=== PATIENT | male | born 1940 | race Caucasian/White ===

== ENCOUNTER 2024-12-12 15:18 | Inpatient (IN) | payer MEDICARE, SELFPAY ==
[2024-12-12] VITALS (12 sets, daily range): BP systolic 116–149; BP diastolic 66–85; PULSE 55–69; RESP 15–20; TEMP 36.5–36.6; O2SAT 97–99; BMI 24.5
--- NOTE | ~2024-12-12 | XR_ITS ---
EXAMINATION: XR chest 2V Exam Date/Time: 12/12/2024 16:18 CDT HISTORY: chest pain Comparison: 11/02/2024; CT cap 11/02/2024. RESULT: Lines, tubes, and devices: Cholecystectomy clips. Lungs and pleura: Clear. Cardiomediastinal silhouette: Stable. Enlarged thyroid. Other: No acute osseous or upper abdominal finding. IMPRESSION: No acute cardiopulmonary process. Reviewed, dictated and finalized at location K.
--- NOTE | 2024-12-12 15:22 | ECG_ITS ---
Test Date: 2024-12-12 15:30:48 Measurements Intervals Colbert Rate: 51 P: 0 MD: 0 QRS: -40 QRSD: 118 T: 34 QT: 425 QTc: 395 Interpretive Statements ATRIAL FIBRILLATION WITH SLOW VENTRICULAR RESPONSE LEFT AXIS DEVIATION PATTERN CONSISTENT WITH PULMONARY DISEASE INCOMPLETE RIGHT BUNDLE BRANCH BLOCK POOR R WAVE PROGRESSION BASELINE ARTIFACT- I, III ABNORMAL ECG Compared to ECG 11/03/2024 23:38:56 SINUS RHYTHM NO LONGER PRESENT Electronically Signed On 12-12-2024 20:31:41 CDT by Mike Jett D.O.
--- NOTE | 2024-12-12 15:38 | ED_ITS ---
HPI - Chest Pain General Chief Complaint: Chest Pain Stated Complaint: chest pain Time Seen by Provider: 12/12/24 15:26 Source: patient and EMS Mode of arrival: EMS Limitations: no limitations History of Present Illness HPI narrative: 84 years old white male came from halfway by ambulance with sudden onset of chest pain while sitting dull aching, center of the chest, /, got better slightly better on Tylenol, got much better on sublingual nitroglycerin, on arrival to the ED 06/15. Pain radiating to both arms, and lower extremity bilaterally. Patient reports it is difficult to explain how the pain feels like. History of AFib, coronary stent x4. Patient is telling me that he would like to check for Lyme disease because he had a lot of tick bite over the last 2 years. Patient denies any fever, chills, nausea, vomiting, shortness of breath, back pain or abdominal pain Patient report a lot of nightmares with trouble sleeping at night. Related Data Home Medications ?Medication ?Instructions ?Recorded ?Confirmed ?Last Taken ?Type ascorbic acid (vitamin C) 500 mg 500 mg PO DAILY 09/15/21 11/02/24 11/01/24 History tablet vit C 250 mg-vit E 90 mg-zinc 40 1 tablet PO .q12hr 09/15/21 11/02/24 05/09/24 History mg-copper 1 mu-zfyrto-pceyig capsule (PreserVision AREDS-2) vitamin B complex (B 1 tablet PO DAILY 09/15/21 11/02/24 11/01/24 History Complex-Vitamin B12 tablet) acetaminophen 500 mg capsule 500 mg PO BID 07/03/22 11/02/24 11/01/24 History cholecalciferol (vitamin D3) 125 50 mcg PO DAILY 07/03/22 11/02/24 11/01/24 History mcg (5,000 unit) capsule coenzyme Q10 100 mg capsule 200 mg PO DAILY 07/03/22 11/02/24 11/01/24 History omega 3-pzm-gqc-fish oil 1,200 mg 1 cap PO DAILY 07/03/22 11/02/24 11/01/24 History (144 mg-216 mg) capsule (Fish Oil) zbrzvepzpdzd-yewiyvtr-obclzu tablet 1 tablet PO DAILY 04/24/23 11/02/24 11/01/24 History levetiracetam 1,000 mg tablet 1,000 mg PO Q12H 05/24/24 11/02/24 11/01/24 History pantoprazole 40 mg tablet,delayed 20 mg PO Q12H 05/24/24 11/02/24 11/01/24 History release (Protonix) vit C 250 mg-vit E 90 mg-zinc 40 1 tablet PO BID 11/02/24 11/02/24 11/01/24 History mg-copper 1 au-foiwqn-zvhrip capsule (Eye Health AREDS-2) Allergies Allergy/AdvReac Type Severity Reaction Status Date / Time No Known Allergies Allergy Verified 12/12/24 15:30 Review of Systems 2 Review of Systems: All systems reviewed & are unremarkable except as noted in HPI and below PMFSH Past Medical History Medical History History of GI diverticular bleed (07/2023) Diverticulitis Chronic GERD Atrial fibrillation Ischemic cardiomyopathy Coronary artery disease Hyperlipidemia Diet-controlled diabetes mellitus Cerebrovascular accident with no reported residual deficits Chronic vascular disorders of intestine Essential (primary) hypertension Cerebral atherosclerosis Epilepsy, unspecified, not intractable, without status epilepticus Generalized anxiety disorder Glaucoma Surgical History Surgical History History of cardiac catheterization 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 Code status: Full code. Smoking packs per day: 1.5 Smoking cigarettes per day: 30.0 Years smoked: 10 Smoking pack-years: 15.00 Smoking status: Former smoker Tobacco type: cigarettes Smokeless tobacco user: chewing tobacco Second hand tobacco smoke exposure: Yes Smoking end date: 11/02/24 Additional smoking assessment comments: quit chewing tobacco in 2022 Alcohol intake: former Substance use: never Substance use type: does not use Do You Feel Safe in your Home?: Yes Lack of Transportation: No Lack of Food: Never True Current Housing: I Have Housing Concerned About Future Housing: No Difficulty Paying Gas/Electric Bills: No Difficulty Paying for Meds: No Currently Unemployed: No Education: Trade/Vocational Certificate Difficulty w/ Childcare or Family Care: No Living arrangements: with family Additional living arrangements comments: Lives with in [place]. Ambulates with a walker. 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 Spiritual care concerns: No Exam 2 Narrative: General appearance: Well-developed, well-nourished Skin: Normal color Head: Normocephalic, nontraumatic Eyes: Clear conjunctiva ENT: Oropharynx normal, ears normal, nose normal Neck: Supple, nontender Chest and respiratory: Airway patent, no respiratory distress, no accessory muscle use Heart: Regular rate/rhythm Abdomen: Soft, nontender, no organomegaly, quiet bowel sounds Vascular: Normal peripheral pulses, normal capillary refill. Musculoskeletal: Normal range of motion, nontender back Neurologic: Alert and oriented ?3, STITCHDOWNS TOE FORMER is normal as tested, no gross motor deficit Course Vital Signs Vital signs: Vital Signs Temperature 36.6 C 12/12/24 15:23 Pulse Rate 58 L 12/12/24 15:23 Respiratory Rate 20 12/12/24 15:23 Blood Pressure 140/85 12/12/24 15:23 Pulse Oximetry 99 12/12/24 15:23 Oxygen Delivery Room Air 12/12/24 15:23 Temperature 36.6 C 12/12/24 15:23 Pulse Rate 63 12/12/24 15:29 Respiratory Rate 20 12/12/24 15:23 Blood Pressure 140/85 12/12/24 15:23 Pulse Oximetry 99 12/12/24 15:23 Oxygen Delivery Room Air 12/12/24 15:23 MDM - Chest Pain MDM Narrative Medical decision making narrative: Patient came with sudden onset of chest pain 11/12 currently 06/15 Vital signs showing heart rate of 58 beats per minute, AFib. Otherwise within normal limit Physical examination showing AFib. Differential diagnosis include acute coronary syndrome, anxiety like symptoms, chest wall pain, costochondritis, esophagitis, pneumonia, pleural effusion. Blood workup today include CBC, CMP, troponin, proBNP and coags showed sodium 128, pro BMP 2550 EKG on arrival showed AFib with slow ventricular response at 51 beats per minute Chest x-ray showed no acute abnormalities Currently patient is pain-free and symptom-free. Admit to hospitalist with diagnosis of chest pain, hyponatremia, and insomnia Differential Diagnosis Differential diagnosis: Likely stable angina, unstable angina pectoris, atypical chest pain, costochondritis and chest pain Medical Records Data Attestation: I reviewed the patient's medical records. Lab Data Attestation: I reviewed the patient's lab results. 12/12/24 15:36 12/12/24 15:36 Labs: Lab Results 12/12/24 Range/Units 15:36 WBC 6.5 (4.5-10.0) K/mm3 RBC 3.60 L (4.6-6.20) M/mm3 Hgb 11.7 L (14.0-18.0) g/dL Hct 34.9 L (42.0-52.0) % MCV 96.9 (80-100) fl MCH 32.5 (26-34) pg MCHC 33.5 (32-36) g/dl RDW 14.1 (11.5-14.5) % Plt Count 207 (150-375) k/mm3 MPV 8.4 (7.4-10.4) fl Immature Gran % (Auto) 1.1 H (0-0.5) % Neut % (Auto) 64.0 (45.5-73.1) % Lymph % (Auto) 16.2 L (18.3-44.2) % Dane % (Auto) 13.0 H (2.6-8.5) % Eos % (Auto) 4.6 H (0-4.4) % Baso % (Auto) 1.1 (0.2-1.2) % Lymph # (Auto) 1.06 (0.9-3.2) K/mm3 Dane # (Auto) 0.9 H (0.1-0.6) K/mm3 Eos # (Auto) 0.3 (0-0.3) K/mm3 Baso # (Auto) 0.1 (0.0-0.1) K/mm3 Abs Immat Gran (auto) 0.07 H (0.00-0.031) K/mm3 Absolute Neuts (auto) 4.2 (1.3-6.7) K/mm3 Absolute Nucleated RBC 0.000 (0.0-0.012) K/mm3 Nucleated RBC % 0.0 (0.0-0.2) % PT 13.1 (11.1-14.7) Seconds INR 1.0 APTT 28.6 (22.3-36.8) Seconds Sodium 128 L (137-145) mmol/L Potassium 4.9 (3.4-5.0) mmol/L Chloride 95 L (98-107) mmol/L Carbon Dioxide 26 (22-30) mmol/L Anion Gap 7 (4-12) mmol/L BUN 13 (9-20) mg/dL Creatinine 0.92 (0.7-1.3) mg/dL Estim Creat Clear Calc 53 ml/min Estimated GFR > 60 (59 - ) Glucose 108 (65-110) mg/dL Calcium 9.1 (8.4-10.2) mg/dL Total Bilirubin 0.4 (0.2-1.3) mg/dL AST 30 (17-59) U/L ALT 24 (6-50) U/L Alkaline Phosphatase 69 (38-126) U/L Troponin I < 0.012 (0.000-0.034) ng/mL NT-Pro-B Natriuret Pep 2550 H (19.9-100) pg/mL Total Protein 6.5 (6.3-8.2) g/dL Albumin 4.0 (3.5-5.1) g/dL Lipase 196 (23-300) U/L Imaging Data Radiologist's impression: Impressions Chest X-Ray 12/12/24 16:43 IMPRESSION: No acute cardiopulmonary process. ECG Data EKG #1: Attestation: I personally reviewed and interpreted this ECG as follows: ECG completion date: 12/12/24 Interpretation: AFib with slow ventricular response at 51 beats per minute patent consistent with pulmonary disease Discharge Plan Discharge Clinical Impression: Chest pain, Acute hyponatremia, Chronic a-fib, Insomnia Patient Disposition: Still a Patient Condition: Stable Additional Instructions: Admit to hospitalist Patient Language: Mongolian Prescriptions: No Action clopidogrel 75 mg tablet 75 mg PO DAILY Qty: 90 1RF metoprolol succinate 50 mg tablet extended release 24 hr 50 mg PO DAILY Qty: 100 1RF rosuvastatin 40 mg tablet 40 mg PO DAILY Qty: 90 1RF coenzyme Q10 100 mg capsule 200 mg PO DAILY cholecalciferol (vitamin D3) 125 mcg (5,000 unit) capsule 50 mcg PO DAILY acetaminophen 500 mg capsule 500 mg PO BID omega 4-pen-qvg-fish oil [Fish Oil] 1,200 (144-216) mg capsule 1 cap PO DAILY ferrous sulfate 325 mg (65 mg iron) tablet 325 mg PO DAILY Qty: 90 0RF ascorbic acid (vitamin C) 500 mg Tablet 500 mg PO DAILY vitamin B complex [B Complex-Vitamin B12] Tablet 1 tablet PO DAILY PreserVision AREDS-2 250-90-40-1 mg Capsule 1 tablet PO .q12hr rrjzqfeegyld-bopwhxcp-fxlfdw Tablet 1 tablet PO DAILY pantoprazole [Protonix] 40 mg tablet,delayed release (DR/EC) 20 mg PO Q12H levetiracetam 1,000 mg tablet 1,000 mg PO Q12H polyethylene glycol 3350 [Miralax] 17 gram Powder In Packet 17 g PO QAM Qty: 14 0RF Eye Health AREDS-2 250-90-40-1 mg capsule 1 tablet PO BID Follow-up/Referrals: Daren Colvin MD [Primary Care Provider] -
[2024-12-12 15:41] LABS: Hematocrit 34.9 % (42.0-52.0); Hemoglobin 11.7 g/dL (14.0-18.0); Immature Granulocyte Percent A 1.1 % (0-0.5); Lymphocytes Absolute Auto 1.06 K/mm3 (0.9-3.2); Mean Corpuscular HGB Conc 33.5 g/dl (32-36); Mean Corpuscular Hemoglobin 32.5 pg (26-34); Mean Corpuscular Volume 96.9 fl (80-100); Nucleated Red Blood Cells Absolute Auto 0.000 K/mm3 (0.0-0.012); Nucleated Red Blood Cells Perc 0.0 % (0.0-0.2); Platelet Count Result 207 k/mm3 (150-375); Red Blood Count 3.60 M/mm3 (4.6-6.20); White Blood Count 6.5 K/mm3 (4.5-10.0)
[2024-12-12 15:50] LABS: Alanine Aminotransferase 24 U/L (6-50); Albumin Level 4.0 g/dL (3.5-5.1); Alkaline Phosphatase 69 U/L (38-126); Anion Gap 7 mmol/L (4-12); Aspartate Amino Transferase 30 U/L (17-59); Bilirubin,Total 0.4 mg/dL (0.2-1.3); Blood Urea Nitrogen 13 mg/dL (9-20); Calcium 9.1 mg/dL (8.4-10.2); Carbon Dioxide 26 mmol/L (22-30); Chloride 95 mmol/L (98-107); Estimated CRCL calculation 53 ml/min; Estimated Glomerular Filt Rate > 60; Glucose 108 mg/dL (65-110); Lipase 196 U/L (23-300); Potassium 4.9 mmol/L (3.4-5.0); Sodium 128 mmol/L (137-145); Total Protein 6.5 g/dL (6.3-8.2)
[2024-12-12 15:52] LABS: INR 1.0; Prothrombin Time 13.1 Seconds (11.1-14.7)
[2024-12-12 15:53] LABS: Partial Thromboplastin Time 28.6 Seconds (22.3-36.8)
[2024-12-12 16:02] LABS: Troponin I < 0.012 ng/mL (0.000-0.034)
[2024-12-12 16:26] LABS: NT Pro B Type Natriuretic Pept 2550 pg/mL (19.9-100)
--- NOTE | 2024-12-12 16:43 | P.HP_ITS ---
H&P: HPI History of Present Illness Date/Time: 12/12/24 16:43 Chief Complaint: Chest pain Narrative: 84-year-old male past medical history of atrial fib, CAD status post stents, hyperlipidemia, hypertension, diabetes and GERD presents the hospital with chest pain. Patient states that he was walking react chest pain as 7/10. Was given Tylenol and nitro and taken to the hospital. By the time he got to the hospital his chest pain was relieved. He stated the pain radiated to both arms. According to ED notes the patient on IV checked for Lyme disease as he had a bite over 2 years ago. Patient denies all symptoms at bedside exam. Lab work shows hemoglobin 11.7, sodium of 128, chloride 95, 1st troponin negative, BNP 2550, EKG shows atrial fibrillation with a rate of 51. Patient is being admitted for chest pain workup. Review of Systems Review of Systems: 12 systems were reviewed and are negativ e except for as per HPI. 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 Code status: Full code. Smoking packs per day: 1.5 Smoking cigarettes per day: 30.0 Years smoked: 10 Smoking pack-years: 15.00 Smoking status: Former smoker Smokeless tobacco user: chewing tobacco Second hand tobacco smoke exposure: Yes Additional smoking assessment comments: quit chewing tobacco in 2022 Alcohol intake: former Substance use: never Substance use type: does not use Do You Feel Safe in your Home?: Yes Lack of Transportation: No Lack of Food: Never True Current Housing: I Have Housing Concerned About Future Housing: No Difficulty Paying Gas/Electric Bills: No Difficulty Paying for Meds: No Currently Unemployed: No Education: Trade/Vocational Certificate Difficulty w/ Childcare or Family Care: No Living arrangements: with family Additional living arrangements comments: Lives with in [place]. Ambulates with a walker. 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 Spiritual care concerns: No Meds Home Medications and Allergies Home Medications ?Medication ?Instructions ?Recorded ?Confirmed ?Type ascorbic acid (vitamin C) 500 mg 500 mg PO DAILY 09/15/21 11/02/24 History tablet vit C 250 mg-vit E 90 mg-zinc 40 1 tablet PO .q12hr 09/15/21 11/02/24 History mg-copper 1 at-rjgmgu-zhlywr capsule (PreserVision AREDS-2) vitamin B complex (B 1 tablet PO DAILY 09/15/21 11/02/24 History Complex-Vitamin B12 tablet) acetaminophen 500 mg capsule 1,000 mg PO .q12hr 07/03/22 12/12/24 History cholecalciferol (vitamin D3) 125 50 mcg PO DAILY 07/03/22 11/02/24 History mcg (5,000 unit) capsule coenzyme Q10 100 mg capsule 200 mg PO DAILY 07/03/22 11/02/24 History omega 5-oxf-uae-fish oil 1,200 mg 1 cap PO DAILY 07/03/22 11/02/24 History (144 mg-216 mg) capsule (Fish Oil) bviyusmbmzrh-jrrsmyfa-akeopm tablet 1 tablet PO DAILY 04/24/23 11/02/24 History ferrous sulfate 325 mg (65 mg 325 mg PO DAILY #90 tabs 11/06/23 11/02/24 Rx iron) tablet clopidogrel 75 mg tablet 75 mg PO DAILY #90 tabs 03/25/24 12/12/24 Rx metoprolol succinate 50 mg 50 mg PO DAILY #100 tabs 03/25/24 12/12/24 Rx tablet,extended release 24 hr rosuvastatin 40 mg tablet 40 mg PO DAILY #90 tabs 03/25/24 12/12/24 Rx levetiracetam 1,000 mg tablet 1,000 mg PO Q12H 05/24/24 12/12/24 History pantoprazole 40 mg tablet,delayed 20 mg PO Q12H 05/24/24 12/12/24 History release (Protonix) polyethylene glycol 3350 17 gram 17 g PO QAM #14 ea 05/27/24 11/02/24 Rx oral powder packet (Miralax) vit C 250 mg-vit E 90 mg-zinc 40 1 tablet PO BID 11/02/24 11/02/24 History mg-copper 1 vo-pwusif-yhwhhl capsule (Eye Health AREDS-2) Allergies Allergy/AdvReac Type Severity Reaction Status Date / Time No Known Allergies Allergy Verified 12/12/24 18:25 Vital Signs Vital Signs - 24 hr 12/12/24 15:23 12/12/24 15:29 Temperature 97.8 F Pulse Rate 58 L 63 Respiratory Rate 20 Blood Pressure 140/85 Pulse Oximetry 99 Oxygen Delivery Room Air Exam Narrative: General: well appearing, appears stated age. HEENT: normocephalic, atraumatic. Mucous membranes moist. EOMI, PERRLA, bilateral sclera anicteric, no conjunctival injection. Neck supple without JVD, lymphadenopathy, or bruit. Respiratory: clear to ascultation bilaterally. No rales/rhonic/wheezes. Cardiovascular: Regular rate and rhythm, normal S1-S2 upon ascultation. No murmurs, rubs, or clicks. PMI is nondisplaced, capillary refill less than 3 second. Abdomen: Soft, round, no pulsatile masses, nondistended and nontender. No rebound, no guarding. No CVA tenderness, no hepatosplenomegaly. Bowel sounds present to all four quadrants. No high pitch or tinkling sounds, resonant to percussion. Extremities: No cyanosis, clubbing, or edema present. Pulses are palpable 2/2. Active ROM to all four extremities. Neuro: Alert and orientated x 4. PERRLA. Cranial nerves 2-12 intact without focal deficit. Skin: Warm, dry, and intact, without rash, erythema, or lesion. Psych: pleasant, cooperative, normal speech, normal affect, no hallucinations, no dysarthia H&P: Results Labs Labs: Short CBC 12/12/24 Range/Units 15:36 WBC 6.5 (4.5-10.0) K/mm3 Hgb 11.7 L (14.0-18.0) g/dL Hct 34.9 L (42.0-52.0) % Plt Count 207 (150-375) k/mm3 BMP 12/12/24 15:36 Sodium 128 L Potassium 4.9 Chloride 95 L Carbon Dioxide 26 BUN 13 Creatinine 0.92 Glucose 108 Calcium 9.1 Cardiac Enzymes 12/12/24 Range/Units 15:36 Troponin I < 0.012 (0.000-0.034) ng/mL Liver Function 12/12/24 Range/Units 15:36 Total Bilirubin 0.4 (0.2-1.3) mg/dL AST 30 (17-59) U/L ALT 24 (6-50) U/L Alkaline Phosphatase 69 (38-126) U/L Albumin 4.0 (3.5-5.1) g/dL Assessment and Plan Assessment and plan (1) Chest pain: Code(s): R07.9 - Chest pain, unspecified Status: Acute Assessment and Plan: Chest pain workup Trend troponins EKG as needed Nitro Echocardiogram pending (2) Hyponatremia: Code(s): E87.1 - Hypo-osmolality and hyponatremia Status: Acute Assessment and Plan: Lasix x1 Regular diet (3) Chronic a-fib: Code(s): I48.20 - Chronic atrial fibrillation, unspecified Status: Acute Assessment and Plan: Continue metoprolol (4) Seizures: Code(s): R56.9 - Unspecified convulsions Status: Acute Assessment and Plan: Continue Keppra Quality VTE Prophylaxis VTE prophylaxis: mechanical ordered and pharmacologic ordered Hospitalist MIPS Advance Care Plan I have confirmed that the patient's Advanced Care Plan is present, code status is documented, or surrogate decision maker is listed in patient medical record.: Yes Medication Reconciliation I have utilized all available resources to obtain, update and review the patients current medications (includes all prescriptions, OTC, herbals, cannabis, and nutritional supplements).: Yes
--- NOTE | 2024-12-12 18:24 | ADMGEN ---
This patient, Fernando Rocha, was admitted to IMU Room 209-01. Patient/family oriented to hospital policies and general routines including ID bracelet, bed and alarms, visiting hours, pain management, procedures, bathroom and other care routines, personal items, smoking policy, room service/diet, and visiting hours. Information on how to activate the Rapid Response Team has been discussed. Patient/Family are encouraged to report perceived risks to care and to ask questions if they do not understand what they are told or what they should do.
[2024-12-12] MEDS: SODIUM CHLORIDE 0.9% IV 1,000 ML 60 ML IV CONT (18:59)
[2024-12-12 19:31] LABS: Troponin I < 0.012 ng/mL (0.000-0.034)
[2024-12-12] MEDS: FUROSEMIDE INJ 40 MG/4 ML VIAL 20 MG IV PUSH (21:18)
[2024-12-12] MEDS: PANTOPRAZOLE SOD SESQUIHYDRATE 20 MG TAB PO (21:19)
[2024-12-12 22:06] LABS: Troponin I < 0.012 ng/mL (0.000-0.034)
[2024-12-13] VITALS (17 sets, daily range): BP systolic 128–171; BP diastolic 66–85; PULSE 53–85; RESP 16–20; TEMP 36.4–37; O2SAT 95–100
[2024-12-13 05:00] LABS: Hematocrit 36.2 % (42.0-52.0); Hemoglobin 11.7 g/dL (14.0-18.0); Immature Granulocyte Percent A 1.3 % (0-0.5); Lymphocytes Absolute Auto 1.14 K/mm3 (0.9-3.2); Mean Corpuscular HGB Conc 32.3 g/dl (32-36); Mean Corpuscular Hemoglobin 31.9 pg (26-34); Mean Corpuscular Volume 98.6 fl (80-100); Nucleated Red Blood Cells Absolute Auto 0.000 K/mm3 (0.0-0.012); Nucleated Red Blood Cells Perc 0.0 % (0.0-0.2); Platelet Count Result 194 k/mm3 (150-375); Red Blood Count 3.67 M/mm3 (4.6-6.20); White Blood Count 6.3 K/mm3 (4.5-10.0)
[2024-12-13 05:11] LABS: Anion Gap 6 mmol/L (4-12); Blood Urea Nitrogen 12 mg/dL (9-20); Calcium 9.0 mg/dL (8.4-10.2); Carbon Dioxide 29 mmol/L (22-30); Chloride 94 mmol/L (98-107); Estimated CRCL calculation 51 ml/min; Estimated Glomerular Filt Rate > 60; Glucose 92 mg/dL (65-110); Potassium 4.6 mmol/L (3.4-5.0); Sodium 129 mmol/L (137-145)
--- NOTE | 2024-12-13 06:24 | PC.NURSE ---
12/13/24 Message left for Kimo MATTSON (Hawk richards) to call back in regards to obtaining an updated medication list for this patient.
--- NOTE | 2024-12-13 08:45 | P.HP_ITS ---
H&P: HPI History of Present Illness Date/Time: 12/13/24 08:45 Chief Complaint: Chest pain Narrative: This is a 84-year-old male with history of bilateral cerebellar strokes, diverticulosis, PMFSH Past Medical History Medical History History of GI diverticular bleed (07/2023) Diverticulitis Chronic GERD Atrial fibrillation Ischemic cardiomyopathy Coronary artery disease Hyperlipidemia Diet-controlled diabetes mellitus Cerebrovascular accident with no reported residual deficits Chronic vascular disorders of intestine Essential (primary) hypertension Cerebral atherosclerosis Epilepsy, unspecified, not intractable, without status epilepticus Generalized anxiety disorder Glaucoma Surgical History Surgical History History of cardiac catheterization History of intravascular stent placement (2020) for superior mesenteric artery stenosis History of coronary artery stent placement x4 History of cholecystectomy (1999) History of open reduction and internal fixation (ORIF) procedure (04/2023) repair of right hip fracture History of bilateral knee replacement left 2010 right 2019 History of cataract extraction Family History Family History Father Cerebrovascular accident Sibling Breast cancer Sister Diabetes mellitus Kidney failure Social History Social History Social History: Surrogate medical decision maker: Sera Rocha, spouse. Code status: Full code. Smoking packs per day: 1.5 Smoking cigarettes per day: 30.0 Years smoked: 10 Smoking pack-years: 15.00 Smoking status: Former smoker Smokeless tobacco user: chewing tobacco Second hand tobacco smoke exposure: Yes Additional smoking assessment comments: quit chewing tobacco in 2022 Alcohol intake: former Substance use: never Substance use type: does not use Do You Feel Safe in your Home?: Yes Lack of Transportation: No Lack of Food: Never True Current Housing: I Have Housing Concerned About Future Housing: No Difficulty Paying Gas/Electric Bills: No Difficulty Paying for Meds: No Currently Unemployed: No Education: Trade/Vocational Certificate Difficulty w/ Childcare or Family Care: No Living arrangements: with family Additional living arrangements comments: Lives with in [place]. Ambulates with a walker. 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 Spiritual care concerns: No Meds Home Medications and Allergies Home Medications ?Medication ?Instructions ?Recorded ?Confirmed ?Type ascorbic acid (vitamin C) 500 mg 500 mg PO DAILY 09/15/21 11/02/24 History tablet vit C 250 mg-vit E 90 mg-zinc 40 1 tablet PO .q12hr 09/15/21 11/02/24 History mg-copper 1 ot-swczod-ymujzv capsule (PreserVision AREDS-2) vitamin B complex (B 1 tablet PO DAILY 09/15/21 11/02/24 History Complex-Vitamin B12 tablet) acetaminophen 500 mg capsule 1,000 mg PO .q12hr 07/03/22 12/12/24 History cholecalciferol (vitamin D3) 125 50 mcg PO DAILY 07/03/22 11/02/24 History mcg (5,000 unit) capsule coenzyme Q10 100 mg capsule 200 mg PO DAILY 07/03/22 11/02/24 History omega 6-gpp-jzl-fish oil 1,200 mg 1 cap PO DAILY 07/03/22 11/02/24 History (144 mg-216 mg) capsule (Fish Oil) yjdeahtbgbxp-uyvhvegu-qdfmkx tablet 1 tablet PO DAILY 04/24/23 11/02/24 History ferrous sulfate 325 mg (65 mg 325 mg PO DAILY #90 tabs 11/06/23 11/02/24 Rx iron) tablet clopidogrel 75 mg tablet 75 mg PO DAILY #90 tabs 03/25/24 12/12/24 Rx metoprolol succinate 50 mg 50 mg PO DAILY #100 tabs 03/25/24 12/12/24 Rx tablet,extended release 24 hr rosuvastatin 40 mg tablet 40 mg PO DAILY #90 tabs 03/25/24 12/12/24 Rx levetiracetam 1,000 mg tablet 1,000 mg PO Q12H 05/24/24 12/12/24 History pantoprazole 40 mg tablet,delayed 20 mg PO Q12H 05/24/24 12/12/24 History release (Protonix) polyethylene glycol 3350 17 gram 17 g PO QAM #14 ea 05/27/24 11/02/24 Rx oral powder packet (Miralax) vit C 250 mg-vit E 90 mg-zinc 40 1 tablet PO BID 11/02/24 11/02/24 History mg-copper 1 yw-xmzjnd-etnhkq capsule ([facility] AREDS-2) Allergies Allergy/AdvReac Type Severity Reaction Status Date / Time No Known Allergies Allergy Verified 12/13/24 06:20 Vital Signs Vital Signs - 24 hr 12/12/24 15:23 12/12/24 15:24 12/12/24 15:29 Temperature 97.8 F Pulse Rate 58 L 60 63 Respiratory Rate 20 15 Blood Pressure 140/85 140/85 Pulse Oximetry 99 99 Oxygen Delivery Room Air 12/12/24 15:31 12/12/24 16:15 12/12/24 16:16 Temperature Pulse Rate 61 62 68 Respiratory Rate 18 17 15 Blood Pressure 139/81 126/73 Pulse Oximetry 99 98 97 Oxygen Delivery 12/12/24 17:41 12/12/24 18:48 12/12/24 20:00 Temperature 97.7 F 97.8 F Pulse Rate 68 55 L 69 Respiratory Rate 18 20 18 Blood Pressure 116/70 130/66 149/74 H Pulse Oximetry 99 98 99 Oxygen Delivery 12/12/24 20:00 12/12/24 20:55 12/12/24 22:00 Temperature Pulse Rate 62 69 58 L Respiratory Rate 18 Blood Pressure Pulse Oximetry 99 Oxygen Delivery Room Air 12/12/24 22:04 12/13/24 00:00 12/13/24 00:00 Temperature 98.0 F Pulse Rate 58 L 58 L Respiratory Rate 18 Blood Pressure 136/76 Pulse Oximetry 99 99 Oxygen Delivery Room Air 12/13/24 00:22 12/13/24 01:47 12/13/24 04:00 Temperature 97.9 F Pulse Rate 58 L 54 L 63 Respiratory Rate 18 16 Blood Pressure 158/85 H Pulse Oximetry 99 99 Oxygen Delivery Room Air 12/13/24 04:00 12/13/24 04:00 12/13/24 06:00 Temperature Pulse Rate 63 53 L 54 L Respiratory Rate 16 Blood Pressure Pulse Oximetry 99 Oxygen Delivery Room Air 12/13/24 08:00 Temperature 97.7 F Pulse Rate 76 Respiratory Rate 16 Blood Pressure 171/81 H Pulse Oximetry 98 Oxygen Delivery H&P: Results Labs Labs: Short CBC 12/12/24 12/13/24 Range/Units 15:36 04:27 WBC 6.5 6.3 (4.5-10.0) K/mm3 Hgb 11.7 L 11.7 L (14.0-18.0) g/dL Hct 34.9 L 36.2 L (42.0-52.0) % Plt Count 207 194 (150-375) k/mm3 BMP 12/12/24 12/13/24 15:36 04:27 Sodium 128 L 129 L Potassium 4.9 4.6 Chloride 95 L 94 L Carbon Dioxide 26 29 BUN 13 12 Creatinine 0.92 0.97 Glucose 108 92 Calcium 9.1 9.0 Cardiac Enzymes 12/12/24 12/12/24 12/12/24 Range/Units 15:36 19:04 21:29 Troponin I < 0.012 < 0.012 < 0.012 (0.000-0.034) ng/mL Liver Function 12/12/24 Range/Units 15:36 Total Bilirubin 0.4 (0.2-1.3) mg/dL AST 30 (17-59) U/L ALT 24 (6-50) U/L Alkaline Phosphatase 69 (38-126) U/L Albumin 4.0 (3.5-5.1) g/dL
--- NOTE | 2024-12-13 08:51 | PM.IMPN ---
Progress Note: A&P Assessment and Plan (1) Chest pain: Qualifiers: Chest pain type: unspecified Qualified Code(s): R07.9 - Chest pain, unspecified Code(s): R07.9 - Chest pain, unspecified Status: Acute (2) Essential (primary) hypertension: Code(s): I10 - Essential (primary) hypertension Status: Chronic (3) Atrial fibrillation: Code(s): I48.91 - Unspecified atrial fibrillation Status: Acute (4) Seizures: Code(s): R56.9 - Unspecified convulsions Status: Acute Plan This is an 84-year-old male who has a PMH of diverticulosis, history of acute GI bleed, gastritis/peptic ulcer disease, ischemic cardiomyopathy with preserved ejection fraction, atrial fibrillation, CAD status post Megatron stent to 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 His medical history is taken from chart review as he is a poor historian. He does not remember why he is not on a blood thinner for his atrial fibrillation. He reports taking Plavix but not aspirin. He lives at assisted living, reports he was doing nothing around his residence when he had left-sided chest pressure. He had associated dizziness and radiation into both arms. He received aspirin and nitroglycerin with EMS and his symptoms resolved. He had no further chest pain. Denies shortness of breath, nausea vomiting, fever, abdominal pain. He feels this is not the same as his usual peptic ulcer disease. Patient is saturating 99% on room air, atrial fibrillation with controlled rate, blood pressure 140/85. EKG demonstrating AFib with slow ventricular response, complete right bundle branch block, poor R-wave progression, no acute ST changes. Overnight he received Lasix 20 mg IV x1. He was started on a daily aspirin. ----- Concerning for cardiac pain. Due to the patient's complex coronary artery disease, will consult Cardiology. He is unable to clearly tell me the timeline of his cardiac events but he says he had 4 stents placed at [facility] in [place] and then later Dr. Montes sent him to [facility] as he had restenoses. The above-mentioned Megatron stent to a high-grade complex ostial stenosis is taken from Dr. Fleissners clinic note from 01/2024 however I do not have any further notes to rely on. At this time we will continue aspirin 81 mg p.o. q.day, Plavix 75 mg p.o. q.day, Crestor 40 mg p.o. q.day. Continue telemetry. As mentioned, he is unsure why he is not taking a blood thinner and does not report any bleeding episodes but upon chart review he does have GI bleeds. He cannot confidently tell me whether he wants to take a blood thinner or not, will defer further discussion to Cardiology. Holding [employer] metoprolol due to atrial fibrillation with slow ventricular response. Continue [employer] Protonix Continue [employer] Keppra 1000 mg p.o. b.i.d. Accu-Cheks a.c. HS with low-dose insulin sliding scale Chronic hyponatremia, continue to monitor. Patient wishes to be DNR. Lovenox 40 mg subQ q.day. diabetic, heart healthy diet. Intake/output, daily weights. Subjective Date/time seen: 12/13/24 08:51 Interval history: No acute overnight events. Patient denies any further chest pain after admission. He has no shortness of breath. He reports he remembers being told he had atrial fibrillation but anticoagulation was never discussed. He denies any major bleeding events. Review of Systems Review of Systems: All systems reviewed & are unremarkable except as noted in HPI and below (Subjective) Exam Const: General: comfortable and no acute distress HENMT: Mouth: Yes moist mucous membranes Eyes: Pupils: Equal, round and reactive pupils present Neck: Neck: supple Resp: Effort & Inspection: normal respiratory effort Auscultation: clear to auscultation bilaterally Cardio: Rate: regular rate Rhythm: abnormal rhythm GI: Inspection: non-distended GI Palp: Yes Soft to palpation Neuro: Motor exam (neuro): 5/5 motor strength present throughout Extrem: General: no edema Objective Data Vital Signs Vital Signs: Vital Signs - 24 hr 12/12/24 15:23 12/12/24 15:24 12/12/24 15:29 Temperature 97.8 F Pulse Rate 58 L 60 63 Respiratory Rate 20 15 Blood Pressure 140/85 140/85 Pulse Oximetry 99 99 Oxygen Delivery Room Air 12/12/24 15:31 12/12/24 16:15 12/12/24 16:16 Temperature Pulse Rate 61 62 68 Respiratory Rate 18 17 15 Blood Pressure 139/81 126/73 Pulse Oximetry 99 98 97 Oxygen Delivery 12/12/24 17:41 12/12/24 18:48 12/12/24 20:00 Temperature 97.7 F 97.8 F Pulse Rate 68 55 L 69 Respiratory Rate 18 20 18 Blood Pressure 116/70 130/66 149/74 H Pulse Oximetry 99 98 99 Oxygen Delivery 12/12/24 20:00 12/12/24 20:55 12/12/24 22:00 Temperature Pulse Rate 62 69 58 L Respiratory Rate 18 Blood Pressure Pulse Oximetry 99 Oxygen Delivery Room Air 12/12/24 22:04 12/13/24 00:00 12/13/24 00:00 Temperature 98.0 F Pulse Rate 58 L 58 L Respiratory Rate 18 Blood Pressure 136/76 Pulse Oximetry 99 99 Oxygen Delivery Room Air 12/13/24 00:22 12/13/24 01:47 12/13/24 04:00 Temperature 97.9 F Pulse Rate 58 L 54 L 63 Respiratory Rate 18 16 Blood Pressure 158/85 H Pulse Oximetry 99 99 Oxygen Delivery Room Air 12/13/24 04:00 12/13/24 04:00 12/13/24 06:00 Temperature Pulse Rate 63 53 L 54 L Respiratory Rate 16 Blood Pressure Pulse Oximetry 99 Oxygen Delivery Room Air 12/13/24 08:00 Temperature 97.7 F Pulse Rate 76 Respiratory Rate 16 Blood Pressure 171/81 H Pulse Oximetry 98 Oxygen Delivery Intake/Output Intake/Output: Intake & Output 12/10/24 12/11/24 12/12/24 12/13/24 23:59 23:59 23:59 23:59 Intake Total 490 Output Total 120 3000 Balance -120 -2510 Meds/Results Medications: Active Medications Generic Name Dose Route Start Last Admin Trade Name Freq PRN Reason Stop Dose Admin Acetaminophen 650 mg 12/12/24 16:46 Acetaminophen 325 Mg Tablet PO Q4H PRN Mild Pain (1-3) or Fever Aspirin 81 mg 12/13/24 08:00 Aspirin 81 Mg Chewable Tablet PO DAILY@0800 [facility] Clopidogrel Bisulfate 75 mg 12/13/24 09:00 Clopidogrel Bisulfate 75 Mg Tablet PO DAILY [facility] Docusate Sodium 100 mg 12/12/24 17:10 Docusate Sodium 100 Mg Capsule PO BID PRN Constipation Enoxaparin Sodium 40 mg 12/13/24 09:00 Enoxaparin 40 Mg/0.4 Ml Syringe SUB-Q DAILY YOHANA Sodium Chloride 1,000 mls @ 60 mls/hr 12/12/24 16:50 12/12/24 18:59 Normal Saline Iv IV CONT 60 mls/hr .[id number] YOHANA Administration Levetiracetam 1,000 mg 12/12/24 21:00 12/12/24 21:19 Levetiracetam 500 Mg Tablet PO 1,000 mg Q12HR YOHANA Administration Metoprolol Succinate 50 mg 12/13/24 09:00 Metoprolol Succinate Ext Rel 50 Mg Tabcr PO DAILY YOHANA Nitroglycerin 0.4 mg 12/12/24 16:46 Nitroglycerin Sl 0.4 Mg Tablet SUBLINGUAL Q5MIN PRN Chest Pain Pantoprazole Sodium 20 mg 12/12/24 21:00 12/12/24 21:19 Pantoprazole Sod Sesquihydrate 20 Mg Tab PO 20 mg Q12HR YOHANA Administration Perflutren Lipid Microsphere 0 ml 12/12/24 19:48 Perflutren Lipid Microspheres 1.5 Ml Vial Diluted To 10 Ml Total Volume IV PUSH 12/15/24 19:48 ONCE PRN adequate visualization Protocol Rosuvastatin Calcium 40 mg 12/13/24 09:00 Rosuvastatin 20 Mg Tablet PO DAILY YOHANA Zolpidem Tartrate 5 mg 12/12/24 16:51 Zolpidem Tartrate (*Crx) 5 Mg Tablet PO HS PRN Insomnia Radiology Results: ITS Impressions Chest X-Ray 12/12/24 16:43 IMPRESSION: No acute cardiopulmonary process. Labs Labs: Laboratory Results - last 24 hr 12/12/24 12/12/24 12/12/24 15:36 19:04 21:29 WBC 6.5 RBC 3.60 L Hgb 11.7 L Hct 34.9 L MCV 96.9 MCH 32.5 MCHC 33.5 RDW 14.1 Plt Count 207 MPV 8.4 Immature Gran % (Auto) 1.1 H Neut % (Auto) 64.0 Lymph % (Auto) 16.2 L [place] % (Auto) 13.0 H Eos % (Auto) 4.6 H Baso % (Auto) 1.1 Lymph # (Auto) 1.06 [place] # (Auto) 0.9 H Eos # (Auto) 0.3 Baso # (Auto) 0.1 Abs Immat Gran (auto) 0.07 H Absolute Neuts (auto) 4.2 Absolute Nucleated RBC 0.000 Nucleated RBC % 0.0 PT 13.1 INR 1.0 APTT 28.6 Sodium 128 L Potassium 4.9 Chloride 95 L Carbon Dioxide 26 Anion Gap 7 BUN 13 Creatinine 0.92 Estim Creat Clear Calc 53 Estimated GFR > 60 Glucose 108 Calcium 9.1 Total Bilirubin 0.4 AST 30 ALT 24 Alkaline Phosphatase 69 Troponin I < 0.012 < 0.012 < 0.012 NT-Pro-B Natriuret Pep 2550 H Total Protein 6.5 Albumin 4.0 Lipase 196 12/13/24 04:27 WBC 6.3 RBC 3.67 L Hgb 11.7 L Hct 36.2 L MCV 98.6 MCH 31.9 MCHC 32.3 RDW 14.1 Plt Count 194 MPV 8.7 Immature Gran % (Auto) 1.3 H Neut % (Auto) 60.6 Lymph % (Auto) 18.2 L [place] % (Auto) 12.8 H Eos % (Auto) 6.1 H Baso % (Auto) 1.0 Lymph # (Auto) 1.14 [place] # (Auto) 0.8 H Eos # (Auto) 0.4 H Baso # (Auto) 0.1 Abs Immat Gran (auto) 0.08 H Absolute Neuts (auto) 3.8 Absolute Nucleated RBC 0.000 Nucleated RBC % 0.0 PT INR APTT Sodium 129 L Potassium 4.6 Chloride 94 L Carbon Dioxide 29 Anion Gap 6 BUN 12 Creatinine 0.97 Estim Creat Clear Calc 51 Estimated GFR > 60 Glucose 92 Calcium 9.0 Total Bilirubin AST ALT Alkaline Phosphatase Troponin I NT-Pro-B Natriuret Pep Total Protein Albumin Lipase
[2024-12-13] MEDS: ROSUVASTATIN 20 MG TABLET 40 MG PO (09:22)
[2024-12-13] MEDS: ASPIRIN 81 MG CHEWABLE TABLET PO (09:22)
[2024-12-13] MEDS: ENOXAPARIN 40 MG/0.4 ML SYRINGE SUB-Q (09:22)
[2024-12-13] MEDS: CLOPIDOGREL BISULFATE 75 MG TABLET PO (09:22)
[2024-12-13] MEDS: PANTOPRAZOLE SOD SESQUIHYDRATE 20 MG TAB PO ×2 (09:22→20:07)
--- NOTE | 2024-12-13 11:09 | ECG_ITS ---
Test Date: 2024-12-13 11:18:19 Measurements Intervals [place] Rate: 64 P: 0 [place]: 0 QRS: -45 QRSD: 131 T: 19 QT: 414 QTc: 427 Interpretive Statements ATRIAL FIBRILLATION RIGHT BUNDLE BRANCH BLOCK LEFT ANTERIOR FASCICULAR BLOCK BASELINE WANDER- V4-V6 ABNORMAL ECG Compared to ECG 12/12/2024 15:30:48 HEART RATE HAS INCREASED Electronically Signed On 12-13-2024 12:34:48 CDT by Mike Jett D.O.
[2024-12-13] MEDS: NITROGLYCERIN SL 0.4 MG TABLET SUBLINGUAL (11:16)
--- NOTE | 2024-12-13 11:21 | ECG_ITS ---
Test Date: 2024-12-13 11:23:33 Measurements Intervals [place] Rate: 71 P: 0 [place]: 0 QRS: -53 QRSD: 129 T: 19 QT: 392 QTc: 428 Interpretive Statements ATRIAL FIBRILLATION RIGHT BUNDLE BRANCH BLOCK LEFT ANTERIOR FASCICULAR BLOCK ABNORMAL ECG Compared to ECG 12/13/2024 11:18:19 No significant changes Electronically Signed On 12-13-2024 12:35:03 CDT by Mike Jett D.O.
[2024-12-13 11:55] LABS: Troponin I < 0.012 ng/mL (0.000-0.034)
--- NOTE | 2024-12-13 12:23 | PM.CNCAR ---
Assessment and Plan Assessment and plan (1) Unstable angina: Code(s): I20.0 - Unstable angina Status: Acute Plan Unstable angina, history of coronary disease prior PCI to ostial RCA with drug-eluting stent for complex lesion in currently with similar pain. He had prior stress tests in the past has been negative despite abnormal cardiac catheterization was severe stenosis RCA. Hypertension Mixed dyslipidemia Diabetes mellitus type 2 Plan Left heart catheterization At titrate anti anginal medications Increase metoprolol to 100 mg daily Add Imdur 30 mg daily Statin Aspirin Plavix History of Present Illness History of Present Illness Consult date/time: 12/13/24 12:23 Reason For Visit: chest pain,hyponatremia,history of afib Narrative: 84-year-old male patient presents to the hospital with episodes of chest pain midsternal nonradiating not associated with nausea vomiting or sweating. Chest pain started yesterday lasted for 30 minutes. He had prior similar episodes in the past. Per chart review patient had cardiac catheterization 2021 for recurrent chest pain. At this time stress test was negative. He was found to have severe stenosis of the ostial RCA it was a complex lesion had a stent was megatron 5 x 32. He has been doing well since then until yesterday. He has history of atrial fibrillation. Review of Systems Review of Systems: All systems reviewed & are unremarkable except as noted in HPI and below PMFSH Past Medical History Medical History (Updated 12/13/24 @ 12:28 by Samm Pa MD) History of GI diverticular bleed (07/2023) Diverticulitis Chronic GERD Atrial fibrillation Ischemic cardiomyopathy Coronary artery disease Hyperlipidemia Diet-controlled diabetes mellitus Cerebrovascular accident with no reported residual deficits Chronic vascular disorders of intestine Essential (primary) hypertension Cerebral atherosclerosis Epilepsy, unspecified, not intractable, without status epilepticus Generalized anxiety disorder Glaucoma Surgical History Surgical History History of cardiac catheterization 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 Code status: Full code. Smoking packs per day: 1.5 Smoking cigarettes per day: 30.0 Years smoked: 10 Smoking pack-years: 15.00 Smoking status: Former smoker Smokeless tobacco user: chewing tobacco Second hand tobacco smoke exposure: Yes Additional smoking assessment comments: quit chewing tobacco in 2022 Alcohol intake: former Substance use: never Substance use type: does not use Do You Feel Safe in your Home?: Yes Lack of Transportation: No Lack of Food: Never True Current Housing: I Have Housing Concerned About Future Housing: No Difficulty Paying Gas/Electric Bills: No Difficulty Paying for Meds: No Currently Unemployed: No Education: Trade/Vocational Certificate Difficulty w/ Childcare or Family Care: No Living arrangements: with family Additional living arrangements comments: Lives with in [place]. Ambulates with a walker. Occupation/Education: retired Additional occupation/education comments: [employer] br[employer]. Spiritual care concerns: No Meds Home Medications and Allergies Home Medications ?Medication ?Instructions ?Recorded ?Confirmed ?Type ascorbic acid (vitamin C) 500 mg 500 mg PO DAILY 09/15/21 12/13/24 History tablet vit C 250 mg-vit E 90 mg-zinc 40 1 tablet PO .q12hr 09/15/21 12/13/24 History mg-copper 1 of-hdwrfh-kcowmc capsule (PreserVision AREDS-2) vitamin B complex (B 1 tablet PO DAILY 09/15/21 12/13/24 History Complex-Vitamin B12 tablet) acetaminophen 500 mg capsule 1,000 mg PO .q12hr 07/03/22 12/12/24 History cholecalciferol (vitamin D3) 125 50 mcg PO DAILY 07/03/22 12/13/24 History mcg (5,000 unit) capsule coenzyme Q10 100 mg capsule 200 mg PO DAILY 07/03/22 12/13/24 History omega 5-tif-rfk-fish oil 1,200 mg 1 cap PO DAILY 07/03/22 12/13/24 History (144 mg-216 mg) capsule (Fish Oil) vpqicemnnovy-mtmjmwvp-usnqog tablet 1 tablet PO DAILY 04/24/23 12/13/24 History ferrous sulfate 325 mg (65 mg 325 mg PO DAILY #90 tabs 11/06/23 12/13/24 Rx iron) tablet clopidogrel 75 mg tablet 75 mg PO DAILY #90 tabs 03/25/24 12/12/24 Rx metoprolol succinate 50 mg 50 mg PO DAILY #100 tabs 03/25/24 12/12/24 Rx tablet,extended release 24 hr rosuvastatin 40 mg tablet 40 mg PO DAILY #90 tabs 03/25/24 12/12/24 Rx levetiracetam 1,000 mg tablet 1,000 mg PO Q12H 05/24/24 12/12/24 History pantoprazole 40 mg tablet,delayed 20 mg PO Q12H 05/24/24 12/12/24 History release (Protonix) polyethylene glycol 3350 17 gram 17 g PO QAM #14 ea 05/27/24 12/13/24 Rx oral powder packet (Miralax) calcium carbonate 1,000 mg PO .tid prn 12/13/24 12/13/24 History escitalopram oxalate 10 mg tablet 10 mg PO HS 12/13/24 12/13/24 History Allergies Allergy/AdvReac Type Severity Reaction Status Date / Time No Known Allergies Allergy Verified 12/13/24 06:20 Vital Signs Vital Signs - 24 hr 12/12/24 15:23 12/12/24 15:24 12/12/24 15:29 Temperature 36.6 C Pulse Rate 58 L 60 63 Respiratory Rate 20 15 Blood Pressure 140/85 140/85 Pulse Oximetry 99 99 Oxygen Delivery Room Air 12/12/24 15:31 12/12/24 16:15 12/12/24 16:16 Temperature Pulse Rate 61 62 68 Respiratory Rate 18 17 15 Blood Pressure 139/81 126/73 Pulse Oximetry 99 98 97 Oxygen Delivery 12/12/24 17:41 12/12/24 18:48 12/12/24 20:00 Temperature 36.5 C 36.6 C Pulse Rate 68 55 L 69 Respiratory Rate 18 20 18 Blood Pressure 116/70 130/66 149/74 H Pulse Oximetry 99 98 99 Oxygen Delivery 12/12/24 20:00 12/12/24 20:55 12/12/24 22:00 Temperature Pulse Rate 62 69 58 L Respiratory Rate 18 Blood Pressure Pulse Oximetry 99 Oxygen Delivery Room Air 12/12/24 22:04 08/10/25 00:00 12/13/24 00:00 Temperature 36.7 C Pulse Rate 58 L 58 L Respiratory Rate 18 Blood Pressure 136/76 Pulse Oximetry 99 99 Oxygen Delivery Room Air 12/13/24 00:22 12/13/24 01:47 12/13/24 04:00 Temperature 36.6 C Pulse Rate 58 L 54 L 63 Respiratory Rate 18 16 Blood Pressure 158/85 H Pulse Oximetry 99 99 Oxygen Delivery Room Air 12/13/24 04:00 12/13/24 04:00 12/13/24 06:00 Temperature Pulse Rate 63 53 L 54 L Respiratory Rate 16 Blood Pressure Pulse Oximetry 99 Oxygen Delivery Room Air 12/13/24 08:00 12/13/24 11:10 12/13/24 12:00 Temperature 36.5 C 36.4 C Pulse Rate 76 71 71 Respiratory Rate 16 16 Blood Pressure 171/81 H 147/68 H 128/67 Pulse Oximetry 98 100 98 Oxygen Delivery Room Air Exam Const: General: comfortable and no acute distress Other: Able to lie flat HENMT: Face/Nose/Sinus: Normal nares present and no epistaxis Mouth: Yes moist mucous membranes Eyes: Sclera: sclerae normal Pupils: Equal, round and reactive pupils present Neck: Neck: supple and no JVD Carotids: no bruits Resp: Auscultation: clear to auscultation bilaterally and lung sounds not diminished Other: No chest wall tenderness Cardio: Rate: regular rate Rhythm: regular rhythm Heart sounds: no gallops, no murmurs and no rubs GI: GI Palp: Yes Soft to palpation and No Tenderness to palpation present (GI) Auscultation: normal bowel sounds Skin: General skin exam: normal color, rashes and/or lesions noted and no erythema Other: Warm Neuro: Cranial nerves: Yes Equal, round and reactive pupils present Speech: normal speech Other: No obvious focal deficit or facial asymmetry Extrem: General: no edema Other: Normal capillary refills Intact distal pulses. Results Labs and Meds 12/13/24 04:27 12/13/24 04:27 Lab results: Cardiac Enzymes 12/12/24 12/12/24 12/12/24 Range/Units 15:36 19:04 21:29 AST 30 (17-59) U/L Troponin I < 0.012 < 0.012 < 0.012 (0.000-0.034) ng/mL 12/13/24 Range/Units 11:27 AST (17-59) U/L Troponin I < 0.012 (0.000-0.034) ng/mL Coagulation 12/12/24 Range/Units 15:36 PT 13.1 (11.1-14.7) Seconds APTT 28.6 (22.3-36.8) Seconds CBC 12/12/24 12/13/24 Range/Units 15:36 04:27 WBC 6.5 6.3 (4.5-10.0) K/mm3 RBC 3.60 L 3.67 L (4.6-6.20) M/mm3 Hgb 11.7 L 11.7 L (14.0-18.0) g/dL Hct 34.9 L 36.2 L (42.0-52.0) % Plt Count 207 194 (150-375) k/mm3 Lymph # (Auto) 1.06 1.14 (0.9-3.2) K/mm3 Hood # (Auto) 0.9 H 0.8 H (0.1-0.6) K/mm3 Eos # (Auto) 0.3 0.4 H (0-0.3) K/mm3 Baso # (Auto) 0.1 0.1 (0.0-0.1) K/mm3 Comprehensive Metabolic Panel 12/12/24 12/13/24 Range/Units 15:36 04:27 Sodium 128 L 129 L (137-145) mmol/L Potassium 4.9 4.6 (3.4-5.0) mmol/L Chloride 95 L 94 L (98-107) mmol/L Carbon Dioxide 26 29 (22-30) mmol/L BUN 13 12 (9-20) mg/dL Creatinine 0.92 0.97 (0.7-1.3) mg/dL Glucose 108 92 (65-110) mg/dL Calcium 9.1 9.0 (8.4-10.2) mg/dL AST 30 (17-59) U/L ALT 24 (6-50) U/L Alkaline Phosphatase 69 (38-126) U/L Total Protein 6.5 (6.3-8.2) g/dL Albumin 4.0 (3.5-5.1) g/dL Intake and Output 12/12/24 12/13/24 12/13/24 23:59 07:59 15:59 Intake Total 250 1172 Output Total 120 3000 Balance -120 -2750 1172 Intake: IV 932 Sodium Chloride 0.9% IV 1,000 932 ml @ 60 mls/hr IV CONT .[id number] [facility] Rx#:[id number] Oral 250 240 Output: Urine 120 Catheter Urine 0 3000 External/Condom 0 3000 Patient Weight 12/13/24 23:59 Weight 77.6 kg
[2024-12-13 14:59] LABS: Troponin I < 0.012 ng/mL (0.000-0.034)
[2024-12-13 18:21] LABS: Troponin I < 0.012 ng/mL (0.000-0.034)
[2024-12-14] VITALS (25 sets, daily range): BP systolic 95–158; BP diastolic 53–74; PULSE 60–87; RESP 12–18; TEMP 36.6–37.1; O2SAT 94–100
--- NOTE | 2024-12-14 | ECHO_ITS ---
Patient Info Name: Fernando Rocha Age: 84 years : 1940 Gender: Male Ht: 70 in Wt: 171 lbs BSA: 1.96 m2 HR: 62 bpm BP: 127 / 67 mmHg Technical Quality: Fair Exam Date: 12/14/2024 10:10 AM Patient Status: I Admit Date: 12/13/2024 Exam Type: CA echo dop color flow w con Complete two-dimensional, color flow and Doppler transthoracic echocardiogram is performed with contrast to opacify the left ventricle and to improve the deliniation of the left ventricle endocardial borders. Staff Referring Physician: Christian Shoemaker Compliance Engineer Products: Alicia Ferrara Attending Provider: Issac Sears MD Contrast/Agitated Saline Contrast/Ag. Saline: Definity Amount: 2.00 ml Existing IV Access: Yes IV Access Condition: patent with no signs of infiltration Summary 1. There is normal biventricular size and systolic function. 2. There are no significant valvular abnormalities. Left Ventricle The left ventricle is normal in size and systolic function. The left ventricular ejection fraction is visually estimated to be 60-65%. There are no regional wall motion abnormalities. Right Ventricle The right ventricle is borderline normal size with borderline normal systolic function. Left Atria The left atrium is normal size. Right Atria The right atrium is normal size. Atrial Septum The atrial septum is not well visualized. Aortic Valve There is no aortic stenosis. There is no aortic regurgitation. Pulmonic Valve The pulmonic valve is not well visualized. Mitral Valve The mitral valve leaflets are sclerotic. There is trace mitral regurgitation. Tricuspid Valve The tricuspid valve is normal. There is trace tricuspid regurgitation. Pericardium/Pleural Pericardium is normal in appearance with no evidence for significant pericardial effusion. Inferior Vena Cava Inferior vena cava is not well visualized. Aorta The visualized portions of the proximal ascending aorta measures 3.7 cm in diameter. Left Ventricular Outflow Tract Name Value Normal LVOT 2D LVOT Diameter 2.0 cm LVOT Doppler LVOT Peak Velocity 68 cm/s LVOT Peak Gradient 2 mmHg LVOT Mean Gradient 1 mmHg LVOT VTI 14 cm LVOT VTI/AV VTI Ratio 0.5 LVOT Stroke Volume 44 ml LVOT CO 10.8 l/min LVOT CI 5.5 l/min/m2 Pulmonic Valve Name Value Normal PV Doppler PV Peak Velocity 95 cm/s PV Peak Gradient 4 mmHg Mitral Valve Name Value Normal MV Diastolic Function MV E Peak Velocity 69 cm/s MV A Peak Velocity 0 cm/s MV E/A 147.0 MV Decel Time (PW) 259 ms MV Annular TDI MV E/e' (Septal) 7.4 MV E/e' (Lateral) 6.2 MV E/e' (Average) 6.8 Tricuspid Valve Name Value Normal TV Regurgitation Doppler TR Peak Velocity 220 cm/s TR Peak Gradient 17 mmHg Estimated PAP/RSVP RA Pressure 10 mmHg <=5 PA Systolic Pressure 29 mmHg <36 RV Systolic Pressure 29 mmHg <36 TV Annular TDI TV Lateral Meghan s' Velocity 8.4 cm/s >=9.5 Aorta Name Value Normal Ascending Aorta Ao Root Diameter (MM) 3.3 cm Ao Root Diam Index (MM) 1.7 cm/m2 Aortic Valve Name Value Normal AV Doppler AV Peak Velocity 137 cm/s AV Peak Gradient 7 mmHg AV Mean Gradient 5 mmHg AV VTI 26 cm AV Area (Cont Eq VTI) 1.7 cm2 >=3.0 AV Area (Cont Eq Albin) 1.5 cm2 AV DI (Albin) 0.49 AV Regurgitation 2D LVOT Area 3.1 cm2 Ventricles Name Value Normal LV Dimensions 2D/MM IVS Diastolic Thickness (2D) 1.2 cm 0.6-1.0 LVID Diastole (2D) 3.7 cm 4.2-5.8 LVIW Diastolic Thickness (2D) 1.1 cm 0.6-1.0 LVID Systole (2D) 2.3 cm 2.5-4.0 LVOT Diameter 2.0 cm LV Mass (2D Cubed) 140.08 g 88.00-224.00 LV Mass Index (2D Cubed) 71 g/m2 49-115 Relative Wall Thickness (2D) 0.57 <=0.42 LV Fractional Shortening/Ejection Fraction 2D/MM LV Fractional Shortening (2D) 39 % 25-43 LV EF (2D Teichholz) 70 % LV Diastolic Volume (4C MOD) 67 ml LV EF (4C MOD) 70 % LV Diastolic Volume (2C MOD) 64 ml LV EF (2C MOD) 53 % LV Diastolic Volume (BP MOD) 67 ml 62-150 LV Diastolic Volume Index (BP MOD) 34 ml/m2 34-74 LV Systolic Volume (BP MOD) 26 ml 21-61 LV Systolic Volume Index (BP MOD) 13 ml/m2 11-31 LV EF (BP MOD) 62 % 52-72 LV Diastolic Length (4C) 7.6 cm LV Systolic Length (4C) 6.2 cm LV Stroke Volume (4C MOD) 47 ml RV Dimensions 2D/MM RVID Diastole (2D) 4.3 cm 2.1-3.5 Atria Name Value Normal LA Dimensions LA Dimension (MM) 3.9 cm 3.0-4.0 LA Volume (4C A-L) 57 ml LA Volume (BP A-L) 59 ml RA Dimensions RA Systolic Major Redford Length (4C) 4.6 cm 2.1-2.7 RA Area (4C) 15.1 cm2 <=18.0 Report Signatures
[2024-12-14] MEDS: CLOPIDOGREL BISULFATE 75 MG TABLET PO (07:35)
[2024-12-14] MEDS: ACETAMINOPHEN 325 MG TABLET 650 MG PO ×2 (07:35→21:10)
[2024-12-14] MEDS: ASPIRIN 81 MG CHEWABLE TABLET PO (07:35)
[2024-12-14] MEDS: ISOSORBIDE MONONITRATE 30 MG TAB.ER.24H PO (07:36)
[2024-12-14] MEDS: ROSUVASTATIN 20 MG TABLET 40 MG PO (07:37)
[2024-12-14] MEDS: PANTOPRAZOLE SOD SESQUIHYDRATE 20 MG TAB PO ×2 (07:38→21:10)
--- NOTE | 2024-12-14 07:42 | ECG_ITS ---
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
[2024-12-14 08:11] LABS: Hematocrit 38.1 % (42.0-52.0); Hemoglobin 12.6 g/dL (14.0-18.0); Mean Corpuscular HGB Conc 33.1 g/dl (32-36); Mean Corpuscular Hemoglobin 32.2 pg (26-34); Mean Corpuscular Volume 97.4 fl (80-100); Platelet Count Result 219 k/mm3 (150-375); Red Blood Count 3.91 M/mm3 (4.6-6.20); White Blood Count 6.3 K/mm3 (4.5-10.0)
[2024-12-14] MEDS: LORazepam (*CRX) 0.5 MG TABLET PO (08:19)
[2024-12-14] MEDS: ENOXAPARIN 40 MG/0.4 ML SYRINGE SUB-Q (08:20)
[2024-12-14 08:21] LABS: Alanine Aminotransferase 23 U/L (6-50); Albumin Level 3.9 g/dL (3.5-5.1); Alkaline Phosphatase 67 U/L (38-126); Anion Gap 6 mmol/L (4-12); Aspartate Amino Transferase 31 U/L (17-59); Bilirubin,Total 0.7 mg/dL (0.2-1.3); Blood Urea Nitrogen 13 mg/dL (9-20); Calcium 9.2 mg/dL (8.4-10.2); Carbon Dioxide 27 mmol/L (22-30); Chloride 97 mmol/L (98-107); Estimated CRCL calculation 49 ml/min; Estimated Glomerular Filt Rate > 60; Glucose 112 mg/dL (65-110); Magnesium 1.8 mg/dL (1.6-2.3); Potassium 4.5 mmol/L (3.4-5.0); Sodium 130 mmol/L (137-145); Total Protein 6.5 g/dL (6.3-8.2); Troponin I < 0.012 ng/mL (0.000-0.034)
[2024-12-14] MEDS: METOPROLOL SUCCINATE EXT REL 100 MG TABCR PO (08:23)
--- NOTE | 2024-12-14 08:34 | P.PNIM_ITS ---
Progress Note: A&P Assessment and Plan (1) Chest pain: Qualifiers: Chest pain type: unspecified Qualified Code(s): R07.9 - Chest pain, unspecified Code(s): R07.9 - Chest pain, unspecified Status: Acute (2) Essential (primary) hypertension: Code(s): I10 - Essential (primary) hypertension Status: Chronic (3) Atrial fibrillation: Code(s): I48.91 - Unspecified atrial fibrillation Status: Acute (4) Seizures: Code(s): R56.9 - Unspecified convulsions Status: Acute Plan This is an 84-year-old male who has a PMH of diverticulosis, history of acute GI bleed, gastritis/peptic ulcer disease, ischemic cardiomyopathy with preserved ejection fraction, atrial fibrillation, CAD status post Megatron stent to 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 His medical history is taken from chart review as he is a poor historian. He does not remember why he is not on a blood thinner for his atrial fibrillation. He reports taking Plavix but not aspirin. He lives at assisted living, reports he was doing nothing around his residence when he had left-sided chest pressure. He had associated dizziness and radiatio n into both arms. He received aspirin and nitroglycerin with EMS and his symptoms resolved. He had no further chest pain. Denies shortness of breath, nausea vomiting, fever, abdominal pain. He feels this is not the same as his usual peptic ulcer disease. Patient is saturating 99% on room air, atrial fibrillation with controlled rate, blood pressure 140/85. EKG demonstrating AFib with slow ventricular response, complete right bundle branch block, poor R-wave progression, no acute ST changes. Overnight he received Lasix 20 mg IV x1. He was started on a daily aspirin. ----- Concerning for cardiac pain. Due to the patient's complex coronary artery disease, will consult Cardiology. He is unable to clearly tell me the timeline of his cardiac events but he says he had 4 stents placed at [facility] in [place] and then later Dr. Montes sent him to [facility] as he had restenoses. The above- mentioned Megatron stent to a high-grade complex ostial stenosis is taken from Dr. Harvey clinic note from 01/2024 however I do not have any further notes to rely on. At this time we will continue aspirin 81 mg p.o. q.day, Plavix 75 mg p.o. q.day, Crestor 40 mg p.o. q.day. Continue telemetry. As mentioned, he is unsure why he is not taking a blood thinner and does not report any bleeding episodes but upon chart review he does have GI bleeds. He cannot confidently tell me whether he wants to take a blood thinner or not, will defer further discussion to Cardiology. [employer] metoprolol due to atrial fibrillation with slow ventricular response. Continue [employer] Protonix Continue [employer] Keppra 1000 mg p.o. b.i.d. Accu-Cheks a.c. HS with low-dose insulin sliding scale Chronic hyponatremia, continue to monitor. Patient wishes to be DNR. Lovenox 40 mg subQ q.day. diabetic, heart healthy t. Intake/output, daily weights. Subjective Date/time seen: 12/14/24 08:34 Interval history: No acute events overnight. Possible discharge tomorrow. Underwent cardiac cath today. Review of Systems Review of Systems: 12 systems were reviewed and are negativ e except for as per HPI. All systems reviewed & are unremarkable except as noted in HPI and below (Subjective) Exam Narrative: General: well appearing, appears stated age. HEENT: normocephalic, atraumatic. Mucous membranes moist. EOMI, PERRLA, bilateral sclera anicteric, no conjunctival injection. Neck supple without JVD, lymphadenopathy, or bruit. Respiratory: clear to ascultation bilaterally. No rales/rhonic/wheezes. Cardiovascular: Regular rate and rhythm, normal S1-S2 upon ascultation. No murmurs, rubs, or clicks. PMI is nondisplaced, capillary refill less than 3 second. Abdomen: Soft, round, no pulsatile masses, nondistended and nontender. No rebound, no guarding. No CVA tenderness, no hepatosplenomegaly. Bowel sounds present to all four quadrants. No high pitch or tinkling sounds, resonant to percussion. Extremities: No cyanosis, clubbing, or edema present. Pulses are palpable 2/2. Active ROM to all four extremities. Neuro: Alert and orientated x 4. PERRLA. Cranial nerves 2-12 intact without f ocal deficit. Skin: Warm, dry, and intact, without rash, erythema, or lesion. Psych: pleasant, cooperative, normal speech, normal affect, no hallucinations, no dysarthia Const: General: comfortable and no acute distress HENMT: Mouth: Yes moist mucous membranes Eyes: Pupils: Equal, round and reactive pupils present Neck: Neck: supple Resp: Effort & Inspection: normal respiratory effort Auscultation: clear to auscultation bilaterally Cardio: Rate: regular rate Rhythm: abnormal rhythm GI: Inspection: non-distended Neuro: Cranial nerves: Yes Equal, round and reactive pupils present Motor exam (neuro): 5/5 motor strength present throughout Extrem: General: no edema Objective Data Vital Signs Vital Signs: Vital Signs - 24 hr 12/13/24 10:00 12/13/24 11:10 12/13/24 12:00 Temperature 97.6 F Pulse Rate 66 71 71 Respiratory Rate 16 Blood Pressure 147/68 H 128/67 Pulse Oximetry 100 98 Oxygen Delivery Room Air Fraction of Inspired Oxygen 12/13/24 12:00 12/13/24 12:00 12/13/24 14:00 Temperature Pulse Rate 70 74 Respiratory Rate Blood Pressure Pulse Oximetry Oxygen Delivery Room Air Fraction of Inspired Oxygen 12/13/24 15:47 12/13/24 16:00 12/13/24 16:00 Temperature 98.2 F Pulse Rate 80 83 Respiratory Rate 20 Blood Pressure 148/66 H Pulse Oximetry 95 Oxygen Delivery Room Air Fraction of Inspired Oxygen 12/13/24 18:00 12/13/24 20:00 12/13/24 20:00 Temperature 98 F Pulse Rate 80 77 Respiratory Rate 20 Blood Pressure 134/67 Pulse Oximetry 95 Oxygen Delivery Room Air Fraction of Inspired Oxygen 12/13/24 20:00 12/13/24 20:29 12/13/24 22:00 Temperature Pulse Rate 75 70 77 Respiratory Rate 20 Blood Pressure Pulse Oximetry 97 Oxygen Delivery Room Air Fraction of Inspired Oxygen 21 12/13/24 23:39 12/14/24 00:00 12/14/24 00:00 Temperature 98.6 F Pulse Rate 76 77 Respiratory Rate 16 Blood Pressure 136/73 Pulse Oximetry 97 Oxygen Delivery Room Air Fraction of Inspired Oxygen 12/14/24 02:00 12/14/24 03:31 12/14/24 04:00 Temperature 98.4 F Pulse Rate 87 75 Respiratory Rate 16 Blood Pressure 127/67 Pulse Oximetry 98 Oxygen Delivery Room Air Fraction of Inspired Oxygen 12/14/24 04:00 12/14/24 06:00 12/14/24 07:44 Temperature 98.7 F Pulse Rate 75 62 78 Respiratory Rate 18 Blood Pressure 158/74 H Pulse Oximetry 96 Oxygen Delivery Fraction of Inspired Oxygen 12/14/24 08:23 Temperature Pulse Rate 76 Respiratory Rate Blood Pressure Pulse Oximetry Oxygen Delivery Fraction of Inspired Oxygen Intake/Output Intake/Output: Intake & Output 12/11/24 12/12/24 12/13/24 12/14/24 23:59 23:59 23:59 23:59 Intake Total 1622 462 Output Total 120 3700 400 [facility] -120 -5967 62 Meds/Results Medications: Active Medications Generic Name Dose Route Start Last Admin Trade Name Freq PRN Reason Stop Dose Admin Acetaminophen 650 mg 12/12/24 16:46 12/14/24 07:35 Acetaminophen 325 Mg Tablet PO 650 mg Q4H PRN Administration Mild Pain (1-3) or Fever Aspirin 81 mg 12/13/24 08:00 12/14/24 07:35 Aspirin 81 Mg Chewable Tablet PO 81 mg DAILY@0800 YOHANA Administration Clopidogrel Bisulfate 75 mg 12/13/24 09:00 12/14/24 07:35 Clopidogrel Bisulfate 75 Mg Tablet PO 75 mg DAILY YOHANA Administration Dextrose 12.5 gm 12/13/24 09:15 Dextrose 50% 25 Gm/50 Ml Syringe IV PUSH PRN PRN Hypoglycemia Protocol Docusate Sodium 100 mg 12/12/24 17:10 Docusate Sodium 100 Mg Capsule PO BID PRN Constipation Enoxaparin Sodium 40 mg 12/13/24 09:00 12/14/24 08:20 Enoxaparin 40 Mg/0.4 Ml Syringe SUB-Q 40 mg DAILY YOHANA Administration Glucose 15 gm 12/13/24 09:15 Glucose Oral Gel 15 Gm Of Glucse In 37.5 Gm Tube PO PRN PRN Hypoglycemia Protocol Dextrose 1,000 mls @ 100 mls/hr 12/13/24 09:15 Dextrose 5% 1,000 Ml IVPB PRN PRN Hypoglycemia Protocol Insulin Aspart 2 - 5 units 12/13/24 12:00 12/14/24 07:34 Insulin Aspart (*Bkc) 100 Units/Ml SUB-Q Not Given TIDWM [facility] Protocol Insulin Aspart 1 - 2 units 12/13/24 21:00 12/13/24 20:08 Insulin Aspart (*Bkc) 100 Units/Ml SUB-Q Not Given HS [facility] Protocol Isosorbide Mononitrate 30 mg 12/14/24 09:00 12/14/24 07:36 Isosorbide Mononitrate 30 Mg Tab.Er.24h PO 30 mg QAM YOHANA Administration Levetiracetam 1,000 mg 12/12/24 21:00 12/14/24 07:38 Levetiracetam 500 Mg Tablet PO 1,000 mg Q12HR YOHANA Administration Metoprolol Succinate 100 mg 12/14/24 09:00 12/14/24 08:23 Metoprolol Succinate Ext Rel 100 Mg Tabcr PO 100 mg QAM YOHANA Administration Nitroglycerin 0.4 mg 12/12/24 16:46 12/13/24 11:16 Nitroglycerin Sl 0.4 Mg Tablet SUBLINGUAL 0.4 mg Q5MIN PRN Administration Chest Pain Pantoprazole Sodium 20 mg 12/12/24 21:00 12/14/24 07:38 Pantoprazole Sod Sesquihydrate 20 Mg Tab PO 20 mg Q12HR YOHANA Administration Perflutren Lipid Microsphere 0 ml 12/12/24 19:48 Perflutren Lipid Microspheres 1.5 Ml Vial Diluted To 10 Ml Total Volume IV PUSH 12/15/24 19:48 ONCE PRN adequate visualization Protocol Rosuvastatin Calcium 40 mg 12/13/24 09:00 12/14/24 07:37 Rosuvastatin 20 Mg Tablet PO 40 mg DAILY YOHANA Administration Zolpidem Tartrate 5 mg 12/12/24 16:51 Zolpidem Tartrate (*Crx) 5 Mg Tablet PO HS PRN Insomnia Radiology Results: ITS Impressions Chest X-Ray 12/12/24 16:43 IMPRESSION: No acute cardiopulmonary process. Labs Labs: Laboratory Results - last 24 hr 12/13/24 12/13/24 12/13/24 11:16 11:27 14:14 WBC RBC Hgb Hct MCV MCH MCHC RDW Plt Count MPV Sodium Potassium Chloride Carbon Dioxide Anion Gap BUN Creatinine Estim Creat Clear Calc Estimated GFR Glucose POC Capillary Glucose 113 H Calcium Magnesium Total Bilirubin AST ALT Alkaline Phosphatase Troponin I < 0.012 < 0.012 Total Protein Albumin 12/13/24 12/13/24 12/13/24 16:01 17:24 20:08 WBC RBC Hgb Hct MCV MCH MCHC RDW Plt Count MPV Sodium Potassium Chloride Carbon Dioxide Anion Gap BUN Creatinine Estim Creat Clear Calc Estimated GFR Glucose POC Capillary Glucose 88 156 H Calcium Magnesium Total Bilirubin AST ALT Alkaline Phosphatase Troponin I < 0.012 Total Protein Albumin 12/14/24 12/14/24 12/14/24 07:13 07:48 07:50 WBC 6.3 RBC 3.91 L Hgb 12.6 L Hct 38.1 L MCV 97.4 MCH 32.2 MCHC 33.1 RDW 14.2 Plt Count 219 MPV 8.5 Sodium 130 L Potassium 4.5 Chloride 97 L Carbon Dioxide 27 Anion Gap 6 BUN 13 Creatinine 1.01 Estim Creat Clear Calc 49 Estimated GFR > 60 Glucose 112 H POC Capillary Glucose 98 Calcium 9.2 Magnesium 1.8 Total Bilirubin 0.7 AST 31 ALT 23 Alkaline Phosphatase 67 Troponin I < 0.012 Total Protein 6.5 Albumin 3.9 Quality VTE Prophylaxis VTE prophylaxis: mechanical ordered and pharmacologic ordered Hospitalist [facility] Advance Care Plan I have confirmed that the patient's Advanced Care Plan is present, code status is documented, or surrogate decision maker is listed in patient medical record.: Yes Medication Reconciliation I have utilized all available resources to obtain, update and review the patients current medications (includes all prescriptions, OTC, herbals, cannabis, and nutritional supplements).: Yes
[2024-12-14] MEDS: PERFLUTREN LIPID MICROSPHERES 1.5 ML VIAL DILUTED TO 10 ML TOTAL VOLUME IV PUSH (10:30)
--- NOTE | 2024-12-14 11:49 | IVDEFINITY ---
Prior to administration of IV Definity the patient was educated on the risks and benefits of the imaging enhancing agent including potential adverse side effects. The patient verbalized understanding. Allergies were verified. No exclusion criteria were identified and at least one of the following inclusion criteria were met: 1) physician request, 2) patient technically difficult to image (per the [place] [employer] guidelines of two or more segments not discernable within the apical view), or 3) questionable left ventricular function. ?
--- NOTE | 2024-12-14 12:21 | P.PNCA_ITS ---
Progress Note: A&P Assessment and Plan (1) Chest pain: Code(s): R07.9 - Chest pain, unspecified Status: Acute (2) Atrial fibrillation: Code(s): I48.91 - Unspecified atrial fibrillation Status: Acute (3) Essential (primary) hypertension: Code(s): I10 - Essential (primary) hypertension Status: Chronic Plan 84-year-old male past medical history of atrial fib, CAD status post stents, hyperlipidemia, hypertension, diabetes and GERD presents the hospital with chest pain Chest pain -he does endorse that previously had negative stress test and a similar type of pain resulting in PCI to RCA and in this setting, a cardiac catheterization was recommended -however given however drowsy the patient is currently, he is unable to consent at this time and we will re-attempt to re-engage the patient later this afternoon -it is also quite possible that his pain improve with the dual antianginal knows that has been started for him and his symptoms of pain starting with his head going down into his body may be a result of the isosorbide mononitrate that had started CAD status post stents -in 08/2021, he had a 5 x 32mm Megatron stent; post dilated with 6.0 x 20mm NC at the ostium of the RCA -he is on aspirin 81 mg p.o. daily and Plavix 75 mg p.o. daily Atrial fibrillation with unknown chronicity -at this time, it is unknown the chronicity and whether or not this is persistent -patient is also too drowsy to discuss if he ever had discussions on risk redu ction with anticoagulation Subjective Date/time seen: 12/14/24 12:21 Interval history: Patient states that he did have chest discomfort this morning however has not been resolved with Tylenol and Ativan. He is quite drowsy however currently without any chest discomfort. We tried to have a conversation regarding his atrial fibrillation however he keeps falling asleep. We tried to discuss the risks, benefits, and alternatives to cardiac catheterization given his presen tation on admission however once again he keeps falling asleep. Review of Systems Cardiovascular: Cardiovascular: Reports as per HPI Respiratory: Respiratory: Reports as per HPI Exam Const: General: comfortable HENMT: Mouth: Yes moist mucous membranes Eyes: EOM: EOMs intact bilaterally Neck: Neck: no JVD Resp: Effort & Inspection: normal respiratory effort Auscultation: clear to auscultation bilaterally Cardio: Rate: regular rate Rhythm: regular rhythm Extrem: General: no pedal edema Objective Data Vital Signs Vital Signs: Vital Signs - 24 hr 12/13/24 14:00 12/13/24 15:47 12/13/24 16:00 Temperature 36.8 C Pulse Rate 74 80 Respiratory Rate 20 Blood Pressure 148/66 H Pulse Oximetry 95 Oxygen Delivery Room Air Fraction of Inspired Oxygen 12/13/24 16:00 12/13/24 18:00 12/13/24 20:00 Temperature 36.6 C Pulse Rate 83 80 77 Respiratory Rate 20 Blood Pressure 134/67 Pulse Oximetry 95 Oxygen Delivery Fraction of Inspired Oxygen 12/13/24 20:00 12/13/24 20:00 12/13/24 20:29 Temperature Pulse Rate 75 70 Respiratory Rate 20 Blood Pressure Pulse Oximetry 97 Oxygen Delivery Room Air Room Air Fraction of Inspired Oxygen 21 12/13/24 22:00 12/13/24 23:39 12/14/24 00:00 Temperature 37.0 C Pulse Rate 77 76 Respiratory Rate 16 Blood Pressure 136/73 Pulse Oximetry 97 Oxygen Delivery Room Air Fraction of Inspired Oxygen 12/14/24 00:00 12/14/24 02:00 12/14/24 03:31 Temperature Pulse Rate 77 87 Respiratory Rate Blood Pressure Pulse Oximetry Oxygen Delivery Room Air Fraction of Inspired Oxygen 12/14/24 04:00 12/14/24 04:00 12/14/24 06:00 Temperature 36.9 C Pulse Rate 75 75 62 Respiratory Rate 16 Blood Pressure 127/67 Pulse Oximetry 98 Oxygen Delivery Fraction of Inspired Oxygen 12/14/24 07:44 12/14/24 08:23 12/14/24 11:29 Temperature 37.1 C 36.7 C Pulse Rate 78 76 62 Respiratory Rate 18 16 Blood Pressure 158/74 H 122/70 Pulse Oximetry 96 96 Oxygen Delivery Fraction of Inspired Oxygen Intake/Output Intake/Output: Intake & Output 12/11/24 12/12/24 12/13/24 12/14/24 23:59 23:59 23:59 23:59 Intake Total 1622 462 Output Total 120 3700 400 Balance -120 -4479 62 Meds/Results Medications: Active Medications Generic Name Dose Route Start Last Admin Trade Name Freq PRN Reason Stop Dose Admin Acetaminophen 650 mg 12/12/24 16:46 08/11/25 07:35 Acetaminophen 325 Mg Tablet PO 650 mg Q4H PRN Administration Mild Pain (1-3) or Fever Aspirin 81 mg 12/13/24 08:00 12/14/24 07:35 Aspirin 81 Mg Chewable Tablet PO 81 mg DAILY@0800 YOHANA Administration Clopidogrel Bisulfate 75 mg 12/13/24 09:00 12/14/24 07:35 Clopidogrel Bisulfate 75 Mg Tablet PO 75 mg DAILY YOHANA Administration Dextrose 12.5 gm 12/13/24 09:15 Dextrose 50% 25 Gm/50 Ml Syringe IV PUSH PRN PRN Hypoglycemia Protocol Docusate Sodium 100 mg 12/12/24 17:10 Docusate Sodium 100 Mg Capsule PO BID PRN Constipation Enoxaparin Sodium 40 mg 12/13/24 09:00 12/14/24 08:20 Enoxaparin 40 Mg/0.4 Ml Syringe SUB-Q 40 mg DAILY YOHANA Administration Glucose 15 gm 12/13/24 09:15 Glucose Oral Gel 15 Gm Of Glucse In 37.5 Gm Tube PO PRN PRN Hypoglycemia Protocol Dextrose 1,000 mls @ 100 mls/hr 12/13/24 09:15 Dextrose 5% 1,000 Ml IVPB PRN PRN Hypoglycemia Protocol Insulin Aspart 2 - 5 units 12/13/24 12:00 12/14/24 11:17 Insulin Aspart (*Bkc) 100 Units/Ml SUB-Q Not Given TIDWM [facility] Protocol Insulin Aspart 1 - 2 units 12/13/24 21:00 12/13/24 20:08 Insulin Aspart (*Bkc) 100 Units/Ml SUB-Q Not Given HS [facility] Protocol Isosorbide Mononitrate 30 mg 12/14/24 09:00 12/14/24 07:36 Isosorbide Mononitrate 30 Mg Tab.Er.24h PO 30 mg QAM YOHANA Administration Levetiracetam 1,000 mg 12/12/24 21:00 12/14/24 07:38 Levetiracetam 500 Mg Tablet PO 1,000 mg Q12HR YOHANA Administration Metoprolol Succinate 100 mg 12/14/24 09:00 12/14/24 08:23 Metoprolol Succinate Ext Rel 100 Mg Tabcr PO 100 mg QAM YOHANA Administration Nitroglycerin 0.4 mg 12/12/24 16:46 12/13/24 11:16 Nitroglycerin Sl 0.4 Mg Tablet SUBLINGUAL 0.4 mg Q5MIN PRN Administration Chest Pain Pantoprazole Sodium 20 mg 12/12/24 21:00 12/14/24 07:38 Pantoprazole Sod Sesquihydrate 20 Mg Tab PO 20 mg Q12HR YOHANA Administration Rosuvastatin Calcium 40 mg 12/13/24 09:00 12/14/24 07:37 Rosuvastatin 20 Mg Tablet PO 40 mg DAILY YOHANA Administration Zolpidem Tartrate 5 mg 12/12/24 16:51 Zolpidem Tartrate (*Crx) 5 Mg Tablet PO HS PRN Insomnia Radiology Results: ITS Impressions Chest X-Ray 12/12/24 16:43 IMPRESSION: No acute cardiopulmonary process. Labs Labs: Laboratory Results - last 24 hr 12/13/24 12/13/24 12/13/24 14:14 16:01 17:24 WBC RBC Hgb Hct MCV MCH MCHC RDW Plt Count MPV Sodium Potassium Chloride Carbon Dioxide Anion Gap BUN Creatinine Estim Creat Clear Calc Estimated GFR Glucose POC Capillary Glucose 88 Calcium Magnesium Total Bilirubin AST ALT Alkaline Phosphatase Troponin I < 0.012 < 0.012 Total Protein Albumin 12/13/24 12/14/24 12/14/24 20:08 07:13 07:48 WBC 6.3 RBC 3.91 L Hgb 12.6 L Hct 38.1 L MCV 97.4 MCH 32.2 MCHC 33.1 RDW 14.2 Plt Count 219 MPV 8.5 Sodium Potassium Chloride Carbon Dioxide Anion Gap BUN Creatinine Estim Creat Clear Calc Estimated GFR Glucose POC Capillary Glucose 156 H 98 Calcium Magnesium Total Bilirubin AST ALT Alkaline Phosphatase Troponin I Total Protein Albumin 12/14/24 12/14/24 07:50 11:04 WBC RBC Hgb Hct MCV MCH MCHC RDW Plt Count MPV Sodium 130 L Potassium 4.5 Chloride 97 L Carbon Dioxide 27 Anion Gap 6 BUN 13 Creatinine 1.01 Estim Creat Clear Calc 49 Estimated GFR > 60 Glucose 112 H POC Capillary Glucose 123 H Calcium 9.2 Magnesium 1.8 Total Bilirubin 0.7 AST 31 ALT 23 Alkaline Phosphatase 67 Troponin I < 0.012 Total Protein 6.5 Albumin 3.9
--- NOTE | 2024-12-14 12:32 | WNDPHOTO ---
PHOTO ONLY - See Nursing Notes and/ or assessments for documentation.
--- NOTE | 2024-12-14 12:36 | WNDPHOTO ---
PHOTO ONLY - See Nursing Notes and/ or assessments for documentation.
--- NOTE | 2024-12-14 13:20 | P.SEDATION_ITS ---
Moderate Sedation Note-Pt Data Patient Data Allergies Allergy/AdvReac Type Severity Reaction Status Date / Time No Known Allergies Allergy Verified 12/13/24 06:20 Home Medications ?Medication ?Instructions ?Recorded ?Confirmed ?Type ascorbic acid (vitamin C) 500 mg 500 mg PO DAILY 09/15/21 12/13/24 History tablet vit C 250 mg-vit E 90 mg-zinc 40 1 tablet PO .q12hr 09/15/21 12/13/24 History mg-copper 1 mg-hqymfo-wtvblj capsule (PreserVision AREDS-2) vitamin B complex (B 1 tablet PO DAILY 09/15/21 12/13/24 History Complex-Vitamin B12 tablet) acetaminophen 500 mg capsule 1,000 mg PO .q12hr 07/03/22 12/12/24 History cholecalciferol (vitamin D3) 125 50 mcg PO DAILY 07/03/22 12/13/24 History mcg (5,000 unit) capsule coenzyme Q10 100 mg capsule 200 mg PO DAILY 07/03/22 12/13/24 History omega 7-rah-ztw-fish oil 1,200 mg 1 cap PO DAILY 07/03/22 12/13/24 History (144 mg-216 mg) capsule (Fish Oil) nuhaahobswnz-qgbhexdr-aczrcc tablet 1 tablet PO DAILY 04/24/23 12/13/24 History ferrous sulfate 325 mg (65 mg 325 mg PO DAILY #90 tabs 11/06/23 12/13/24 Rx iron) tablet clopidogrel 75 mg tablet 75 mg PO DAILY #90 tabs 03/25/24 12/12/24 Rx metoprolol succinate 50 mg 50 mg PO DAILY #100 tabs 03/25/24 12/12/24 Rx tablet,extended release 24 hr rosuvastatin 40 mg tablet 40 mg PO DAILY #90 tabs 03/25/24 12/12/24 Rx levetiracetam 1,000 mg tablet 1,000 mg PO Q12H 05/24/24 12/12/24 History pantoprazole 40 mg tablet,delayed 20 mg PO Q12H 05/24/24 12/12/24 History release (Protonix) polyethylene glycol 3350 17 gram 17 g PO QAM #14 ea 05/27/24 12/13/24 Rx oral powder packet (Miralax) calcium carbonate 1,000 mg PO .tid prn 12/13/24 12/13/24 History escitalopram oxalate 10 mg tablet 10 mg PO HS 12/13/24 12/13/24 History Current Medications: Active Medications Acetaminophen (Acetaminophen 325 Mg Tablet) 650 mg PO Q4H PRN PRN Reason: Mild Pain (1-3) or Fever Last Admin: 12/14/24 07:35 Dose: 650 mg Aspirin (Aspirin 81 Mg Chewable Tablet) 81 mg PO DAILY@0800 [facility] Last Admin: 12/14/24 07:35 Dose: 81 mg Clopidogrel Bisulfate (Clopidogrel Bisulfate 75 Mg Tablet) 75 mg PO DAILY [facility] Last Admin: 12/14/24 07:35 Dose: 75 mg Dextrose (Dextrose 50% 25 Gm/50 Ml Syringe) 12.5 gm IV PUSH PRN PRN; Protocol PRN Reason: Hypoglycemia Docusate Sodium (Docusate Sodium 100 Mg Capsule) 100 mg PO BID PRN PRN Reason: Constipation Enoxaparin Sodium (Enoxaparin 40 Mg/0.4 Ml Syringe) 40 mg SUB-Q DAILY [facility] Last Admin: 12/14/24 08:20 Dose: 40 mg Glucose (Glucose Oral Gel 15 Gm Of Glucse In 37.5 Gm Tube) 15 gm PO PRN PRN; Protocol PRN Reason: Hypoglycemia Dextrose (Dextrose 5% 1,000 Ml) 1,000 mls @ 100 mls/hr IVPB PRN PRN; Protocol PRN Reason: Hypoglycemia Insulin Aspart (Insulin Aspart (*Bkc) 100 Units/Ml) 2 - 5 units SUB-Q TIDWM [facility]; Protocol Last Admin: 12/14/24 11:17 Dose: Not Given Insulin Aspart (Insulin Aspart (*Bkc) 100 Units/Ml) 1 - 2 units SUB-Q [facility]; Protocol Last Admin: 12/13/24 20:08 Dose: Not Given Isosorbide Mononitrate (Isosorbide Mononitrate 30 Mg Tab.Er.24h) [facility] Last Admin: 12/14/24 07:36 Dose: 30 mg Levetiracetam (Levetiracetam 500 Mg Tablet) 1,000 mg PO Q12HR [facility] Last Admin: 12/14/24 07:38 Dose: 1,000 mg Metoprolol Succinate (Metoprolol Succinate Ext Rel 100 Mg Tabcr) 100 mg PO QAM [facility] Last Admin: 12/14/24 08:23 Dose: 100 mg Nitroglycerin (Nitroglycerin Sl 0.4 Mg Tablet) 0.4 mg SUBLINGUAL Q5MIN PRN PRN Reason: Chest Pain Last Admin: 12/13/24 11:16 Dose: 0.4 mg Pantoprazole Sodium (Pantoprazole Sod Sesquihydrate 20 Mg Tab) 20 mg PO Q12HR [facility] Last Admin: 12/14/24 07:38 Dose: 20 mg Rosuvastatin Calcium (Rosuvastatin 20 Mg Tablet) 40 mg PO DAILY [facility] Last Admin: 12/14/24 07:37 Dose: 40 mg Zolpidem Tartrate (Zolpidem Tartrate (*Crx) 5 Mg Tablet) 5 mg PO HS PRN PRN Reason: Insomnia Sedation/Anesthesia: No previous sedation/anesthesia problems (including family history). [facility] Past Medical History Medical History (Updated 12/13/24 @ 12:28 by Samm Pa MD) History of GI diverticular bleed (07/2023) Diverticulitis Chronic GERD Atrial fibrillation Ischemic cardiomyopathy Coronary artery disease Hyperlipidemia Diet-controlled diabetes mellitus Cerebrovascular accident with no reported residual deficits Chronic vascular disorders of intestine Essential (primary) hypertension Cerebral atherosclerosis Epilepsy, unspecified, not intractable, without status epilepticus Generalized anxiety disorder Glaucoma Surgical History Surgical History History of cardiac catheterization 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 Code status: Full code. Smoking packs per day: 1.5 Smoking cigarettes per day: 30.0 Years smoked: 10 Smoking pack-years: 15.00 Smoking status: Former smoker Smokeless tobacco user: chewing tobacco Second hand tobacco smoke exposure: Yes Additional smoking assessment comments: quit chewing tobacco in 2022 Alcohol intake: former Substance use: never Substance use type: does not use Do You Feel Safe in your Home?: Yes Lack of Transportation: No Lack of Food: Never True Current Housing: I Have Housing Concerned About Future Housing: No Difficulty Paying Gas/Electric Bills: No Difficulty Paying for Meds: No Currently Unemployed: No Education: Trade/Vocational Certificate Difficulty w/ Childcare or Family Care: No Living arrangements: with family Additional living arrangements comments: Lives with in [place]. Ambulates with a walker. 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 Spiritual care concerns: No Mod Sed Physical Exam Physical Exam Pre Procedural Exam: Normal: Heart Size and Heart Rate and Variation: Heart Rhythm (irregularly irregular) Hours since solid foods: 8 Hours since liquid intake: 8 Mallampati Classification: class II Internal Medicine - PN: Obj Da Vital Signs Vital Signs: Vital Signs - 24 hr 12/13/24 14:00 12/13/24 15:47 12/13/24 16:00 Temperature 36.8 C Pulse Rate 74 80 Respiratory Rate 20 Blood Pressure 148/66 H Pulse Oximetry 95 Oxygen Delivery Room Air Fraction of Inspired Oxygen 12/13/24 16:00 12/13/24 18:00 12/13/24 20:00 Temperature 36.6 C Pulse Rate 83 80 77 Respiratory Rate 20 Blood Pressure 134/67 Pulse Oximetry 95 Oxygen Delivery Fraction of Inspired Oxygen 12/13/24 20:00 12/13/24 20:00 12/13/24 20:29 Temperature Pulse Rate 75 70 Respiratory Rate 20 Blood Pressure Pulse Oximetry 97 Oxygen Delivery Room Air Room Air Fraction of Inspired Oxygen 21 12/13/24 22:00 12/13/24 23:39 12/14/24 00:00 Temperature 37.0 C Pulse Rate 77 76 Respiratory Rate 16 Blood Pressure 136/73 Pulse Oximetry 97 Oxygen Delivery Room Air Fraction of Inspired Oxygen 12/14/24 00:00 12/14/24 02:00 12/14/24 03:31 Temperature Pulse Rate 77 87 Respiratory Rate Blood Pressure Pulse Oximetry Oxygen Delivery Room Air Fraction of Inspired Oxygen 12/14/24 04:00 12/14/24 04:00 12/14/24 06:00 Temperature 36.9 C Pulse Rate 75 75 62 Respiratory Rate 16 Blood Pressure 127/67 Pulse Oximetry 98 Oxygen Delivery Fraction of Inspired Oxygen 12/14/24 07:44 12/14/24 08:00 12/14/24 08:23 Temperature 37.1 C Pulse Rate 78 81 76 Respiratory Rate 18 Blood Pressure 158/74 H Pulse Oximetry 96 Oxygen Delivery Fraction of Inspired Oxygen 12/14/24 10:00 12/14/24 11:29 12/14/24 12:00 Temperature 36.7 C Pulse Rate 70 62 60 Respiratory Rate 16 Blood Pressure 122/70 Pulse Oximetry 96 Oxygen Delivery Fraction of Inspired Oxygen Intake/Output Intake/Output: Intake & Output 12/11/24 12/12/24 12/13/24 12/14/24 23:59 23:59 23:59 23:59 Intake Total 1622 462 Output Total 120 3700 400 Balance -120 -0147 62 Meds/Results Medications: Active Medications Generic Name Dose Route Start Last Admin Trade Name Freq PRN Reason Stop Dose Admin Acetaminophen 650 mg 12/12/24 16:46 12/14/24 07:35 Acetaminophen 325 Mg Tablet PO 650 mg Q4H PRN Administration Mild Pain (1-3) or Fever Aspirin 81 mg 12/13/24 08:00 12/14/24 07:35 Aspirin 81 Mg Chewable Tablet PO 81 mg DAILY@0800 YOHANA Administration Clopidogrel Bisulfate 75 mg 12/13/24 09:00 12/14/24 07:35 Clopidogrel Bisulfate 75 Mg Tablet PO 75 mg DAILY YOHANA Administration Dextrose 12.5 gm 12/13/24 09:15 Dextrose 50% 25 Gm/50 Ml Syringe IV PUSH PRN PRN Hypoglycemia Protocol Docusate Sodium 100 mg 12/12/24 17:10 Docusate Sodium 100 Mg Capsule PO BID PRN Constipation Enoxaparin Sodium 40 mg 12/13/24 09:00 12/14/24 08:20 Enoxaparin 40 Mg/0.4 Ml Syringe SUB-Q 40 mg DAILY YOHANA Administration Glucose 15 gm 12/13/24 09:15 Glucose Oral Gel 15 Gm Of Glucse In 37.5 Gm Tube PO PRN PRN Hypoglycemia Protocol Dextrose 1,000 mls @ 100 mls/hr 12/13/24 09:15 Dextrose 5% 1,000 Ml IVPB PRN PRN Hypoglycemia Protocol Insulin Aspart 2 - 5 units 12/13/24 12:00 12/14/24 11:17 Insulin Aspart (*Bkc) 100 Units/Ml SUB-Q Not Given TIDWM [facility] Protocol Insulin Aspart 1 - 2 units 12/13/24 21:00 12/13/24 20:08 Insulin Aspart (*Bkc) 100 Units/Ml SUB-Q Not Given HS [facility] Protocol Isosorbide Mononitrate 30 mg 12/14/24 09:00 12/14/24 07:36 Isosorbide Mononitrate 30 Mg Tab.Er.24h PO 30 mg QAM YOHANA Administration Levetiracetam 1,000 mg 12/12/24 21:00 12/14/24 07:38 Levetiracetam 500 Mg Tablet PO 1,000 mg Q12HR YOH[facility] Administration Metoprolol Succinate 100 mg 12/14/24 09:00 12/14/24 08:23 Metoprolol Succinate Ext Rel 100 Mg Tabcr PO 100 mg QAM [facility]OH[facility] Administration Nitroglycerin 0.4 mg 12/12/24 16:46 12/13/24 11:16 Nitroglycerin Sl 0.4 Mg Tablet SUBLINGUAL 0.4 mg Q5MIN PRN Administration Chest Pain Pantoprazole Sodium 20 mg 12/12/24 21:00 12/14/24 07:38 Pantoprazole Sod Sesquihydrate 20 Mg Tab PO 20 mg Q12HR YOH[facility] Administration Rosuvastatin Calcium 40 mg 12/13/24 09:00 12/14/24 07:37 Rosuvastatin 20 Mg Tablet PO 40 mg DAILY YOH[facility] Administration Zolpidem Tartrate 5 mg 12/12/24 16:51 Zolpidem Tartrate (*Crx) 5 Mg Tablet PO HS PRN Insomnia Radiology Results: ITS Impressions Chest X-Ray 12/12/24 16:43 IMPRESSION: No acute cardiopulmonary process. Labs 12/14/24 07:48 12/14/24 07:50 Labs: Laboratory Results - last 24 hr 12/13/24 12/13/24 12/13/24 14:14 16:01 17:24 WBC RBC Hgb Hct MCV MCH MCHC RDW Plt Count MPV Sodium Potassium Chloride Carbon Dioxide Anion Gap BUN Creatinine Estim Creat Clear Calc Estimated GFR Glucose POC Capillary Glucose 88 Calcium Magnesium Total Bilirubin AST ALT Alkaline Phosphatase Troponin I < 0.012 < 0.012 Total Protein Albumin 12/13/24 12/14/24 12/14/24 20:08 07:13 07:48 WBC 6.3 RBC 3.91 L Hgb 12.6 L Hct 38.1 L MCV 97.4 MCH 32.2 MCHC 33.1 RDW 14.2 Plt Count 219 MPV 8.5 Sodium Potassium Chloride Carbon Dioxide Anion Gap BUN Creatinine Estim Creat Clear Calc Estimated GFR Glucose POC Capillary Glucose 156 H 98 Calcium Magnesium Total Bilirubin AST ALT Alkaline Phosphatase Troponin I Total Protein Albumin 12/14/24 12/14/24 07:50 11:04 WBC RBC Hgb Hct MCV MCH MCHC RDW Plt Count MPV Sodium 130 L Potassium 4.5 Chloride 97 L Carbon Dioxide 27 Anion Gap 6 BUN 13 Creatinine 1.01 Estim Creat Clear Calc 49 Estimated GFR > 60 Glucose 112 H POC Capillary Glucose 123 H Calcium 9.2 Magnesium 1.8 Total Bilirubin 0.7 AST 31 ALT 23 Alkaline Phosphatase 67 Troponin I < 0.012 Total Protein 6.5 Albumin 3.9 ASA Classification/Sedation ASA Classification/Sedation ASA Class: III Emergent: No Risks: Risks, benefits and alternatives explained and patient/family accepted plan for sedation. Patient re-evaluated immediately prior to sedation.
--- NOTE | 2024-12-14 13:20 | WPDHPUPDATE1 ---
History and Physical Update Update Date/Time: 12/14/24 13:20 History and Physical has been reviewed, including an updated exam of the patient. There are NO changes in the patient's condition. Risks, benefits, and alternatives have been discussed and questions answered. Patient agrees to proceed with procedure.
--- NOTE | 2024-12-14 15:21 | P.PCNCC_ITS ---
Cardiac Cath Procedure Note Date of procedure:: 12/14/24 Performing physician:: CATHETERIZATION LABORATORY REPORT Procedure Date: 12/14/2024 Referring Physician: Dr. Pa Anesthesia: Versed and Fentanyl were ordered and given in my presence at 1405, procedure ended at 1434. Supervision of nurse, Arnaldo Reyes monitored moderate sedation with 25mcg Fentanyl was provided for 29 minutes. Pre-op Diagnosis: Unstable angina Post-op Diagnosis: Coronary artery disease Procedure(s): Left heart catheterization with coronary angiography Access Site: Right radial artery Brief History and Clinical Indications: All risks, benefits and alternatives to left heart catheterization with or without percutaneous coronary intervention was discussed at length with the patient. Risk of complications including but not limited to bleeding, infection, arrhythmia, stroke, worsening kidney function, blood loss, groin hematoma, limb loss, emergency coronary artery bypass grafting, and even were discussed with the patient and all questions were answered. The patient understood and wished to proceed. 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 Findings: LEFT HEART CATHETERIZATION FINDINGS: 1. Left main: The left main coronary artery has 10% stenosis in its proximal body. 2. Left anterior descending: The LAD has a stent with 20-30% in-stent restenoses. The 1 major diagonal branch has several focal areas of 50% stenosis. The remainder of the LAD has diffuse 10% stenosis. 3. Left circumflex: The left circumflex artery and the main marginal branches have diffuse calcific 20-30% stenosis. 4. Ramus Intermedius: Calcified 20-30% stenosis. 5. Right coronary artery: The RCA is a large dominant vessel with a stent from the proximal body extending slightly into the aortic root. There is 50-60% in- stent restenosis at the ostium. 6. Left ventricle: A. End-diastolic pressure 5 mmHg. B. LV gram deferred. C. No significant gradient across aortic valve on catheter pullback. 7. Right iliofemoral angiogram: There is a heavily calcified 20% stenosis in the right common femoral artery. The remainder of the visualized portions of the profunda, superficial femoral artery, and external iliac artery has diffuse 10-20% stenosis. 8. Opening AO pressure 117/72 and closing AO pressure 102/48 Description of Procedure: Informed consent signed and placed in the chart. Patient transferred to carpenter/labor room. Prepped and draped in usual sterile fashion. 2% lidocaine in right groin area. Micropuncture needle used to access right common femoral artery with Seldinger technique under fluoroscopic guidance. J wire advanced, micropuncture cannula placed and exchanged for a 6F sheath. JL3.5 diagnostic catheter engaged Left Main Coronary Artery. JR4 diagnostic catheter engaged Right Coronary Artery. Multiple orthogonal angiogram obtained and reviewed 5F Pigtail catheter crossed aortic valve to obtain LVEDP, LV angiogram deferred. Hemostasis was achieved by manual pressure given degree of calcium in the vessel. 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 Continue aggressive medical therapy and risk factor modification. We had already discussed anticoagulation for his atrial fibrillation to lower stroke risk which can be started tomorrow if groin site is stable. Scott Ramirez Interventional Cardiology
[2024-12-14] MEDS: SODIUM CHLORIDE 0.9% IV 1,000 ML 125 ML IV CONT (16:00)
[2024-12-14] MEDS: ZOLPIDEM TARTRATE (*CRX) 5 MG TABLET PO (21:10)
[2024-12-15] VITALS (8 sets, daily range): BP systolic 128–154; BP diastolic 81; PULSE 56–80; RESP 17–18; TEMP 36.4–36.6; O2SAT 98–100
[2024-12-15 04:32] LABS: Hematocrit 32.8 % (42.0-52.0); Hemoglobin 11.0 g/dL (14.0-18.0); Mean Corpuscular HGB Conc 33.5 g/dl (32-36); Mean Corpuscular Hemoglobin 32.4 pg (26-34); Mean Corpuscular Volume 96.8 fl (80-100); Platelet Count Result 184 k/mm3 (150-375); Red Blood Count 3.39 M/mm3 (4.6-6.20); White Blood Count 6.0 K/mm3 (4.5-10.0)
[2024-12-15 04:57] LABS: Alanine Aminotransferase 18 U/L (6-50); Albumin Level 3.4 g/dL (3.5-5.1); Alkaline Phosphatase 63 U/L (38-126); Anion Gap 6 mmol/L (4-12); Aspartate Amino Transferase 24 U/L (17-59); Bilirubin,Total 0.6 mg/dL (0.2-1.3); Blood Urea Nitrogen 16 mg/dL (9-20); Calcium 8.6 mg/dL (8.4-10.2); Carbon Dioxide 24 mmol/L (22-30); Chloride 99 mmol/L (98-107); Estimated CRCL calculation 49 ml/min; Estimated Glomerular Filt Rate > 60; Glucose 90 mg/dL (65-110); Potassium 4.3 mmol/L (3.4-5.0); Sodium 129 mmol/L (137-145); Total Protein 5.7 g/dL (6.3-8.2)
--- NOTE | 2024-12-15 07:56 | PM.DS ---
DS: Admitting Diagnosis Discharge Date 12/15/2024 Admitting Diagnosis Chest pain DS: Discharge Diagnosis Discharge Diagnosis (1) Chest pain: Qualifiers: Chest pain type: unspecified Qualified Code(s): R07.9 - Chest pain, unspecified Code(s): R07.9 - Chest pain, unspecified Status: Acute (2) Essential (primary) hypertension: Code(s): I10 - Essential (primary) hypertension Status: Chronic (3) Atrial fibrillation: Code(s): I48.91 - Unspecified atrial fibrillation Status: Acute (4) Seizures: Code(s): R56.9 - Unspecified convulsions Status: Acute DS: Summary Hospital Course Hospital Course: This is an 84-year-old male who has a PMH of diverticulosis, history of acute GI bleed, gastritis/peptic ulcer disease, ischemic cardiomyopathy with preserved ejection fraction, atrial fibrillation, CAD status post Megatron stent to 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 His medical history is taken from chart review as he is a poor historian. He does not remember why he is not on a blood thinner for his atrial fibrillation. He reports taking Plavix but not aspirin. He lives at assisted living, reports he was doing nothing around his residence when he had left-sided chest pressure. He had associated dizziness and radiation into both arms. He received aspirin and nitroglycerin with EMS and his symptoms resolved. He had no further chest pain. Denies shortness of breath, nausea vomiting, fever, abdominal pain. He feels this is not the same as his usual peptic ulcer disease. Patient is saturating 99% on room air, atrial fibrillation with controlled rate, blood pressure 140/85. EKG demonstrating AFib with slow ventricular response, complete right bundle branch block, poor R-wave progression, no acute ST changes. Overnight he received Lasix 20 mg IV x1. He was started on a daily aspirin. ----- Concerning for cardiac pain. Due to the patient's complex coronary artery disease, will consult Cardiology. He is unable to clearly tell me the timeline of his cardiac events but he says he had 4 stents placed at [facility] in [place] and then later Dr. Montes sent him to [facility] as he had restenoses. The above-mentioned Megatron stent to a high-grade complex ostial stenosis is taken from Dr. Harvey clinic note from 01/2024 however I do not have any further notes to rely on. At this time we will continue aspirin 81 mg p.o. q.day, Plavix 75 mg p.o. q.day, Crestor 40 mg p.o. q.day. Continue telemetry. As mentioned, he is unsure why he is not taking a blood thinner and does not report any bleeding episodes but upon chart review he does have GI bleeds. He cannot confidently tell me whether he wants to take a blood thinner or not, will defer further discussion to Cardiology. Holding [employer] metoprolol due to atrial fibrillation with slow ventricular response. Continue [employer] Protonix Continue [employer] Keppra 1000 mg p.o. b.i.d. Accu-Cheks a.c. HS with low-dose insulin sliding scale Chronic hyponatremia, continue to monitor. 12/15: Patient underwent cardiac catheterization on 12/14 no significant finding other than 50-60% in-stent restenosis at the ostium RCA. As per Cardiology continue aggressive medical therapy and risk factor modification. In regards to atrial fibrillation cardiology agrees to start anticoagulant if groin site is stable. Patient will be started on Eliquis 5 mg p.o. b.i.d. after discussing with Cardiology and will follow up with Cardiology and PCP within a week upon discharge. Of note patient is already on aspirin and Plavix. Discussed with Cardiology advised to start Eliquis and continue Plavix but discontinue aspirin. Advised the patient in the event of fall seek immediate medical attention On the day of discharge, the patient was seen and examined. Vital signs were stable. Physical exam were stable and labs were reviewed at length. Discharge instructions, medications, and follow-up appointments were discussed with the patient at length and all day questions were answered. ER warnings were given. Status at Discharge Cognitive/behavioral status at discharge: Stable Time Spent with Patient Time attestation: Total time spent providing and/or coordinating discharge services: 45 minute Exam Narrative: General: well appearing, appears stated age. HEENT: normocephalic, atraumatic. Mucous membranes moist. EOMI, PERRLA, bilateral sclera anicteric, no conjunctival injection. Neck supple without JVD, lymphadenopathy, or bruit. Respiratory: clear to ascultation bilaterally. No rales/rhonic/wheezes. Cardiovascular: Regular rate and rhythm, normal S1-S2 upon ascultation. No murmurs, rubs, or clicks. PMI is nondisplaced, capillary refill less than 3 second. Abdomen: Soft, round, no pulsatile masses, nondistended and nontender. No rebound, no guarding. No CVA tenderness, no hepatosplenomegaly. Bowel sounds present to all four quadrants. No high pitch or tinkling sounds, resonant to percussion. Extremities: No cyanosis, clubbing, or edema present. Pulses are palpable 2/2. Active ROM to all four extremities. Neuro: Alert and orientated x 4. PERRLA. Cranial nerves 2-12 intact without focal deficit. Skin: Warm, dry, and intact, without rash, erythema, or lesion. Psych: pleasant, cooperative, normal speech, normal affect, no hallucinations, no dysarthia Const: General: comfortable and no acute distress HENMT: Mouth: Yes moist mucous membranes Eyes: Pupils: Equal, round and reactive pupils present Neck: Neck: supple Resp: Effort & Inspection: normal respiratory effort Auscultation: clear to auscultation bilaterally Cardio: Rate: regular rate Rhythm: abnormal rhythm GI: Inspection: non-distended Neuro: Cranial nerves: Yes Equal, round and reactive pupils present Motor exam (neuro): 5/5 motor strength present throughout Extrem: General: no edema DS: Data Data Completed and Pending Labs on day of discharge: Labs from last 24 hours 12/15/24 12/15/24 12/14/24 07:40 04:01 20:07 WBC 6.0 RBC 3.39 L Hgb 11.0 L Hct 32.8 L MCV 96.8 MCH 32.4 MCHC 33.5 RDW 14.2 Plt Count 184 MPV 8.4 Sodium 129 L Potassium 4.3 Chloride 99 Carbon Dioxide 24 Anion Gap 6 BUN 16 Creatinine 1.01 Estim Creat Clear Calc 49 Estimated GFR > 60 Glucose 90 POC Capillary Glucose 94 131 H Calcium 8.6 Magnesium Total Bilirubin 0.6 AST 24 ALT 18 Alkaline Phosphatase 63 Troponin I Total Protein 5.7 L Albumin 3.4 L 12/14/24 12/14/24 12/14/24 16:11 11:04 07:50 WBC RBC Hgb Hct MCV MCH MCHC RDW Plt Count MPV Sodium 130 L Potassium 4.5 Chloride 97 L Carbon Dioxide 27 Anion Gap 6 BUN 13 Creatinine 1.01 Estim Creat Clear Calc 49 Estimated GFR > 60 Glucose 112 H POC Capillary Glucose 102 123 H Calcium 9.2 Magnesium 1.8 Total Bilirubin 0.7 AST 31 ALT 23 Alkaline Phosphatase 67 Troponin I < 0.012 Total Protein 6.5 Albumin 3.9 12/14/24 07:48 WBC 6.3 RBC 3.91 L Hgb 12.6 L Hct 38.1 L MCV 97.4 MCH 32.2 MCHC 33.1 RDW 14.2 Plt Count 219 MPV 8.5 Sodium Potassium Chloride Carbon Dioxide Anion Gap BUN Creatinine Estim Creat Clear Calc Estimated GFR Glucose POC Capillary Glucose Calcium Magnesium Total Bilirubin AST ALT Alkaline Phosphatase Troponin I Total Protein Albumin Imaging Radiologist's impression: ITS Impressions Chest X-Ray 12/12/24 16:43 IMPRESSION: No acute cardiopulmonary process. Discharge Plan Discharge Attending physician on discharge: Bill Church Consulting providers: Samm Pa Discharging Clinician: Bill Church Anticipated Discharge Date/Time: 12/15/24 08:39 Patient Disposition: Home Activity: as tolerated Diet: heart healthy Discharge Instructions: As per cardiology advise, patient will be started on Eliquis and will be continuing Plavix. Patient aspirin has been discontinued. Order CBC,please follow up the results with PCP In the event of fall please seek immediate medical attention. Check blood pressure 1 to 2 times a day. Record and bring into your doctor for review. Call your doctor if your blood pressure is greater than 180/110 or less than 90/45. Walk with cane or other assist device. Take precautions to avoid falls. Rise slowly from a lying or sitting position. Pause before standing or walking. Contact your doctor or call 911 and come to the Emergency Room if you have any type of trauma, lightheadedness with standing or other worrisome symptoms. Avoid NSAIDs (ibuprofen, naproxen, Aleve). Tylenol is safe to take. Follow-up with your primary care provider in 1-2 weeks. Please call for appointment. Follow-up with Cardiology in 2-4 weeks. Please call for an appointment. Thank you for using [facility] for your health care needs. Patient Instructions: Antibiotic Form, Isosorbide Mononitrate (By mouth), Apixaban (By mouth), Anxiety (GEN), Heart Catheterization (GEN), Left Heart Catheterization (GEN) Patient Language: Citizen Of [place] Stand Alone Forms: General Discharge Information Follow-up/Referrals: Samm Pa MD [Physician] - Daren Colvin MD [Primary Care Provider] - Discharge Medications: New isosorbide mononitrate 30 mg Tablet Extended Release 24 Hr 30 mg PO QAM Qty: 15 0RF Eliquis 5 mg tablet 5 mg PO BID Qty: 60 0RF Continued clopidogrel 75 mg tablet 75 mg PO DAILY Qty: 90 1RF metoprolol succinate 50 mg tablet extended release 24 hr 50 mg PO DAILY Qty: 100 1RF rosuvastatin 40 mg tablet 40 mg PO DAILY Qty: 90 1RF coenzyme Q10 100 mg capsule 200 mg PO DAILY cholecalciferol (vitamin D3) 125 mcg (5,000 unit) capsule 50 mcg PO DAILY acetaminophen 500 mg capsule 1,000 mg PO .q12hr omega [id number]-fish oil [Fish Oil] 1,200 (144-216) mg capsule 1 cap PO DAILY ferrous sulfate 325 mg (65 mg iron) tablet 325 mg PO DAILY Qty: 90 0RF ascorbic acid (vitamin C) 500 mg Tablet 500 mg PO DAILY vitamin B complex [B Complex-Vitamin B12] Tablet 1 tablet PO DAILY PreserVision AREDS-2 250-90-40-1 mg Capsule 1 tablet PO .q12hr [id number]-ospapm Tablet 1 tablet PO DAILY pantoprazole [Protonix] 40 mg tablet,delayed release (DR/EC) 20 mg PO Q12H levetiracetam 1,000 mg tablet 1,000 mg PO Q12H polyethylene glycol 3350 [Miralax] 17 gram Powder In Packet 17 g PO QAM Qty: 14 0RF escitalopram oxalate 10 mg tablet 10 mg PO HS calcium carbonate 500 mg calcium (1,250 mg) tablet,chewable 1,000 mg PO .tid prn Other Ambulatory Orders: Complete Blood Count with Diff (Routine) Timeframe: 1 Week Location: Determined by Patient Ordered By: Bill Church Date of admission: 12/13/24 09:11 Primary Care Provider: Daren Colvin Admitting Provider: Issac Sears Attending physician on admission: Issac Sears Condition: Stable
[2024-12-15] MEDS: ENOXAPARIN 40 MG/0.4 ML SYRINGE SUB-Q (08:55)
[2024-12-15] MEDS: ASPIRIN 81 MG CHEWABLE TABLET PO (08:56)
[2024-12-15] MEDS: PANTOPRAZOLE SOD SESQUIHYDRATE 20 MG TAB PO (08:56)
[2024-12-15] MEDS: ISOSORBIDE MONONITRATE 30 MG TAB.ER.24H PO (08:56)
[2024-12-15] MEDS: METOPROLOL SUCCINATE EXT REL 100 MG TABCR PO (08:56)
[2024-12-15] MEDS: ROSUVASTATIN 20 MG TABLET 40 MG PO (08:56)
[2024-12-15] MEDS: CLOPIDOGREL BISULFATE 75 MG TABLET PO (08:56)
--- NOTE | 2024-12-15 12:20 | P.PNCA_ITS ---
Progress Note: A&P Assessment and Plan (1) Chest pain: Code(s): R07.9 - Chest pain, unspecified Status: Acute (2) Atherosclerotic heart disease of [place] coronary artery with unspecified angina pectoris: Qualifiers: [place] vs. transplanted heart: [place] heart Qualified Code(s): I25.119 - Atherosclerotic heart disease of [place] coronary artery with unspecified angina pectoris Code(s): I25.119 - Atherosclerotic heart disease of [place] coronary artery with unspecified angina pectoris Status: Acute (3) Atrial fibrillation: Code(s): I48.91 - Unspecified atrial fibrillation Status: Acute Plan 84-year-old male past medical history of atrial fib, CAD status post stents, hyperlipidemia, hypertension, diabetes and GERD presents the hospital with chest pain Chest pain -no acute plaque rupture angiography to explain his symptoms -continue current antianginal medications at current dose CAD status post stents -in 08/2021, he had a 5 x 32mm Megatron stent; post dilated with 6.0 x 20mm NC at the ostium of the RCA -continue Plavix 75 mg p.o. daily and statin Atrial fibrillation with unknown chronicity -at this time, it is unknown the chronicity and whether or not this is persistent -we have discussed the risk and benefits of anticoagulation and at this time he agreed to discontinue aspirin and to start Eliquis 5 mg p.o. b.i.d. No further inpatient workup warranted at this time. Patient follow-up with Dr. Montes in 2-4 weeks Subjective Date/time seen: 12/15/24 12:20 Interval history: Patient without any chest pain today. Review of Systems Cardiovascular: Cardiovascular: Reports as per HPI Respiratory: Respiratory: Reports as per HPI Exam Const: General: comfortable HENMT: Mouth: Yes moist mucous membranes Eyes: EOM: EOMs intact bilaterally Neck: Neck: no JVD Resp: Effort & Inspection: normal respiratory effort Auscultation: clear to auscultation bilaterally Cardio: Rate: regular rate Rhythm: abnormal rhythm GI: GI Palp: Yes Soft to palpation Extrem: Other: Right groin access site without any hematoma or bleeding. Dressing removed for full inspection. Objective Data Vital Signs Vital Signs: Vital Signs - 24 hr 12/14/24 14:00 12/14/24 15:00 12/14/24 15:00 Temperature Pulse Rate 74 64 Pulse Rate [Bilateral Pedal (Dorsalis Pedis) Palpation] 64 Respiratory Rate 15 Blood Pressure 110/68 Pulse Oximetry 94 Oxygen Delivery Room Air 12/14/24 15:15 12/14/24 15:15 12/14/24 15:30 Temperature Pulse Rate 64 69 Pulse Rate [Bilateral Pedal (Dorsalis Pedis) Palpation] 64 Respiratory Rate 12 14 Blood Pressure 114/68 108/64 Pulse Oximetry 98 97 Oxygen Delivery Room Air Room Air 12/14/24 15:30 12/14/24 15:45 12/14/24 15:45 Temperature Pulse Rate 62 Pulse Rate [Bilateral Pedal (Dorsalis Pedis) Palpation] 69 62 Respiratory Rate 16 Blood Pressure 95/67 L Pulse Oximetry 98 Oxygen Delivery Room Air 12/14/24 16:00 12/14/24 16:15 12/14/24 16:45 Temperature 36.6 C 36.9 C Pulse Rate 69 67 60 Pulse Rate [Bilateral Pedal (Dorsalis Pedis) Palpation] Respiratory Rate 16 16 Blood Pressure 108/61 106/54 L Pulse Oximetry 98 96 Oxygen Delivery 12/14/24 17:45 12/14/24 18:00 12/14/24 18:45 Temperature 36.7 C 36.8 C Pulse Rate 69 65 61 Pulse Rate [Bilateral Pedal (Dorsalis Pedis) Palpation] Respiratory Rate 16 16 Blood Pressure 113/63 97/54 L Pulse Oximetry 98 97 Oxygen Delivery 12/14/24 19:18 12/14/24 20:00 12/14/24 20:00 Temperature 36.6 C Pulse Rate 67 65 Pulse Rate [Bilateral Pedal (Dorsalis Pedis) Palpation] Respiratory Rate 17 Blood Pressure 100/71 Pulse Oximetry 96 Oxygen Delivery Room Air 12/14/24 22:00 12/14/24 23:53 12/15/24 00:00 Temperature 36.8 C Pulse Rate 61 71 Pulse Rate [Bilateral Pedal (Dorsalis Pedis) Palpation] Respiratory Rate 17 Blood Pressure 109/53 L Pulse Oximetry 100 Oxygen Delivery Room Air 12/15/24 00:00 12/15/24 02:00 12/15/24 03:38 Temperature 36.6 C Pulse Rate 63 56 L 80 Pulse Rate [Bilateral Pedal (Dorsalis Pedis) Palpation] Respiratory Rate 17 Blood Pressure 128/81 Pulse Oximetry 100 Oxygen Delivery 12/15/24 04:00 12/15/24 04:00 12/15/24 06:00 Temperature Pulse Rate 70 61 Pulse Rate [Bilateral Pedal (Dorsalis Pedis) Palpation] Respiratory Rate Blood Pressure Pulse Oximetry Oxygen Delivery Room Air 12/15/24 08:00 12/15/24 08:00 12/15/24 08:56 Temperature 36.4 C L Pulse Rate 72 71 68 Pulse Rate [Bilateral Pedal (Dorsalis Pedis) Palpation] Respiratory Rate 18 Blood Pressure 154/81 H Pulse Oximetry 98 Oxygen Delivery 12/15/24 10:00 12/15/24 10:48 Temperature Pulse Rate 64 Pulse Rate [Bilateral Pedal (Dorsalis Pedis) Palpation] Respiratory Rate Blood Pressure Pulse Oximetry Oxygen Delivery Room Air Intake/Output Intake/Output: Intake & Output 12/12/24 12/13/24 12/14/24 12/15/24 23:59 23:59 23:59 23:59 Intake Total 1622 762 360 Output Total 120 3700 850 275 Balance -120 -2078 -88 85 Meds/Results Medications: Active Medications Generic Name Dose Route Start Last Admin Trade Name Freq PRN Reason Stop Dose Admin Acetaminophen 650 mg 12/12/24 16:46 12/14/24 21:10 Acetaminophen 325 Mg Tablet PO 650 mg Q4H PRN Administration Mild Pain (1-3) or Fever Aspirin 81 mg 12/13/24 08:00 12/15/24 08:56 Aspirin 81 Mg Chewable Tablet PO 81 mg DAILY@0800 YOHANA Administration Clopidogrel Bisulfate 75 mg 12/13/24 09:00 12/15/24 08:56 Clopidogrel Bisulfate 75 Mg Tablet PO 75 mg DAILY YOHANA Administration Dextrose 12.5 gm 12/13/24 09:15 Dextrose 50% 25 Gm/50 Ml Syringe IV PUSH PRN PRN Hypoglycemia Protocol Docusate Sodium 100 mg 12/12/24 17:10 Docusate Sodium 100 Mg Capsule PO BID PRN Constipation Enoxaparin Sodium 40 mg 12/13/24 09:00 12/15/24 08:55 Enoxaparin 40 Mg/0.4 Ml Syringe SUB-Q 40 mg DAILY YOHANA Administration Glucose 15 gm 12/13/24 09:15 Glucose Oral Gel 15 Gm Of Glucse In 37.5 Gm Tube PO PRN PRN Hypoglycemia Protocol Dextrose 1,000 mls @ 100 mls/hr 12/13/24 09:15 Dextrose 5% 1,000 Ml IVPB PRN PRN Hypoglycemia Protocol Insulin Aspart 2 - 5 units 12/13/24 12:00 12/15/24 08:10 Insulin Aspart (*Bkc) 100 Units/Ml SUB-Q Not Given TIDWM [facility] Protocol Insulin Aspart 1 - 2 units 12/13/24 21:00 12/14/24 21:09 Insulin Aspart (*Bkc) 100 Units/Ml SUB-Q Not Given HS [facility] Protocol Isosorbide Mononitrate 30 mg 12/14/24 09:00 12/15/24 08:56 Isosorbide Mononitrate 30 Mg Tab.Er.24h PO 30 mg QAM YOHANA Administration Levetiracetam 1,000 mg 12/12/24 21:00 12/15/24 08:56 Levetiracetam 500 Mg Tablet PO 1,000 mg Q12HR YOHANA Administration Lorazepam 0.5 mg 12/14/24 17:26 Lorazepam (*Crx) 0.5 Mg Tablet PO Q6H PRN Anxiety Metoprolol Succinate 100 mg 12/14/24 09:00 12/15/24 08:56 Metoprolol Succinate Ext Rel 100 Mg Tabcr PO 100 mg QAM YOHANA Administration Nitroglycerin 0.4 mg 12/12/24 16:46 12/13/24 11:16 Nitroglycerin Sl 0.4 Mg Tablet SUBLINGUAL 0.4 mg Q5MIN PRN Administration Chest Pain Pantoprazole Sodium 20 mg 12/12/24 21:00 12/15/24 08:56 Pantoprazole Sod Sesquihydrate 20 Mg Tab PO 20 mg Q12HR YOHANA Administration Rosuvastatin Calcium 40 mg 12/13/24 09:00 12/15/24 08:56 Rosuvastatin 20 Mg Tablet PO 40 mg DAILY YOHANA Administration Zolpidem Tartrate 5 mg 12/12/24 16:51 12/14/24 21:10 Zolpidem Tartrate (*Crx) 5 Mg Tablet PO 5 mg HS PRN Administration Insomnia Radiology Results: ITS Impressions Chest X-Ray 12/12/24 16:43 IMPRESSION: No acute cardiopulmonary process. Labs Labs: Laboratory Results - last 24 hr 12/14/24 12/14/24 12/15/24 16:11 20:07 04:01 WBC 6.0 RBC 3.39 L Hgb 11.0 L Hct 32.8 L MCV 96.8 MCH 32.4 MCHC 33.5 RDW 14.2 Plt Count 184 MPV 8.4 Sodium 129 L Potassium 4.3 Chloride 99 Carbon Dioxide 24 Anion Gap 6 BUN 16 Creatinine 1.01 Estim Creat Clear Calc 49 Estimated GFR > 60 Glucose 90 POC Capillary Glucose 102 131 H Calcium 8.6 Total Bilirubin 0.6 AST 24 ALT 18 Alkaline Phosphatase 63 Total Protein 5.7 L Albumin 3.4 L 12/15/24 12/15/24 07:40 11:32 WBC RBC Hgb Hct MCV MCH MCHC RDW Plt Count MPV Sodium Potassium Chloride Carbon Dioxide Anion Gap BUN Creatinine Estim Creat Clear Calc Estimated GFR Glucose POC Capillary Glucose 94 153 H Calcium Total Bilirubin AST ALT Alkaline Phosphatase Total Protein Albumin
--- NOTE | 2024-12-15 14:25 | PC.NURSE ---
Called with an update to [facility] at 1420. Son to arrive approx 1730.
== END 2024-12-15 19:08 | DRG 287 ==
LOC: ANHED 16:45 → ANHIMU 17:17
PROVIDERS: Emergency Medicine; General Practice; Internal Medicine; Nurse Practitioner Gerontology; Admitting Provider Internal Medicine; Emergency Provider Emergency Medicine; PCP Family Medicine; Visit Provider General Practice
PROC: 4A023N7 Measurement of Cardiac Sampling and Pressure, Left Heart, Percutaneous Approach (ICD-10-PCS; CPT 93452; principal; 2024-12-14 14:00)
DX: R07.9 Chest pain, unspecified (principal); E87.1 Hypo-osmolality and hyponatremia; I25.10 Atherosclerotic heart disease of native coronary artery without angina pectoris; I48.91 Unspecified atrial fibrillation; I10 Essential (primary) hypertension; R56.9 Unspecified convulsions; K57.90 Diverticulosis of intestine, part unspecified, without perforation or abscess without bleeding; I25.5 Ischemic cardiomyopathy; E11.9 Type 2 diabetes mellitus without complications; E78.5 Hyperlipidemia, unspecified; Z87.11 Personal history of peptic ulcer disease; Z95.5 Presence of coronary angioplasty implant and graft; Z86.73 Personal history of transient ischemic attack (TIA), and cerebral infarction without residual deficits
CPT/HCPCS: 36415; 71046; 80048; 80053; 82948; 83690; 83735; 83880; 84484; 85025; 85027; 85610; 85730; 93005; 93458; 96361; 96372; 96374; 96375; 97161; 99285; A9270; C1887; C1894; C8929; G0378; J1644; J1650; J1938; J2003; J3010; J7030; J7040; Q9957

== ENCOUNTER 2024-12-17 13:48 | Emergency (ER) | payer MEDICARE, SELFPAY ==
[2024-12-17 13:49] VITALS: BP 129/73; PULSE 90; RESP 16; TEMP 36.3; O2SAT 98
--- NOTE | 2024-12-17 14:01 | ED_ITS ---
HPI - General Adult General Chief complaint: Recheck/Abnormal Lab/Rx Stated complaint: rectal bleeding Time Seen by Provider: 12/17/24 13:56 History of Present Illness HPI narrative: This is an 84-year-old male presenting with a bleeding sacral ulcer. Per the half-way they noticed earlier today and called an ambulance. Patient has been started on Eliquis recently. He has no complaints. Related Data Home Medications ?Medication ?Instructions ?Recorded ?Confirmed ?Last Taken ?Type ascorbic acid (vitamin C) 500 mg 500 mg PO DAILY 09/15/21 12/13/24 11/01/24 History tablet vit C 250 mg-vit E 90 mg-zinc 40 1 tablet PO .q12hr 09/15/21 12/13/24 05/09/24 History mg-copper 1 im-yzdqoq-wojohq capsule (PreserVision AREDS-2) vitamin B complex (B 1 tablet PO DAILY 09/15/21 12/13/24 11/01/24 History Complex-Vitamin B12 tablet) acetaminophen 500 mg capsule 1,000 mg PO .q12hr 07/03/22 12/12/24 12/12/24 09:00 History 1,000 mg cholecalciferol (vitamin D3) 125 50 mcg PO DAILY 07/03/22 12/13/24 11/01/24 History mcg (5,000 unit) capsule coenzyme Q10 100 mg capsule 200 mg PO DAILY 07/03/22 12/13/24 11/01/24 History omega 6-mix-qlw-fish oil 1,200 mg 1 cap PO DAILY 07/03/22 12/13/24 11/01/24 History (144 mg-216 mg) capsule (Fish Oil) xlyyeagphdhq-rxnlqcbv-sgrqbx tablet 1 tablet PO DAILY 04/24/23 12/13/24 11/01/24 History levetiracetam 1,000 mg tablet 1,000 mg PO Q12H 05/24/24 12/12/24 11/01/24 History pantoprazole 40 mg tablet,delayed 20 mg PO Q12H 05/24/24 12/12/24 11/01/24 History release (Protonix) calcium carbonate 1,000 mg PO .tid prn 12/13/24 12/13/24 Unknown History escitalopram oxalate 10 mg tablet 10 mg PO HS 12/13/24 12/13/24 Unknown History Allergies Allergy/AdvReac Type Severity Reaction Status Date / Time No Known Allergies Allergy Verified 12/17/24 13:53 [facility] Past Medical History Medical History (Updated 12/17/24 @ 14:08 by Fermín Rodriguez MD) Anemia History of GI diverticular bleed (07/2023) Diverticulitis Chronic GERD Atrial fibrillation Ischemic cardiomyopathy Coronary artery disease Hyperlipidemia Diet-controlled diabetes mellitus Cerebrovascular accident with no reported residual deficits Chronic vascular disorders of intestine Essential (primary) hypertension Cerebral atherosclerosis Epilepsy, unspecified, not intractable, without status epilepticus Generalized anxiety disorder Glaucoma Surgical History Surgical History History of cardiac catheterization History of intravascular stent placement (2020) for superior mesenteric artery stenosis History of coronary artery stent placement x4 History of cholecystectomy (1999) History of open reduction and internal fixation (ORIF) procedure (04/2023) repair of right hip fracture History of bilateral knee replacement left 2010 right 2019 History of cataract extraction Family History Family History Father Cerebrovascular accident Sibling Breast cancer Sister Diabetes mellitus Kidney failure Social History Social History Social History: Surrogate medical decision maker: Sera Rocha, spouse. Code status: Full code. Smoking packs per day: 1.5 Smoking cigarettes per day: 30.0 Years smoked: 10 Smoking pack-years: 15.00 Smoking status: Former smoker Smokeless tobacco user: chewing tobacco Second hand tobacco smoke exposure: Yes Additional smoking assessment comments: quit chewing tobacco in 2022 Alcohol intake: former Substance use: never Substance use type: does not use Do You Feel Safe in your Home?: Yes Lack of Transportation: No Lack of Food: Never True Current Housing: I Have Housing Concerned About Future Housing: No Difficulty Paying Gas/Electric Bills: No Difficulty Paying for Meds: No Currently Unemployed: No Education: Trade/Vocational Certificate Difficulty w/ Childcare or Family Care: No Living arrangements: with family Additional living arrangements comments: Lives with in [place]. Ambulates with a walker. 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 Spiritual care concerns: No Exam Narrative: APPEARANCE: No apparent distress. Head: atraumatic. EYES: EOMI, NOSE: Atraumatic NECK: Trachea midline RESPIRATORY: No increased rate of breathing CARDIOVASCULAR: RRR, ABDOMINAL: Non-distended MUSCULOSKELETAl: No obvious deformities NEURO: Alert. Moving 4/4 extremities SKIN:: Superficial skin breakdown over the sacrum, no active bleeding PSYCHIATRIC: Normal affect Course Vital Signs Vital signs: Vital Signs Temperature 97.4 F L 12/17/24 13:49 Pulse Rate 90 12/17/24 13:49 Respiratory Rate 16 12/17/24 13:49 Blood Pressure 129/73 12/17/24 13:49 Pulse Oximetry 98 12/17/24 13:49 Temperature 97.4 F L 12/17/24 13:49 Pulse Rate 90 12/17/24 13:49 Respiratory Rate 16 12/17/24 13:49 Blood Pressure 129/73 12/17/24 13:49 Pulse Oximetry 98 12/17/24 13:49 Medical Decision Making MDM Narrative Medical decision making narrative: -Course: 84-year-old male presenting with a bleeding sacral ulcer. Bleeding was controlled by time he got to the ED. Wound Care evaluated the patient is provided recommendations. Patient discharged back to the half-way. -DDX includes but is not limited to: Pressure ulcer, uncontrolled bleeding Vital Signs Vital Signs: Vital Signs Temperature 97.4 F L 12/17/24 13:49 Pulse Rate 90 12/17/24 13:49 Respiratory Rate 16 12/17/24 13:49 Blood Pressure 129/73 12/17/24 13:49 Pulse Oximetry 98 12/17/24 13:49 Temperature 97.4 F L 12/17/24 13:49 Pulse Rate 90 12/17/24 13:49 Respiratory Rate 16 12/17/24 13:49 Blood Pressure 129/73 12/17/24 13:49 Pulse Oximetry 98 12/17/24 13:49 Discharge Plan Discharge Clinical Impression: Sacral decubitus ulcer Patient Disposition: Home Condition: Stable Instructions: Antibiotic Form, Acute Wounds (DC) Additional Instructions: If Mr. Rocha starts bleeding again, hold direct pressure for 15 minutes before sending him to the emergency room. Please follow the wound care instructions and he can follow up with the [facility] as needed. Patient Language: Guatemalan Prescriptions: No Action clopidogrel 75 mg tablet 75 mg PO DAILY Qty: 90 1RF metoprolol succinate 50 mg tablet extended release 24 hr 50 mg PO DAILY Qty: 100 1RF rosuvastatin 40 mg tablet 40 mg PO DAILY Qty: 90 1RF coenzyme Q10 100 mg capsule 200 mg PO DAILY cholecalciferol (vitamin D3) 125 mcg (5,000 unit) capsule 50 mcg PO DAILY acetaminophen 500 mg capsule 1,000 mg PO .q12hr omega 0-aer-aej-fish oil [Fish Oil] 1,200 (144-216) mg capsule 1 cap PO DAILY ferrous sulfate 325 mg (65 mg iron) tablet 325 mg PO DAILY Qty: 90 0RF ascorbic acid (vitamin C) 500 mg Tablet 500 mg PO DAILY vitamin B complex [B Complex-Vitamin B12] Tablet 1 tablet PO DAILY PreserVision AREDS-2 250-90-40-1 mg Capsule 1 tablet PO .q12hr xagonptufycg-oyztfvlr-wiuevr Tablet 1 tablet PO DAILY pantoprazole [Protonix] 40 mg tablet,delayed release (DR/EC) 20 mg PO Q12H levetiracetam 1,000 mg tablet 1,000 mg PO Q12H polyethylene glycol 3350 [Miralax] 17 gram Powder In Packet 17 g PO QAM Qty: 14 0RF escitalopram oxalate 10 mg tablet 10 mg PO HS calcium carbonate 500 mg calcium (1,250 mg) tablet,chewable 1,000 mg PO .tid prn isosorbide mononitrate 30 mg Tablet Extended Release 24 Hr 30 mg PO QAM Qty: 15 0RF Eliquis 5 mg tablet 5 mg PO BID Qty: 60 0RF Follow-up/Referrals: Daren Colvin MD [Primary Care Provider] -
--- OUTSIDE RECORDS SUMMARY | 2024-12-17 14:22 | XMS_ITS | Encounter Summary ---
Author Organization [facility] Healthcare Address [address] [place] [address] Care Team Providers Care Life Tester [employer] Name Role Phone Daren Colvin MD Primary Care Provider [phone] Encounter Details Date Type Department Care Team (Late st Contact Info) Description 12/15/[address] [facility] Medical Group Cardiology [address] [place] [address] Samm Pa MD [address] [place] [id number] Social History Tobacco Use Types Packs/Day Years Used Date Smoking Tobacco: Former Cigars Smokeless Tobacco: Current Snuff Comments:Quit 40years ago AUDIT-C Answer Date Recorded Q1: How often do you have a drink containing alc ohol? Monthly or less 09/29/2021 Average Number of Drinks Not on file 022 Frequency of Binge Drinking Not on file 09/04 Personal Safety Answer Date Recorded Getting School Help Needed Not on file 05/09 Sex and Gender Information Value Date Recorded Sex Assigned at Not on file Legal Sex Male 9:00 AM CDT Gender Identity Not on file Sexual Orientation Not on file documented as of this encounter Plan of Treatment Not on file documented as of this encounter Procedures Procedure Name Priority Date/Time Associated Diagnosis Comments CARDIOLOGY DOCUMENT SCAN Routine 12/15/2024 5:31 PM CDT CARDIOLOGY DOCUMENT SCAN Routine 12/14/2024 5:33 PM CDT CARDIOLOGY DOCUMENT SCAN Routine 12/14/2024 5:30 PM CDT CARDIOLOGY DOCUMENT SCAN Routine 12/13/2024 5:27 PM CDT documented in this encounter Results * Cardiology Document Scan (12/15/2024 5:31 PM CDT) Anatomical Region Laterality Modality Other Result Thai Ramirez MD [facility] PROCEDURES F inal Result * Cardiology Document Scan (12/14/2024 5:33 PM CDT) Anatomical Region Laterality Modality Other Result Thai Ramirez MD CV CARDIAC SERVICES PROCEDURES F inal Result * Cardiology Document Scan (12/14/2024 5:30 PM CDT) Anatomical Region Laterality Modality Other Result Thai Ramirez MD CV CARDIAC SERVICES PROCEDURES F inal Result * Cardiology Document Scan (12/13/2024 5:27 PM CDT) Anatomical Region Laterality Modality Other us Samm Pa MD CV CARDIAC SERVICES PROCEDU RES Final Result documented in this encounter Visit Diagnoses Not on filedocumented in this encounter Care Teams Life [employer] Relationship Specialty Start Date End Date Daren Colvin MD [address] [place] [id number] PCP - General Family Medicine 03/28/21 documented as of this encounter
--- OUTSIDE RECORDS SUMMARY | 2024-12-17 14:22 | XMS_ITS | Clinical Summary ---
Author Organization [facility] [address] [facility] [address] Address [address] [place] [address] Care Team Providers Care Lead Sql Developer Name Role Phone Daren Colvin MD Primary Care Provider [phone] Allergies No known active allergies Medications pantoprazole DR (PROTONIX) 40 mg EC tablet Take by mouth 2 (two) times a day 03/04/2021 Active levETIRAcetam (KEPPRA) 1,000 mg tablet Take by mouth 2 (two) times a day 03/06/2021 Active gemfibroziL (LOPID) 600 mg tablet Take by mouth 2 (two) times a day 03/04/2021 Active aspirin 81 mg enteric coated tablet Take 1 tablet (81 mg total) by mouth daily Active clopidogreL (PLAVIX) 75 mg tablet Take 1 tablet (75 mg total) by mouth daily Active atorvastatin (LIPITOR) 40 mg tablet Take 1 tablet (40 mg total) by mouth nightly Active acetaminophen (TYLENOL) 325 mg tablet Take 2 tablets (650 mg total) by mouth 2 (two) times a day as needed for pain Active ascorbic acid (VITAMIN C) 500 mg tablet,chewable Take 1 tablet/chew tab (500 mg total) by mouth daily Active metoprolol XL (TOPROL-XL) 50 mg extended release tablet Take 1 tablet (50 mg total) by mouth daily 90 tablet 3 07/24/2022 Active nitroglycerin (NITROSTAT) 0.4 mg SL tablet DISSOLVE ONE TABLET UNDER THE TONGUE EVERY 5 MINUTES NEEDED FOR CHEST PAIN. DO NOT EXCEED A TOTAL OF 3 DOSES IN 15 MINUTES 25 tablet 12/20/2022 Active amiodarone (PACERONE) 200 mg tablet Take 1 tablet (200 mg total) by mouth daily 30 tablet 11 02/07/2024 Active Active Problems Problem Noted Date Diagnosed Date Near syncope 01/24/2023 Angina pectoris, unspecified 07/24/2022 History of stroke 09/29/2021 Seizure disorder 09/29/2021 Mixed hyperlipidemia 04/20/2021 Assessment & Plan (05/24/2021 1:56 PM MANAGER OUTREACH): Followed by his PCP chronic and stable. I recommend that he continues to take his Lipitor as cholesterol lowering medication will help keep the stent patent. Assessment & Plan (04/20/2021 11:28 AM MANAGER OUTREACH): Chronic and stable. Patient was encouraged to make sure he continues his Lipitor as keeping on his cholesterol medication will help with the patency of his stent. I discussed with him that if he continues to smoke, have elevated blood pressure that is uncontrolled or elevated cholesterol that is uncontrolled than this stent can occlude. He understands. 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 He has done well since that time and is able to tolerate food without any abdominal pain and no more weight loss. I will have him follow up in 3 months with a repeat mesenteric artery duplex. Assessment & Plan (04/20/2021 11:31 AM MANAGER OUTREACH): Patient had SMA stenosis and underwent stent placement. He has done well since the placement of the stent as he is no longer having any pain and able to eat what he would like to eat. I will have him follow up in 1 month with a mesenteric artery duplex for stent surveillance. 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 Plan will be for a mesenteric artery angiogram with possible intervention. This was discussed with him and his . I discussed with them the risks, benefits and alternatives of the procedure which include but are not limited to: Bleeding, infection, damage to the vein, artery or nerve, further need for surgery to repair the artery, potential future surgery or need for more procedures, risk of kidney injury, risk of anesthesia, risk of potential stent occlusion which could result in a major operation, hospitalization and or . They said that they understand and are willing to proceed. Assessment & Plan (03/17/2021 9:58 AM MANAGER OUTREACH): Patient does have SMA stenosis seen on the CT scan with weight loss and food fear. Plan will be to have him get an aortic duplex and follow-up in 2 weeks. I discussed with him that he will likely need an angiogram with stent placement and he says he understands. He will follow up in 2 weeks. Tobacco abuse 03/17/2021 Assessment & Plan (05/24/2021 1:57 PM MANAGER OUTREACH): Patient is currently continuing to smoke but says he is cutting back. More than 3 minutes was spent discussing with him about the over hot benefits of smoking cessation. I discussed with him that there are things that can help him quit smoking. I told him that this stent will shut down if he continues to smoke. He says that he does understand and is going to continue cutting back to quit. Assessment & Plan (04/20/2021 11:31 AM MANAGER OUTREACH): Patient is continuing to use tobacco and currently using loose tobacco. He says that he is cutting back and trying to cut back to quit. Again more than 3 minutes was spent discussing with him about the effects of tobacco on his overall cardiovascular health. He says that he is cutting back and trying to quit. He knows that quitting smoking will help with the patency of the stent as I have told him this repeatedly and once again did tell him that if he continues to use tobacco that the stent will go down and could cause him to be in the hospital, significant bowel damage or resection or even . Assessment & Plan (03/28/2021 11:25 AM MANAGER OUTREACH): We once again discussed smoking cessation. He is currently still vaping with nicotine. More than 3 minutes was once again discussed with him about the nicotine effects on the blood vessels and how smoking cessation would be the best thing for him in the long run. I also discussed with him that if we placed a stent and he continues smoking that there is a knee even higher risk that the stent will shut down. At that time he could potentially lose some or all of his bowel or even his life if this stent shut down. Assessment & Plan (03/17/2021 9:57 AM MANAGER OUTREACH): Patient used to smoke cigarettes and now vapes with nicotine. It was discussed with him for more than 3 minutes about the effects of nicotine on the blood vessels and how he needs to quit smoking any form of nicotine. We discussed that there are many options to help him quit and get off of nicotine altogether. He says he understands and will try to cut back even more at this time. Primary hypertension 03/17/2021 Assessment & Plan (05/24/2021 1:56 PM MANAGER OUTREACH): Followed by his PCP and chronic and stable. I recommend he continue his Norvasc and metoprolol. Good blood pressure control will also help with patency of his stent. He also is going to see his primary care doctor next week and will likely need to see his arborist given his chest pain. Assessment & Plan (04/20/2021 11:29 AM MANAGER OUTREACH): Chronic and stable and followed by his PCP. Patient will continue his Norvasc and metoprolol. Again good blood pressure control will help with the patency of his stent. Assessment & Plan (03/28/2021 11:24 AM MANAGER OUTREACH): Followed by his PCP and controlled on his current medications. Assessment & Plan (03/17/2021 9:57 AM MANAGER OUTREACH): Followed by his PCP and controlled on his current medications. Coronary artery disease invo lving cantwell coronary artery of cantwell heart 03/06/2021 Assessment & Plan (05/24/2021 1:58 PM MANAGER OUTREACH): Patient underwent cardiac stenting previously. He had done well and that time but says recently he has been having chest pains. He is not sure that they are related to his heart but he said that he will get stress in his start having chest pain and when he is more relaxed will go away. He is going to see his primary doctor next week and I told him that he needs to make an appointment with his arborist as well. Assessment & Plan (03/17/2021 9:58 AM MANAGER OUTREACH): Patient has coronary artery disease and underwent stent placement. History of coronary artery stent placement 09/03 Assessment & Plan (03/28/2021 11:26 AM MANAGER OUTREACH): Patient has stents placed before and has not had any chest pain or issues since that time. S/P drug eluting coronary stent placement Resolved Problems Problem Noted Date Diagnosed Date Resolved Date CAD (coronary artery disease) 09/29/2021 09/29/2021 Encounters Date Type Department Care Team Description 12/15/2024 Orders Only [facility] Medical Group Cardiology [address] [place] [address] Samm Pa MD from Last 3 Months Surgical History Surgery Date Site/Laterality Comments CORONARY ANGIOPLASTY 09/03/2020 - 10/03/2020 4 stents TOTAL KNEE ARTHROPLASTY Bilateral CATARACT EXTRACTION CHOLECYSTECTOMY VASCULAR SURGERY 04/04/2021 mesenteric artery angio, possible intervention Medical History Medical History Date Comments Hypertension Hyperlipidemia Coronary artery disease 09/2020 4 cardia c stents Cholelithiasis had gallbladder removed GERD (gastroesophageal reflux disease) Glaucoma Type 2 diabetes mellitus diet co ntrol no meds Seizures (HCC) last seizure 202 0/unknown cause Stroke (HCC) TIA's vs. seizur es no residual, felt funny and difficulty walking Family History Medical History Relation Name Comments Heart disease Father Relation Name Status Comments Father Social History Tobacco Use Types Packs/Day Years Used Date Smoking Tobacco: Former Cigars Smokeless Tobacco: Current Snuff Tobacco Cessation:Ready to Q uit: Not Asked; Counseling Given: Not Answered Comments:Quit 40years ago AUDIT-C Answer Date Recorded [...] on file Sexual Orientation Not on file Obstetrics History Last Filed Vital Signs Vital Sign Reading Time Taken Comments Blood Pressure 112/70 01/28/2024 12:01 PM CDT Pulse 57 01/28/2024 12:01 PM CDT Temperature 37.2 C (98.9 F) 09/30/2021 8:48 AM CDT Respiratory Rate 20 09/30/2021 8:48 AM CDT Oxygen Saturation 98% 01/28/2024 12:01 PM CDT Inhaled Oxygen Concentration - - Weight 65.1 kg (143 lb 9.6 oz) 01/28/2024 12:01 PM CDT Height 177.8 cm (5' 10) 01/28/2024 12:01 PM CDT Body Mass Index 20.6 01/28/2024 12:01 PM CDT Plan of Treatment Health Maintenance Due Date Last Done Comments Depression Screening 1940 DTaP/Tdap/Td Vaccine (1 - Tdap) 10/12/1950 Hepatitis B Screening 10/12/1957 Pneumococcal vaccine 65+ (1 of 1 - PCV) 10/12/1989 Zoster Vaccine (1 of 2) 10/12/1989 Well Visit 65+ 10/12/2004 Fall Risk Assessment 09/30/2022 09/30/2021 Covid-19 Vaccine ( season) 2024 03/22/2021, 08/24/2020, 07/27/2020 Influenza Vaccine (#1) 2025 03/22/2021, 2012 Medical Devices Implanted Type Area Mop Worker Device Identifier Shelf Expiration Date Model / Serial / Lot [employer] Device Clsr Perclose Prostyle Sut-Mediatd Closure-Repai r Sys [id number] - S0 - [id number] Implanted:Qty : 1 on 09/29/2021 by Yosvany Tam MD at [facility] Other - see comments Right: Femoral [employer] 09/03/2023 [id number] / 0 / [id number] Description:Fem Art Closure Device [employer] Ren Stent Drug Eluting S Megatron Us Mr [id number] - S0 - [id number] Implanted:Qty : 1 on 09/29/2021 by Yosvany Tam MD at [facility] Stent N/A: Coronary [place] [employer] Ren 11/30/2021 [id number] / 0 / [id number] Description:Ost RCA [employer] [id number] Lifestream 6mm 26mm 80cm Balloon Expandable Low Profile Cover - [id number] Implanted:Qty : 1 on 04/04/2021 by Sana Ruggiero MD at [facility] [employer] 08/03/2022 [id number] / / [id number] [employer] [id number] Perclose 6fr Suture Mediate Knot Push Vascular Device Closure - [id number] Implanted:Qty : 1 on 04/04/2021 by Sana Ruggiero MD at [facility] [employer] 12/03/2022 [id number] / / [id number] Procedures Procedure Name Priority Date/Time Associated Diagnosis Comments CARDIOLOGY DOCUMENT SCAN Routine 12/15/2024 5:31 PM CDT CARDIOLOGY DOCUMENT SCAN Routine 12/14/2024 5:33 PM CDT CARDIOLOGY DOCUMENT SCAN Routine 12/14/2024 5:30 PM CDT CARDIOLOGY DOCUMENT SCAN Routine 12/13/2024 5:27 PM CDT from Last 3 Months Results * Cardiology Document Scan (12/15/2024 5:31 PM CDT) Anatomical Region Laterality Modality Other us Scott Ramirez MD [facility] CARDIAC SERVICES PROCEDURES F inal Result * Cardiology Document Scan (12/14/2024 5:33 PM CDT) Anatomical Region Laterality Modality Other us Scott Ramirez MD CV CARDIAC SERVICES PROCEDURES F inal Result * Cardiology Document Scan (12/14/2024 5:30 PM CDT) Anatomical Region Laterality Modality Other us Scott Ramirez MD CV CARDIAC SERVICES PROCEDURES F inal Result * Cardiology Document Scan (12/13/2024 5:27 PM CDT) Anatomical Region Laterality Modality Other Samm Pa MD [facility] CARDIAC SERVICES PROCEDU RES Final Result from Last 3 Months Insurance AETNA MEDICARE GOLD AETNA MEDICARE GOLD Advance Directives For more information, please contact: [phone] * Full Code (Latest Code Status on File) Date Activated Date Inactivated Comments 09/29/2021 3:21 PM 09/30/2021 5:40 PM * Full Code Date Activated Date Inactivated Comments 04/04/2021 12:37 PM 04/04/2021 7:08 PM Care Teams Lead Sql Developer Relationship Specialty Start Date End Date Daren Colvin MD [address] [place] [id number] PCP - General Family Medicine 03/28/21
--- NOTE | 2024-12-17 14:38 | PC.NURSE ---
spoke to primary caregiver, informed her of discussion with wound care. informed her of POC, that wounds need to covered with Remedy, Antifungal Barrier cream, if bleeding, can also use Remedy, Vaseline guaze and ABD pads. informed that area of concern was caused by friction and maceration.
[2024-12-17 15:01] VITALS: BP 126/68; PULSE 79; RESP 16; O2SAT 99
[2024-12-17 15:28] VITALS: BP 136/74; PULSE 78; RESP 16; O2SAT 98
== END 2024-12-17 15:29 ==
LOC: ANHED 14:20
PROVIDERS: Emergency Provider Emergency Medicine; PCP Family Medicine
DX: L89.159 Pressure ulcer of sacral region, unspecified stage (principal); I10 Essential (primary) hypertension; I25.10 Atherosclerotic heart disease of native coronary artery without angina pectoris; I67.2 Cerebral atherosclerosis; I48.91 Unspecified atrial fibrillation; E11.39 Type 2 diabetes mellitus with other diabetic ophthalmic complication; H40.9 Unspecified glaucoma; H42 Glaucoma in diseases classified elsewhere; E78.5 Hyperlipidemia, unspecified; G40.909 Epilepsy, unspecified, not intractable, without status epilepticus; K21.9 Gastro-esophageal reflux disease without esophagitis; Z95.5 Presence of coronary angioplasty implant and graft; Z96.653 Presence of artificial knee joint, bilateral; Z87.891 Personal history of nicotine dependence; Z86.73 Personal history of transient ischemic attack (TIA), and cerebral infarction without residual deficits; Z86.2 Personal history of diseases of the blood and blood-forming organs and certain disorders involving the immune mechanism; Z90.49 Acquired absence of other specified parts of digestive tract; Z98.49 Cataract extraction status, unspecified eye; Z79.01 Long term (current) use of anticoagulants; Z79.02 Long term (current) use of antithrombotics/antiplatelets; Z79.899 Other long term (current) drug therapy
CPT/HCPCS: 99282

== ENCOUNTER 2025-02-06 06:55 | Inpatient (IN) | payer MEDICARE, SELFPAY ==
[2025-02-06] VITALS (38 sets, daily range): BP systolic 96–161; BP diastolic 54–78; PULSE 66–110; RESP 16–27; TEMP 36.4–36.9; O2SAT 88–99; BMI 25.0
--- NOTE | ~2025-02-06 | CT_ITS ---
EXAMINATION: CT pelvis wo con DATE: 02/06/2025 09:13 INDICATION: Left hip pain. TECHNIQUE: Computed tomography (CT) of the pelvis was performed without intravenous contrast. Automated exposure control and iterative reconstruction technique were employed. The dose-length product was 335.78 mGy-cm. COMPARISON: CT 11/02/2024 FINDINGS: There is a 10 mm cyst in left kidney. There is a left inguinal hernia containing fat. There are no pathologically enlarged lymph nodes. There is no ascites. The prostate is mildly enlarged. There is diverticulosis of the colon without evidence of diverticulitis. There is a subcapital fracture of left femoral neck. The distal fracture fragment demonstrates posterior angulation, impaction, and 35 degrees varus angulation. There is an old healed fracture proximal right femur with internal fixation. There is moderate osteoarthritis of the hips. There is severe lumbar spondylosis. IMPRESSION: 1. Subcapital fracture of left femoral neck. 2. Moderate osteoarthritis of the hips. 3. Left inguinal hernia containing fat. Reviewed, dictated and finalized at location E.
--- NOTE | ~2025-02-06 | CT_ITS ---
EXAMINATION: CT brain wo con DATE: 02/06/2025 07:52 INDICATION: Head injury. TECHNIQUE: Computed tomography (CT) of the head was performed without intravenous contrast. The mA was adjusted according to patient size. Iterative reconstruction technique was employed. The dose-length product was 681.00 mGy-cm. COMPARISON: Head CT 11/02/2024 FINDINGS: There are old infarcts in the cerebellum bilaterally. There are old infarcts involving the right parietal occipital region and left occipital lobe. There is no intracranial hemorrhage, acute infarction, or abnormal intracranial mass lesion. The ventricles are normal in size. There are likely changes of right ocular lens replacement surgery. There is mild mucosal thickening in the paranasal sinuses. The mastoid air cells are normal. IMPRESSION: 1. Old infarcts involving the cerebellum, right parietal-occipital region, and left occipital lobe. Reviewed, dictated and finalized at location E.
--- NOTE | ~2025-02-06 | XR_ITS ---
Examination: XR knee LT 3V Clinical History: eval prosthesis Comparison: X-rays left femur today Technique: 3 views left knee Findings/impression: 1. Subtle thin lucency beneath tibial component medial surface could suggest loosening. 2. Otherwise no acute abnormality. No fracture or effusion. Reviewed, dictated and finalized at location R.
--- NOTE | ~2025-02-06 | XR_ITS ---
Examination: XR chest 1V Clinical History: Syncope Comparison: 01/03/2025 Technique: Portable AP Findings: Heart size normal. Persistent small nodular focus right midlung. Lungs otherwise clear. No acute bony abnormality. IMPRESSION: 1. No acute cardiopulmonary findings given portable technique. 2. Small nodular focus right midlung unchanged. Continued attention on future x-rays. Alternatively, CT chest in 3 months. Reviewed, dictated and finalized at location R.
--- NOTE | ~2025-02-06 | XR_ITS ---
Examination: XR pelvis 1-2V Clinical History: POSTOP Comparison: 1 day prior Technique: 2 views pelvis Findings/impression: 1. Expected findings and appearance after left hip TKA. 2. No periprosthetic fracture or other complication noted, given single projection. Reviewed, dictated and finalized at location R.
--- NOTE | ~2025-02-06 | XR_ITS ---
Examination: XR pelvis 1-2V, XR femur LT min 2V Clinical History: Left hip pain Comparison: CT chest abdomen pelvis 11/02/2024 Technique: AP pelvis, 2 views left femur 4 films Findings/impression: Pelvis: 1. No acute pelvic bony abnormality identified. 2. See below Left femur: 1. Worrisome for left femoral cervical fracture, but suboptimally visualized. If clinical ambiguity, recommend CT. 2. Distal femur intact. 3. Peripheral arterial disease. Reviewed, dictated and finalized at location R.
--- NOTE | ~2025-02-06 | CT_ITS ---
EXAMINATION: CT cervical spine wo con DATE: 02/06/2025 07:53 INDICATION: Head injury. TECHNIQUE: Computed tomography (CT) of the cervical spine was performed without intravenous contrast. Automated exposure control and iterative reconstruction technique were employed. The dose-length product was 499.29 mGy-cm. COMPARISON: Cervical spine 04/23/2023 FINDINGS: The thyroid is enlarged. Alignment is normal. There is mild chronic anterior wedging of T1 and T2 vertebral bodies. There is mildly decreased disc height at C2-C3, moderately decreased disc height at C3-C4 and C4-C5, and severely decreased disc height at C5-C6 and C6-C7. There is multilevel severe facet joint osteoarthritis. There is ankylosis of the facet joints at C2-C3. There is mild neural foraminal stenosis at multiple levels on either side. There is mild central canal stenosis at C2-C3, C3-C4, C4-C5, C5-C6, and C6-C7. IMPRESSION: 1. No fracture. 2. Severe cervical spondylosis. Reviewed, dictated and finalized at location E.
--- NOTE | 2025-02-06 07:18 | ECG_ITS ---
Test Date: 2025-02-06 08:30:22 Measurements Intervals [place]is Rate: 81 P: 0 NV: 0 QRS: -49 QRSD: 119 T: 30 QT: 384 QTc: 447 Interpretive Statements ATRIAL FIBRILLATION WITH FREQUENT VENTRICULAR PREMATURE COMPLEXES RIGHT BUNDLE BRANCH BLOCK LEFT ANTERIOR FASCICULAR BLOCK ABNORMAL ECG Compared to ECG 01/03/2025 11:44:13 NO SIGNIFICANT CHANGE Electronically Signed On 02-06-2025 09:55:04 CDT by Mike Jett D.O.
[2025-02-06] MEDS: ONDANSETRON INJ 4 MG/2 ML VIAL IV PUSH (07:24)
[2025-02-06] MEDS: MORPHINE SULFATE (*CRX) 4 MG/ML INJ 2 MG IV PUSH (07:25)
[2025-02-06 07:35] LABS: Hematocrit 37.7 % (42.0-52.0); Hemoglobin 12.2 g/dL (14.0-18.0); Immature Granulocyte Percent A 1.0 % (0-0.5); Lymphocytes Absolute Auto 1.17 K/mm3 (0.9-3.2); Mean Corpuscular HGB Conc 32.4 g/dl (32-36); Mean Corpuscular Hemoglobin 31.1 pg (26-34); Mean Corpuscular Volume 96.2 fl (80-100); Nucleated Red Blood Cells Absolute Auto 0.000 K/mm3 (0.0-0.012); Nucleated Red Blood Cells Perc 0.0 % (0.0-0.2); Platelet Count Result 179 k/mm3 (150-375); Red Blood Count 3.92 M/mm3 (4.6-6.20); White Blood Count 6.1 K/mm3 (4.5-10.0)
--- NOTE | 2025-02-06 07:40 | ED.WEAKNESS ---
HPI - Weakness General Chief complaint: Weakness Stated complaint: weakness Time Seen by Provider: 02/06/25 07:01 Source: patient Mode of arrival: EMS Limitations: no limitations History of Present Illness HPI Narrative: 84-year-old male, with history of stroke without residual deficits coronary artery disease and anemia, brought in by EMS after fall at his assisted living facility. Patient states he was going to the bathroom when he believes he fell. He does not recall the fallen states he has been having ?spells?. Denies chest pain, shortness of breath or loss of consciousness. He complains of moderate to severe left hip pain. He has no other complaints at this time. Related Data Home Medications ?Medication ?Instructions ?Recorded ?Confirmed ?Last Taken ?Type ascorbic acid (vitamin C) 500 mg 500 mg PO DAILY 09/15/21 02/06/25 02/06/25 History tablet vit C 250 mg-vit E 90 mg-zinc 40 1 tablet PO .q12hr 09/15/21 02/06/25 02/06/25 History mg-copper 1 [id number] capsule (PreserVision AREDS-2) vitamin B complex (B 1 tablet PO DAILY 09/15/21 02/06/25 02/06/25 History Complex-Vitamin B12 tablet) acetaminophen 500 mg capsule 500 mg PO .q12hr 07/03/22 02/06/25 02/05/25 History cholecalciferol (vitamin D3) 125 50 mcg PO DAILY 07/03/22 02/06/25 02/06/25 History mcg (5,000 unit) capsule coenzyme Q10 100 mg capsule 200 mg PO DAILY 07/03/22 02/06/25 02/06/25 History omega 8-wck-hug-fish oil 1,200 mg 1 cap PO DAILY 07/03/22 02/06/25 02/05/25 History (144 mg-216 mg) capsule (Fish Oil) levetiracetam 1,000 mg tablet 1,000 mg PO Q12H 05/24/24 02/06/25 02/06/25 History pantoprazole 40 mg tablet,delayed 20 mg PO Q12H 05/24/24 02/06/25 02/06/25 History release (Protonix) escitalopram oxalate 10 mg tablet 20 mg PO DAILY 12/13/24 02/06/25 02/06/25 History amitriptyline 10 mg tablet 10 mg PO BID 02/06/25 02/06/25 02/06/25 History buspirone 7.5 mg tablet 7.5 mg PO BID 02/06/25 02/06/25 02/06/25 History Allergies Allergy/AdvReac Type Severity Reaction Status Date / Time No Known Allergies Allergy Verified 01/03/25 07:42 Review of Systems Review of Systems: All systems reviewed & are unremarkable except as noted in HPI and below [facility] Past Medical History Medical History Anemia History of GI diverticular bleed (07/2023) Diverticulitis Chronic GERD Atrial fibrillation Ischemic cardiomyopathy Coronary artery disease Hyperlipidemia Diet-controlled diabetes mellitus Cerebrovascular accident with no reported residual deficits Chronic vascular disorders of intestine Essential (primary) hypertension Cerebral atherosclerosis Epilepsy, unspecified, not intractable, without status epilepticus Generalized anxiety disorder Glaucoma Surgical History Surgical History History of cardiac catheterization 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 Code status: Full code. Smoking packs per day: 1.5 Smoking cigarettes per day: 30.0 Years smoked: 10 Smoking pack-years: 15.00 Smoking status: Former smoker Tobacco type: cigarettes Smokeless tobacco user: chewing tobacco Second hand tobacco smoke exposure: Yes Additional smoking assessment comments: quit chewing tobacco in 2022 Alcohol intake: former Substance use: never Substance use type: does not use Do You Feel Safe in your Home?: Yes Lack of Transportation: No Lack of Food: Never True Current Housing: I Have Housing Concerned About Future Housing: No Difficulty Paying Gas/Electric Bills: No Difficulty Paying for Meds: No Currently Unemployed: No Education: Trade/Vocational Certificate Difficulty w/ Childcare or Family Care: No Living arrangements: with family Additional living arrangements comments: Lives with in [place]. Ambulates with a walker. 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 Spiritual care concerns: No Exam Narrative: GENERAL: Well-developed, well-nourished, and in no acute distress. HEAD: Normocephalic, atraumatic. EYES: PERRLA and EOMI. ENT: Nares clear, no rhinorrhea or epistaxis. Mucous membranes dry. Oropharynx without tonsillar hypertrophy exudate or other lesions. NECK: Supple. No midline spine tenderness to palpation, no step-off or crepitus CHEST: Clear to auscultation. No respiratory distress. No wheezes rales or rhonchi HEART: Regular rate and rhythm. No murmur heard. Normal peripheral pulses. ABDOMEN: Soft, nontender, nondistended, normal active bowel sounds. EXTREMITIES: Tender palpation over the left hip without ecchymosis. The left foot is externally rotated. Flexion and left hip limited by pain. Normal range of motion all other extremities. No edema. SKIN: Warm, dry, no rash. NEURO: Alert and oriented x3. No focal deficit. Moving all 4 limbs spontaneously PSYCH: Normal mood and affect. Course Course Emergency Course: 11:03 - X-ray of the pelvis was inconclusive regarding fracture. CT of the pelvis showed a subcapital femoral neck fracture. CBC demonstrates hemoglobin of 12.2 but is otherwise unremarkable. Chemistries demonstrate mildly decreased sodium of 134 but is otherwise unremarkable. UA not concerning for UTI. EKG demonstrates AFib with PVCs but is otherwise unremarkable CT head and neck negative for intracranial hemorrhage, skull fracture or cervical spine fracture. X-ray of the femur not concerning for other fracture. I discussed the patient with orthopedic surgeon, Dr. Melendrez who agrees to consult. I discussed the patient with hospitalist, Dr. Lozano who accepts admission. Vital Signs Vital signs: Vital Signs Temperature 98.4 F 02/06/25 06:52 Pulse Rate 93 02/06/25 06:52 Respiratory Rate 26 H 02/06/25 06:52 Blood Pressure 151/76 H 02/06/25 06:52 Pulse Oximetry 97 02/06/25 06:52 Oxygen Delivery Room Air 10/04/25 06:52 Temperature 97.5 F L 02/06/25 15:39 Pulse Rate 77 02/06/25 15:39 Respiratory Rate 20 02/06/25 15:39 Blood Pressure 124/64 02/06/25 15:39 Pulse Oximetry 98 02/06/25 15:40 Oxygen Delivery Nasal Cannula 02/06/25 15:40 Oxygen Flow Rate 2 02/06/25 15:40 MDM - Weakness MDM Narrative Medical decision making narrative: Plan: Labs, imaging, pain control EKG, reassess Differential Diagnosis Differential diagnosis: Likely dehydration and other (UTI, arrhythmia, syncope, metabolic abnormality, anemia, pelvis fracture, femur fracture, other) Lab Data 02/06/25 07:28 02/06/25 07:28 Labs: Lab Results 02/06/25 02/06/25 Range/Units 07:28 08:36 WBC 6.1 (4.5-10.0) K/mm3 RBC 3.92 L (4.6-6.20) M/mm3 Hgb 12.2 L (14.0-18.0) g/dL Hct 37.7 L (42.0-52.0) % MCV 96.2 (80-100) fl MCH 31.1 (26-34) pg MCHC 32.4 (32-36) g/dl RDW 12.7 (11.5-14.5) % Plt Count 179 (150-375) k/mm3 MPV 9.0 (7.4-10.4) fl Immature Gran % (Auto) 1.0 H (0-0.5) % Neut % (Auto) 63.5 (45.5-73.1) % Lymph % (Auto) 19.2 (18.3-44.2) % Robertson % (Auto) 10.7 H (2.6-8.5) % Eos % (Auto) 4.8 H (0-4.4) % Baso % (Auto) 0.8 (0.2-1.2) % Lymph # (Auto) 1.17 (0.9-3.2) K/mm3 Robertson # (Auto) 0.7 H (0.1-0.6) K/mm3 Eos # (Auto) 0.3 (0-0.3) K/mm3 Baso # (Auto) 0.1 (0.0-0.1) K/mm3 Abs Immat Gran (auto) 0.06 H (0.00-0.031) K/mm3 Absolute Neuts (auto) 3.9 (1.3-6.7) K/mm3 Absolute Nucleated RBC 0.000 (0.0-0.012) K/mm3 Nucleated RBC % 0.0 (0.0-0.2) % Sodium 134 L (137-145) mmol/L Potassium 4.5 (3.4-5.0) mmol/L Chloride 99 (98-107) mmol/L Carbon Dioxide 27 (22-30) mmol/L Anion Gap 8 (4-12) mmol/L BUN 13 (9-20) mg/dL Creatinine 1.05 (0.7-1.3) mg/dL Estim Creat Clear Calc 49 ml/min Estimated GFR > 60 (59 - ) Glucose 104 (65-110) mg/dL Calcium 9.0 (8.4-10.2) mg/dL Magnesium 1.9 (1.6-2.3) mg/dL Total Bilirubin 0.5 (0.2-1.3) mg/dL AST 35 (17-59) U/L ALT 32 (6-50) U/L Alkaline Phosphatase 70 (38-126) U/L Total Protein 6.4 (6.3-8.2) g/dL Albumin 3.8 (3.5-5.1) g/dL Urine Color Yellow (Yellow) Urine Appearance Clear (Clear) Urine pH 6.0 (5.0-9.0) Ur Specific Biggs 1.017 (1.001-1.035) Urine Protein 2+ H (Negative) mg/dL Urine Glucose (UA) Negative (Negative) mg/dL Urine Ketones Negative (Negative) mg/dL Ur Blood (Man) Negative (Negative) Urine Nitrate Negative (Negative) Urine Bilirubin Negative (Negative) Urine Urobilinogen 1.0 (<2.0) mg/dL Leukocyte Esterase Rfl Trace H (Negative) QUAN/UL Urine RBC 0-2 (0-2) /hpf Urine WBC 0-5 (0-3) /hpf Ur Squamous Epith Cells None seen (Few) /hpf Urine Bacteria None seen /hpf Urine Casts 0-2 ECG Data EKG #1: Attestation: I personally reviewed and interpreted this ECG as follows: ECG completion date: 02/06/25 ECG completion time: 08:30 Interpretation: AFib with PVCs, rate 81 all, will axis deviation, no ST segment elevations or T-wave inversions concerning for ischemia, normal QTC of 421. No significant change compared to EKG done in December 2024 Discharge Plan Discharge Clinical Impression: Acute pain of left hip, Acute hyponatremia Closed subcapital fracture of neck of femur Qualifiers: Encounter type: initial encounter Laterality: left Qualified Code(s): S72.012A - Unspecified intracapsular fracture of left femur, initial encounter for closed fracture Patient Disposition: Still a Patient Condition: Stable Time of Disposition: 11:03
[2025-02-06 07:53] LABS: Alanine Aminotransferase 32 U/L (6-50); Albumin Level 3.8 g/dL (3.5-5.1); Alkaline Phosphatase 70 U/L (38-126); Anion Gap 8 mmol/L (4-12); Aspartate Amino Transferase 35 U/L (17-59); Bilirubin,Total 0.5 mg/dL (0.2-1.3); Blood Urea Nitrogen 13 mg/dL (9-20); Calcium 9.0 mg/dL (8.4-10.2); Carbon Dioxide 27 mmol/L (22-30); Chloride 99 mmol/L (98-107); Estimated CRCL calculation 49 ml/min; Estimated Glomerular Filt Rate > 60; Glucose 104 mg/dL (65-110); Magnesium 1.9 mg/dL (1.6-2.3); Potassium 4.5 mmol/L (3.4-5.0); Sodium 134 mmol/L (137-145); Total Protein 6.4 g/dL (6.3-8.2)
[2025-02-06 08:50] LABS: Add Urine Microscopic? YES; Appearance Urine Clear (Clear); Glucose Urine UA Negative (Negative); Leukocyte Esterase Ur Trace LEU/UL (Negative); Nitrate Urine Negative (Negative); Non Pathogenic Casts 0-2; Specific Grav Ur 1.017 (1.001-1.035)
[2025-02-06] MEDS: HYDROmorphone HCL INJ (*CRX) 1 MG/ML SYR 0.5 MG IV PUSH (09:28)
--- NOTE | 2025-02-06 11:51 | PC.NURSE ---
RN provided update to [facility]. They report they will update family.
--- NOTE | 2025-02-06 12:27 | PC.NURSE ---
Pt being transported to the floor at this time by tech. Remains on 2L NC which was placed by previous shift RN d/t O2 dropping to 88% with narcotic administration. Pt is alert and awake. Used urinal prior to transport to the floor.
--- NOTE | 2025-02-06 13:05 | ADMGEN ---
This patient, Fernando Rocha, was admitted to Medical Room 245-. Patient/family oriented to hospital policies and general routines including ID bracelet, bed and alarms, visiting hours, pain management, procedures, bathroom and other care routines, personal items, smoking policy, room service/diet, and visiting hours. Information on how to activate the Rapid Response Team has been discussed. Patient/Family are encouraged to report perceived risks to care and to ask questions if they do not understand what they are told or what they should do.
--- NOTE | 2025-02-06 14:25 | PM.IMHP ---
H&P: HPI History of Present Illness Date/Time: 02/06/25 14:25 Chief Complaint: Fall Narrative: 84-year-old male who was brought in by EMS after a fall at his assisted living facility. Patient states he was going to the bathroom when he fell. He does not recall how he fell. Denies any chest pain palpitations or shortness of breath. After a fall he complained of moderate to severe left hip pain. In the ED his vitals were stable. Laboratory workup revealed WBC of 6.1 hemoglobin 12.2 platelet count a 179. Chem panel shows sodium 134 potassium 4.5 chloride 99 bicarbonate 27 BUN 13 creatinine 1 blood glucose 104. At these were normal. Urinalysis was negative for UTI. EKG showed atrial fibrillation with controlled rate with no acute ST-T changes. QTC of 421. CT head showed old infarcts involving the cerebellum right parietal occipital region and leg it occipital lobe. CT cervical spine showed no fracture with severe sepsis cervical spondylosis. Chest x-ray showed no acute cardiopulmonary findings. Small nodular focus right mid lung unchanged. X-ray left pelvis and femur showed possible left femoral cervical fracture but sub optimally visualized. Distal femur intact. Peripheral arterial disease X-ray left hip with subtle thin lucency beneath tibial component medial surface which could suggest loosening. Pelvic CT shows and confirms subcapital fracture of left femoral neck with moderate osteoarthritis of the hips. Left inguinal hernia containing fat noted as well. He is admitted in this setting for further treatment. Review of Systems Review of Systems: - CONSTITUTIONAL: Denies weight loss, fever and chills. - HEENT: Denies changes in vision and hearing - RESPIRATORY: Denies SOB and cough. - CV: Denies palpitations and CP. - GI: Denies abdominal pain, nausea, vomiting and diarrhea. - : Denies dysuria and urinary frequency. - MSK: See HPI - SKIN: Denies rash and pruritus. - NEUROLOGICAL: See HPI - PSYCHIATRIC: Denies recent changes in mood. Denies anxiety and depression. [facility] Past Medical History Medical History Anemia History of GI diverticular bleed (07/2023) Diverticulitis Chronic GERD Atrial fibrillation Ischemic cardiomyopathy Coronary artery disease Hyperlipidemia Diet-controlled diabetes mellitus Cerebrovascular accident with no reported residual deficits Chronic vascular disorders of intestine Essential (primary) hypertension Cerebral atherosclerosis Epilepsy, unspecified, not intractable, without status epilepticus Generalized anxiety disorder Glaucoma Surgical History Surgical History History of cardiac catheterization History of intravascular stent placement (2020) for superior mesenteric artery stenosis History of coronary artery stent placement x4 History of cholecystectomy (1999) History of open reduction and internal fixation (ORIF) procedure (04/2023) repair of right hip fracture History of bilateral knee replacement left 2010 right 2019 History of cataract extraction Family History Family History Father Cerebrovascular accident Sibling Breast cancer Sister Diabetes mellitus Kidney failure Social History Social History Social History: Surrogate medical decision maker: Sera Rocha, spouse. Code status: Full code. Smoking packs per day: 1.5 Smoking cigarettes per day: 30.0 Years smoked: 10 Smoking pack-years: 15.00 Smoking status: Former smoker Smokeless tobacco user: chewing tobacco Second hand tobacco smoke exposure: Yes Additional smoking assessment comments: quit chewing tobacco in 2022 Alcohol intake: former Substance use: never Substance use type: does not use Do You Feel Safe in your Home?: Yes Lack of Transportation: No Lack of Food: Never True Current Housing: I Have Housing Concerned About Future Housing: No Difficulty Paying Gas/Electric Bills: No Difficulty Paying for Meds: No Currently Unemployed: No Education: Trade/Vocational Certificate Difficulty w/ Childcare or Family Care: No Living arrangements: with family Additional living arrangements comments: Lives with in [place]. Ambulates with a walker. 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 Spiritual care concerns: No Meds Home Medications and Allergies Home Medications ?Medication ?Instructions ?Recorded ?Confirmed ?Type ascorbic acid (vitamin C) 500 mg 500 mg PO DAILY 09/15/21 12/13/24 History tablet vit C 250 mg-vit E 90 mg-zinc 40 1 tablet PO .q12hr 09/15/21 12/13/24 History mg-copper 1 qv-eqehgk-daibnx capsule (PreserVision AREDS-2) vitamin B complex (B 1 tablet PO DAILY 09/15/21 12/13/24 History Complex-Vitamin B12 tablet) acetaminophen 500 mg capsule 1,000 mg PO .q12hr 07/03/22 12/12/24 History cholecalciferol (vitamin D3) 125 50 mcg PO DAILY 07/03/22 12/13/24 History mcg (5,000 unit) capsule coenzyme Q10 100 mg capsule 200 mg PO DAILY 07/03/22 12/13/24 History omega 9-zsi-tis-fish oil 1,200 mg 1 cap PO DAILY 07/03/22 12/13/24 History (144 mg-216 mg) capsule (Fish Oil) sehvqitzrtbm-vtycqhlh-jcyccv tablet 1 tablet PO DAILY 04/24/23 12/13/24 History ferrous sulfate 325 mg (65 mg 325 mg PO DAILY #90 tabs 11/06/23 12/13/24 Rx iron) tablet clopidogrel 75 mg tablet 75 mg PO DAILY #90 tabs 03/25/24 12/12/24 Rx metoprolol succinate 50 mg 50 mg PO DAILY #100 tabs 03/25/24 12/12/24 Rx tablet,extended release 24 hr rosuvastatin 40 mg tablet 40 mg PO DAILY #90 tabs 03/25/24 12/12/24 Rx levetiracetam 1,000 mg tablet 1,000 mg PO Q12H 05/24/24 12/12/24 History pantoprazole 40 mg tablet,delayed 20 mg PO Q12H 05/24/24 12/12/24 History release (Protonix) polyethylene glycol 3350 17 gram 17 g PO QAM #14 ea 05/27/24 12/13/24 Rx oral powder packet (Miralax) calcium carbonate 1,000 mg PO .tid prn 12/13/24 12/13/24 History escitalopram oxalate 10 mg tablet 10 mg PO HS 12/13/24 12/13/24 History apixaban 5 mg tablet (Eliquis) 5 mg PO BID #60 tabs 12/15/24 Rx isosorbide mononitrate 30 mg 30 mg PO QAM #15 tabs 12/15/24 Rx tablet,extended release 24 hr Allergies Allergy/AdvReac Type Severity Reaction Status Date / Time No Known Allergies Allergy Verified 01/03/25 07:42 Vital Signs Vital Signs - 24 hr 02/06/25 06:52 02/06/25 06:59 02/06/25 07:00 Temperature 98.4 F Pulse Rate 93 87 87 Respiratory Rate 26 H 26 H 22 H Blood Pressure 151/76 H 161/78 H Pulse Oximetry 97 97 97 Oxygen Delivery Room Air Oxygen Flow Rate 02/06/25 07:00 02/06/25 07:01 02/06/25 07:15 Temperature Pulse Rate 86 83 87 Respiratory Rate 16 22 H 20 Blood Pressure 161/78 H 149/75 H Pulse Oximetry 97 98 96 Oxygen Delivery Oxygen Flow Rate 02/06/25 07:15 02/06/25 07:16 02/06/25 08:28 Temperature Pulse Rate 84 110 H 78 Respiratory Rate 22 H 23 H Blood Pressure 149/75 H Pulse Oximetry 95 95 Oxygen Delivery Oxygen Flow Rate 02/06/25 08:30 02/06/25 08:32 02/06/25 08:34 Temperature Pulse Rate 81 87 84 Respiratory Rate 18 22 H 21 H Blood Pressure 127/75 127/75 Pulse Oximetry 95 97 94 Oxygen Delivery Oxygen Flow Rate 02/06/25 08:45 02/06/25 08:46 02/06/25 09:13 Temperature Pulse Rate 85 78 82 Respiratory Rate 23 H 22 H Blood Pressure 130/72 Pulse Oximetry 95 Oxygen Delivery Oxygen Flow Rate 02/06/25 09:15 02/06/25 09:16 02/06/25 09:30 Temperature Pulse Rate 82 78 75 Respiratory Rate 21 H 22 H 21 H Blood Pressure 116/66 Pulse Oximetry 94 94 91 Oxygen Delivery Oxygen Flow Rate 02/06/25 09:31 02/06/25 09:45 02/06/25 09:46 Temperature Pulse Rate 71 77 72 Respiratory Rate 27 H 24 H 20 Blood Pressure 98/56 L 96/57 L Pulse Oximetry 91 91 93 Oxygen Delivery Oxygen Flow Rate 02/06/25 10:00 02/06/25 10:01 02/06/25 10:15 Temperature Pulse Rate 66 67 73 Respiratory Rate 21 H 20 21 H Blood Pressure 99/54 L Pulse Oximetry 91 91 90 Oxygen Delivery Oxygen Flow Rate 02/06/25 10:16 02/06/25 10:38 02/06/25 10:45 Temperature Pulse Rate 75 71 Respiratory Rate 17 16 Blood Pressure 103/61 Pulse Oximetry 88 L 90 89 L Oxygen Delivery Oxygen Flow Rate 02/06/25 10:53 02/06/25 10:54 02/06/25 11:01 Temperature Pulse Rate 76 70 Respiratory Rate 17 17 Blood Pressure 109/67 110/70 Pulse Oximetry 96 97 98 Oxygen Delivery Nasal Cannula Oxygen Flow Rate 2 02/06/25 11:16 02/06/25 11:31 02/06/25 11:45 Temperature Pulse Rate 76 76 90 Respiratory Rate 18 18 18 Blood Pressure 112/67 115/66 Pulse Oximetry 99 98 98 Oxygen Delivery Oxygen Flow Rate 02/06/25 11:46 02/06/25 12:16 Temperature Pulse Rate 91 94 Respiratory Rate 20 21 H Blood Pressure 136/75 140/74 Pulse Oximetry 98 97 Oxygen Delivery Oxygen Flow Rate Exam Narrative: GENERAL: Well-developed, well-nourished, and in no acute distress. HEAD: Normocephalic, atraumatic. EYES: PERRLA and EOMI. ENT: Nares clear, no rhinorrhea or epistaxis. NECK: Supple. No midline spine tenderness to palpation, no step-off or crepitus CHEST: Clear to auscultation. No respiratory distress. No wheezes rales or rhonchi HEART: Regular rate and rhythm. No murmur heard. Normal peripheral pulses. ABDOMEN: Soft, nontender, nondistended, normal active bowel sounds. EXTREMITIES: Tender palpation over the left hip without ecchymosis. The left foot is externally rotated. Flexion and left hip limited by pain. Normal range of motion all other extremities. No edema. SKIN: Warm, dry, no rash. NEURO: Alert and oriented x3. No focal deficit. Moving all 4 limbs spontaneously PSYCH: Normal mood and affect. H&P: Results Labs Labs: Short CBC 02/06/25 Range/Units 07:28 WBC 6.1 (4.5-10.0) K/mm3 Hgb 12.2 L (14.0-18.0) g/dL Hct 37.7 L (42.0-52.0) % Plt Count 179 (150-375) k/mm3 BMP 02/06/25 07:28 Sodium 134 L Potassium 4.5 Chloride 99 Carbon Dioxide 27 BUN 13 Creatinine 1.05 Glucose 104 Calcium 9.0 Liver Function 02/06/25 Range/Units 07:28 Total Bilirubin 0.5 (0.2-1.3) mg/dL AST 35 (17-59) U/L ALT 32 (6-50) U/L Alkaline Phosphatase 70 (38-126) U/L Albumin 3.8 (3.5-5.1) g/dL Urine 02/06/25 Range/Units 08:36 Urine Color Yellow (Yellow) Urine Appearance Clear (Clear) Urine pH 6.0 (5.0-9.0) Ur Specific [place] 1.017 (1.001-1.035) Urine Protein 2+ H (Negative) mg/dL Urine Glucose (UA) Negative (Negative) mg/dL Assessment and Plan Assessment and plan (1) Generalized anxiety disorder: Code(s): F41.1 - Generalized anxiety disorder Status: Acute (2) Essential (primary) hypertension: Code(s): I10 - Essential (primary) hypertension Status: Chronic (3) Atherosclerotic heart disease of [place] coronary artery with unspecified angina pectoris: Qualifiers: [place] vs. transplanted heart: [place] heart Qualified Code(s): I25.119 - Atherosclerotic heart disease of [place] coronary artery with unspecified angina pectoris Code(s): I25.119 - Atherosclerotic heart disease of [place] coronary artery with unspecified angina pectoris Status: Acute (4) Chronic a-fib: Code(s): I48.20 - Chronic atrial fibrillation, unspecified Status: Acute (5) Type 2 diabetes mellitus with other diabetic kidney complication: Code(s): E11.29 - Type 2 diabetes mellitus with other diabetic kidney complication Status: Chronic (6) Chronic vascular disorders of intestine: Code(s): K55.1 - Chronic vascular disorders of intestine Status: Acute (7) History of multiple cerebrovascular accidents (CVAs): Code(s): Z86.73 - Personal history of transient ischemic attack (TIA), and cerebral infarction without residual deficits Status: Acute (8) Hx of seizure disorder: Code(s): Z86.69 - Personal history of other diseases of the nervous system and sense organs Status: Acute (9) Syncope and collapse: Code(s): R55 - Syncope and collapse Status: Acute (10) Closed left hip fracture: Code(s): S72.002A - Fracture of unspecified part of neck of left femur, initial encounter for closed fracture Status: Acute Plan 84-year-old male who was brought in by EMS after a fall at his assisted living facility. Patient states he was going to the bathroom when he fell. He does not recall how he fell. Denies any chest pain palpitations or shortness of breath. After a fall he complained of moderate to severe left hip pain. In the ED his vitals were stable. Laboratory workup revealed WBC of 6.1 hemoglobin 12.2 platelet count a 179. Chem panel shows sodium 134 potassium 4.5 chloride 99 bicarbonate 27 BUN 13 creatinine 1 blood glucose 104. At these were normal. Urinalysis was negative for UTI. EKG showed atrial fibrillation with controlled rate with no acute ST-T changes. QTC of 421. CT head showed old infarcts involving the cerebellum right parietal occipital region and leg it occipital lobe. CT cervical spine showed no fracture with severe sepsis cervical spondylosis. Chest x-ray showed no acute cardiopulmonary findings. Small nodular focus right mid lung unchanged. X-ray left pelvis and femur showed possible left femoral cervical fracture but sub optimally visualized. Distal femur intact. Peripheral arterial disease X-ray left hip with subtle thin lucency beneath tibial component medial surface which could suggest loosening. Pelvic CT shows and confirms subcapital fracture of left femoral neck with moderate osteoarthritis of the hips. Left inguinal hernia containing fat noted as well. He is admitted in this setting for further treatment. Left hip fracture orthopedics consulted Fall Possible syncope Ischemic cardiomyopathy with preserved ejection fraction. EF 12/23 5:60 to 65% Atrial fibrillation Coronary artery disease status post stents to RCA 08/2021 recent cardiac catheterization 12/14/2024: Left main 10% stenosis proximal body. Lad 20-30% InStent restenoses. Diagonal branch had several areas of 50% stenosis remainder of the LAD had diffuse 10% stenosis. LCX diffuse calcific 20-30% stenosis. Ramus intermedius calcified 20-30% stenosis RCA 50-60% InStent restenoses at the ostium. 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 Recurrent falls Seizure disorder History of GI bleed and gastritis/peptic ulcer disease Diverticulosis Code status do not resuscitate DVT prophylaxis on Eliquis which will be held Hospitalist [facility] Advance Care Plan I have confirmed that the patient's Advanced Care Plan is present, code status is documented, or surrogate decision maker is listed in patient medical record.: Yes Medication Reconciliation I have utilized all available resources to obtain, update and review the patients current medications (includes all prescriptions, OTC, herbals, cannabis, and nutritional supplements).: Yes
[2025-02-06] MEDS: MORPHINE SULFATE (*CRX) 4 MG/ML INJ IV PUSH ×3 (15:14→21:54)
[2025-02-06] MEDS: AMITRIPTYLINE HCL 10 MG TABLET PO (17:38)
[2025-02-06] MEDS: ACETAMINOPHEN 500 MG TABLET PO (21:45)
[2025-02-06] MEDS: QUEtiapine FUMARATE 12.5 MG TABLET PO (21:46)
[2025-02-06] MEDS: OPTI-GEN TAB 1 TABLET PO (21:46)
[2025-02-06] MEDS: busPIRone HCL 2.5 MG TABLET 7.5 MG PO (21:46)
[2025-02-06] MEDS: PANTOPRAZOLE SOD SESQUIHYDRATE 20 MG TAB PO (21:47)
[2025-02-07] VITALS (20 sets, daily range): BP systolic 77–165; BP diastolic 34–83; PULSE 74–101; RESP 14–20; TEMP 36.3–37; O2SAT 90–99
[2025-02-07 05:24] LABS: Hematocrit 39.4 % (42.0-52.0); Hemoglobin 12.7 g/dL (14.0-18.0); Immature Granulocyte Percent A 0.4 % (0-0.5); Lymphocytes Absolute Auto 0.99 K/mm3 (0.9-3.2); Mean Corpuscular HGB Conc 32.2 g/dl (32-36); Mean Corpuscular Hemoglobin 31.3 pg (26-34); Mean Corpuscular Volume 97.0 fl (80-100); Nucleated Red Blood Cells Absolute Auto 0.000 K/mm3 (0.0-0.012); Nucleated Red Blood Cells Perc 0.0 % (0.0-0.2); Platelet Count Result 175 k/mm3 (150-375); Red Blood Count 4.06 M/mm3 (4.6-6.20); White Blood Count 8.0 K/mm3 (4.5-10.0)
[2025-02-07 06:20] LABS: Anion Gap 6 mmol/L (4-12); Blood Urea Nitrogen 21 mg/dL (9-20); Calcium 8.9 mg/dL (8.4-10.2); Carbon Dioxide 27 mmol/L (22-30); Chloride 98 mmol/L (98-107); Estimated CRCL calculation 36 ml/min; Estimated Glomerular Filt Rate 47; Glucose 123 mg/dL (65-110); Potassium 5.0 mmol/L (3.4-5.0); Sodium 131 mmol/L (137-145)
--- NOTE | 2025-02-07 07:43 | PM.CNOR ---
Assessment and Plan Assessment and plan (1) Closed subcapital fracture of neck of femur: Qualifiers: Encounter type: initial encounter Laterality: left Qualified Code(s): S72.012A - Unspecified intracapsular fracture of left femur, initial encounter for closed fracture Code(s): S72.019A - Unspecified intracapsular fracture of unspecified femur, initial encounter for closed fracture Status: Acute Plan 84 yr old male with Left Hip Femoral Neck Fracture. Plan Left Hip Vinod-arthroplasty. Phone call to SASHA Rocha (Son) discussing the risks benefits alternatives and complications which include but are not limited to infection, nerve injury, blood vessel injury, dislocation and he agrees to proceed. History of Present Illness HPI Consult date: 02/07/25 Chief complaint: Left Hip Femoral Neck Fracture Narrative: 84-year-old male who resident at an assisted living facility, reports falling attempting to go to bathroom, landing on to Left Hip. Seen in ED with xrays showing Left Hip Femoral Neck Fracture. Left Total Knee replacement xrays show no evidence of shantell-prosthetic fracture. [facility] Past Medical History Medical History Anemia History of GI diverticular bleed (07/2023) Diverticulitis Chronic GERD Atrial fibrillation Ischemic cardiomyopathy Coronary artery disease Hyperlipidemia Diet-controlled diabetes mellitus Cerebrovascular accident with no reported residual deficits Chronic vascular disorders of intestine Essential (primary) hypertension Cerebral atherosclerosis Epilepsy, unspecified, not intractable, without status epilepticus Generalized anxiety disorder Glaucoma Surgical History Surgical History History of cardiac catheterization History of intravascular stent placement (2020) for superior mesenteric artery stenosis History of coronary artery stent placement x4 History of cholecystectomy (1999) History of open reduction and internal fixation (ORIF) procedure (04/2023) repair of right hip fracture History of bilateral knee replacement left 2010 right 2020 History of cataract extraction Family History Family History Father Cerebrovascular accident Sibling Breast cancer Sister Diabetes mellitus Kidney failure Social History Social History Social History: Surrogate medical decision maker: Sera Rocha, spouse. Code status: Full code. Smoking packs per day: 1.5 Smoking cigarettes per day: 30.0 Years smoked: 10 Smoking pack-years: 15.00 Smoking status: Former smoker Tobacco type: cigarettes Smokeless tobacco user: chewing tobacco Second hand tobacco smoke exposure: Yes Additional smoking assessment comments: quit chewing tobacco in 2022 Alcohol intake: former Substance use: never Substance use type: does not use Do You Feel Safe in your Home?: Yes Lack of Transportation: No Lack of Food: Never True Current Housing: I Have Housing Concerned About Future Housing: No Difficulty Paying Gas/Electric Bills: No Difficulty Paying for Meds: No Currently Unemployed: No Education: Trade/Vocational Certificate Difficulty w/ Childcare or Family Care: No Living arrangements: with family Additional living arrangements comments: Lives with in [place]. Ambulates with a walker. 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 Spiritual care concerns: No Meds Home Medications and Allergies Home Medications ?Medication ?Instructions ?Recorded ?Confirmed ?Type ascorbic acid (vitamin C) 500 mg 500 mg PO DAILY 09/15/21 02/06/25 History tablet vit C 250 mg-vit E 90 mg-zinc 40 1 tablet PO .q12hr 09/15/21 02/06/25 History mg-copper 1 dp-toqkva-jkutzp capsule (PreserVision AREDS-2) vitamin B complex (B 1 tablet PO DAILY 09/15/21 02/06/25 History Complex-Vitamin B12 tablet) acetaminophen 500 mg capsule 500 mg PO .q12hr 07/03/22 02/06/25 History cholecalciferol (vitamin D3) 125 50 mcg PO DAILY 07/03/22 02/06/25 History mcg (5,000 unit) capsule coenzyme Q10 100 mg capsule 200 mg PO DAILY 07/03/22 02/06/25 History omega 0-jwo-lbe-fish oil 1,200 mg 1 cap PO DAILY 07/03/22 02/06/25 History (144 mg-216 mg) capsule (Fish Oil) ferrous sulfate 325 mg (65 mg 325 mg PO DAILY #90 tabs 11/06/23 02/06/25 Rx iron) tablet clopidogrel 75 mg tablet 75 mg PO DAILY #90 tabs 03/25/24 02/06/25 Rx metoprolol succinate 50 mg 50 mg PO DAILY #100 tabs 03/25/24 02/06/25 Rx tablet,extended release 24 hr rosuvastatin 40 mg tablet 40 mg PO DAILY #90 tabs 03/25/24 02/06/25 Rx levetiracetam 1,000 mg tablet 1,000 mg PO Q12H 05/24/24 02/06/25 History pantoprazole 40 mg tablet,delayed 20 mg PO Q12H 05/24/24 02/06/25 History release (Protonix) polyethylene glycol 3350 17 gram 17 g PO QAM #14 ea 05/27/24 02/06/25 Rx oral powder packet (Miralax) escitalopram oxalate 10 mg tablet 20 mg PO DAILY 12/13/24 02/06/25 History apixaban 5 mg tablet (Eliquis) 5 mg PO BID #60 tabs 12/15/24 02/06/25 Rx isosorbide mononitrate 30 mg 30 mg PO QAM #15 tabs 12/15/24 02/06/25 Rx tablet,extended release 24 hr amitriptyline 10 mg tablet 10 mg PO BID 02/06/25 02/06/25 History buspirone 7.5 mg tablet 7.5 mg PO BID 02/06/25 02/06/25 History Allergies Allergy/AdvReac Type Severity Reaction Status Date / Time No Known Allergies Allergy Verified 01/03/25 07:42 Vital Signs Vital Signs - 24 hr 02/06/25 08:28 02/06/25 08:30 02/06/25 08:32 Temperature Pulse Rate 78 81 87 Respiratory Rate 18 22 H Blood Pressure 127/75 Pulse Oximetry 95 95 97 Oxygen Delivery Oxygen Flow Rate 02/06/25 08:34 02/06/25 08:45 02/06/25 08:46 Temperature Pulse Rate 84 85 78 Respiratory Rate 21 H 23 H 22 H Blood Pressure 127/75 130/72 Pulse Oximetry 94 95 Oxygen Delivery Oxygen Flow Rate 02/06/25 09:13 02/06/25 09:15 02/06/25 09:16 Temperature Pulse Rate 82 82 78 Respiratory Rate 21 H 22 H Blood Pressure 116/66 Pulse Oximetry 94 94 Oxygen Delivery Oxygen Flow Rate 02/06/25 09:30 02/06/25 09:31 02/06/25 09:45 Temperature Pulse Rate 75 71 77 Respiratory Rate 21 H 27 H 24 H Blood Pressure 98/56 L Pulse Oximetry 91 91 91 Oxygen Delivery Oxygen Flow Rate 02/06/25 09:46 02/06/25 10:00 02/06/25 10:01 Temperature Pulse Rate 72 66 67 Respiratory Rate 20 21 H 20 Blood Pressure 96/57 L 99/54 L Pulse Oximetry 93 91 91 Oxygen Delivery Oxygen Flow Rate 02/06/25 10:15 02/06/25 10:16 02/06/25 10:38 Temperature Pulse Rate 73 75 Respiratory Rate 21 H 17 Blood Pressure 103/61 Pulse Oximetry 90 88 L 90 Oxygen Delivery Oxygen Flow Rate 02/06/25 10:45 02/06/25 10:53 02/06/25 10:54 Temperature Pulse Rate 71 76 Respiratory Rate 16 17 Blood Pressure 109/67 Pulse Oximetry 89 L 96 97 Oxygen Delivery Nasal Cannula Oxygen Flow Rate 2 02/06/25 11:01 02/06/25 11:16 02/06/25 11:31 Temperature Pulse Rate 70 76 76 Respiratory Rate 17 18 18 Blood Pressure 110/70 112/67 115/66 Pulse Oximetry 98 99 98 Oxygen Delivery Oxygen Flow Rate 02/06/25 11:45 02/06/25 11:46 02/06/25 12:16 Temperature Pulse Rate 90 91 94 Respiratory Rate 18 20 21 H Blood Pressure 136/75 140/74 Pulse Oximetry 98 98 97 Oxygen Delivery Oxygen Flow Rate 02/06/25 15:39 02/06/25 15:40 02/06/25 18:17 Temperature 36.4 C L Pulse Rate 77 Respiratory Rate 20 Blood Pressure 124/64 Pulse Oximetry 99 98 93 Oxygen Delivery Nasal Cannula Room Air Oxygen Flow Rate 2 02/06/25 20:00 02/06/25 22:00 02/07/25 06:00 Temperature 36.6 C 36.6 C Pulse Rate 70 78 Respiratory Rate 20 18 18 Blood Pressure 137/59 L 103/50 L Pulse Oximetry 93 90 90 Oxygen Delivery Room Air Oxygen Flow Rate Results Labs 02/07/25 04:52 02/07/25 04:52 Labs: Abnormal lab results 02/06/25 02/06/25 02/07/25 Range/Units 07:28 08:36 04:52 RBC 4.06 L (4.6-6.20) M/mm3 Hgb 12.7 L (14.0-18.0) g/dL Hct 39.4 L (42.0-52.0) % Lymph % (Auto) 12.4 L (18.3-44.2) % [place] % (Auto) 14.3 H (2.6-8.5) % Eos % (Auto) 5.5 H (0-4.4) % [place] # (Auto) 1.1 H (0.1-0.6) K/mm3 Eos # (Auto) 0.4 H (0-0.3) K/mm3 Sodium 134 L 131 L (137-145) mmol/L BUN 21 H (9-20) mg/dL Creatinine 1.43 H (0.7-1.3) mg/dL Estimated GFR 47 L (59 - ) Glucose 123 H (65-110) mg/dL Urine Protein 2+ H (Negative) mg/dL Leukocyte Esterase Rfl Trace H (Negative) QUAN/UL H & H 02/06/25 02/07/25 Range/Units 07:28 04:52 Hgb 12.2 L 12.7 L (14.0-18.0) g/dL Hct 37.7 L 39.4 L (42.0-52.0) % All other labs normal. Diagnostic results Hip x-ray: image reviewed Knee x-ray: image reviewed
--- NOTE | 2025-02-07 07:50 | WPDANESEPPF ---
Anes - Initial Pre Proc Eval Procedure: Operation Date: 02/07/25 07:00 Proposed Procedures p Bipolar Hip Replacement - Jared Melendrez MD Date/Time: 02/07/25 07:50 Surgeon: Edel Lozano MD Pre Op Diagnosis: Left Hip Femoral Neck Fracture Patient Data Age: 84 Gender: M Height: 1.8 m Weight: 81.2 kg Last Vital Signs Temp 97.9 F 02/07/25 06:00 Pulse 78 02/07/25 06:00 Resp 18 02/07/25 06:00 BP 103/50 L 02/07/25 06:00 Pulse Ox 90 02/07/25 06:00 O2 Del Method Room Air 02/06/25 20:00 O2 Flow Rate 2 02/06/25 15:40 Allergies Allergy/AdvReac Type Severity Reaction Status Date / Time No Known Allergies Allergy Verified 01/03/25 07:42 Home Medications ?Medication ?Instructions ?Recorded ?Confirmed ?Type ascorbic acid (vitamin C) 500 mg 500 mg PO DAILY 09/15/21 02/06/25 History tablet vit C 250 mg-vit E 90 mg-zinc 40 1 tablet PO .q12hr 09/15/21 02/06/25 History mg-copper 1 oq-rfnwad-cjczcn capsule (PreserVision AREDS-2) vitamin B complex (B 1 tablet PO DAILY 09/15/21 02/06/25 History Complex-Vitamin B12 tablet) acetaminophen 500 mg capsule 500 mg PO .q12hr 07/03/22 02/06/25 History cholecalciferol (vitamin D3) 125 50 mcg PO DAILY 07/03/22 02/06/25 History mcg (5,000 unit) capsule coenzyme Q10 100 mg capsule 200 mg PO DAILY 07/03/22 02/06/25 History omega 3-amr-oak-fish oil 1,200 mg 1 cap PO DAILY 07/03/22 02/06/25 History (144 mg-216 mg) capsule (Fish Oil) ferrous sulfate 325 mg (65 mg 325 mg PO DAILY #90 tabs 11/06/23 02/06/25 Rx iron) tablet clopidogrel 75 mg tablet 75 mg PO DAILY #90 tabs 03/25/24 02/06/25 Rx metoprolol succinate 50 mg 50 mg PO DAILY #100 tabs 03/25/24 02/06/25 Rx tablet,extended release 24 hr rosuvastatin 40 mg tablet 40 mg PO DAILY #90 tabs 03/25/24 02/06/25 Rx levetiracetam 1,000 mg tablet 1,000 mg PO Q12H 05/24/24 02/06/25 History pantoprazole 40 mg tablet,delayed 20 mg PO Q12H 05/24/24 02/06/25 History release (Protonix) polyethylene glycol 3350 17 gram 17 g PO QAM #14 ea 05/27/24 02/06/25 Rx oral powder packet (Miralax) escitalopram oxalate 10 mg tablet 20 mg PO DAILY 12/13/24 02/06/25 History apixaban 5 mg tablet (Eliquis) 5 mg PO BID #60 tabs 12/15/24 02/06/25 Rx isosorbide mononitrate 30 mg 30 mg PO QAM #15 tabs 12/15/24 02/06/25 Rx tablet,extended release 24 hr amitriptyline 10 mg tablet 10 mg PO BID 02/06/25 02/06/25 History buspirone 7.5 mg tablet 7.5 mg PO BID 02/06/25 02/06/25 History Laboratory Tests 02/06/25 02/06/25 02/07/25 07:28 08:36 04:52 WBC 8.0 K/mm3 (4.5-10.0) RBC 4.06 L M/mm3 (4.6-6.20) Hgb 12.7 L g/dL (14.0-18.0) Hct 39.4 L % (42.0-52.0) MCV 97.0 fl (80-100) MCH 31.3 pg (26-34) MCHC 32.2 g/dl (32-36) RDW 12.7 % (11.5-14.5) Plt Count 175 k/mm3 (150-375) MPV 9.0 fl (7.4-10.4) Immature Gran % (Auto) 0.4 % (0-0.5) Neut % (Auto) 66.6 % (45.5-73.1) Lymph % (Auto) 12.4 L % (18.3-44.2) [place] % (Auto) 14.3 H % (2.6-8.5) Eos % (Auto) 5.5 H % (0-4.4) Baso % (Auto) 0.8 % (0.2-1.2) Lymph # (Auto) 0.99 K/mm3 (0.9-3.2) [place] # (Auto) 1.1 H K/mm3 (0.1-0.6) Eos # (Auto) 0.4 H K/mm3 (0-0.3) Baso # (Auto) 0.1 K/mm3 (0.0-0.1) Abs Immat Gran (auto) 0.03 K/mm3 (0.00-0.031) Absolute Neuts (auto) 5.3 K/mm3 (1.3-6.7) Absolute Nucleated RBC 0.000 K/mm3 (0.0-0.012) Nucleated RBC % 0.0 % (0.0-0.2) Sodium 134 L mmol/L 131 L mmol/L (137-145) (137-145) Potassium 4.5 mmol/L 5.0 mmol/L (3.4-5.0) (3.4-5.0) Chloride 99 mmol/L 98 mmol/L (98-107) (98-107) Carbon Dioxide 27 mmol/L 27 mmol/L (22-30) (22-30) Anion Gap 8 mmol/L 6 mmol/L (4-12) (4-12) BUN 13 mg/dL 21 H mg/dL (9-20) (9-20) Creatinine 1.05 mg/dL 1.43 H mg/dL (0.7-1.3) (0.7-1.3) Estim Creat Clear Calc 49 ml/min 36 ml/min Estimated GFR > 60 47 L (59 - ) (59 - ) Glucose 104 mg/dL 123 H mg/dL (65-110) (65-110) Calcium 9.0 mg/dL 8.9 mg/dL (8.4-10.2) (8.4-10.2) Magnesium 1.9 mg/dL (1.6-2.3) Total Bilirubin 0.5 mg/dL (0.2-1.3) AST 35 U/L (17-59) ALT 32 U/L (6-50) Alkaline Phosphatase 70 U/L (38-126) Total Protein 6.4 g/dL (6.3-8.2) Albumin 3.8 g/dL (3.5-5.1) Urine Color Yellow (Yellow) Urine Appearance Clear (Clear) Urine pH 6.0 (5.0-9.0) Ur Specific [place] 1.017 (1.001-1.035) Urine Protein 2+ H mg/dL (Negative) Urine Glucose (UA) Negative mg/dL (Negative) Urine Ketones Negative mg/dL (Negative) Ur Blood (Man) Negative (Negative) Urine Nitrate Negative (Negative) Urine Bilirubin Negative (Negative) Urine Urobilinogen 1.0 mg/dL (<2.0) Leukocyte Esterase Rfl Trace H QUAN/UL (Negative) Urine RBC 0-2 /hpf (0-2) Urine WBC 0-5 /hpf (0-3) Ur Squamous Epith Cells None seen /hpf (Few) Urine Bacteria None seen /hpf Urine Casts 0-2 Patient hx anesthesia problems: none Family hx anesthesia problems: none Results Review: All pre-operative results and documents have been reviewed as part of the pre-operative evaluation. [facility] Past Medical History Medical History Anemia History of GI diverticular bleed (07/2023) Diverticulitis Chronic GERD Atrial fibrillation Ischemic cardiomyopathy Coronary artery disease Hyperlipidemia Diet-controlled diabetes mellitus Cerebrovascular accident with no reported residual deficits Chronic vascular disorders of intestine Essential (primary) hypertension Cerebral atherosclerosis Epilepsy, unspecified, not intractable, without status epilepticus Generalized anxiety disorder Glaucoma Surgical History Surgical History History of cardiac catheterization History of intravascular stent placement (2020) for superior mesenteric artery stenosis History of coronary artery stent placement x4 History of cholecystectomy (1999) History of open reduction and internal fixation (ORIF) procedure (04/2023) repair of right hip fracture History of bilateral knee replacement left 2010 right 2020 History of cataract extraction Family History Family History Father Cerebrovascular accident Sibling Breast cancer Sister Diabetes mellitus Kidney failure Social History Social History Social History: Surrogate medical decision maker: Sera Rocha, spouse. Code status: Full code. Smoking packs per day: 1.5 Smoking cigarettes per day: 30.0 Years smoked: 10 Smoking pack-years: 15.00 Smoking status: Former smoker Tobacco type: cigarettes Smokeless tobacco user: chewing tobacco Second hand tobacco smoke exposure: Yes Additional smoking assessment comments: quit chewing tobacco in 2022 Alcohol intake: former Substance use: never Substance use type: does not use Do You Feel Safe in your Home?: Yes Lack of Transportation: No Lack of Food: Never True Current Housing: I Have Housing Concerned About Future Housing: No Difficulty Paying Gas/Electric Bills: No Difficulty Paying for Meds: No Currently Unemployed: No Education: Trade/Vocational Certificate Difficulty w/ Childcare or Family Care: No Living arrangements: with family Additional living arrangements comments: Lives with in [place]. Ambulates with a walker. 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 Spiritual care concerns: No Anes - Eval Final PreProcedure Day of Procedure 02/07/25 07:50 Patient weight: normal Lungs: normal air movement Airway: Mallampati scale class II Neurological: alert and oriented (to person, place, not time. ) Last oral intake: >/= 8 hours ASA classification: III Emergent: no Anesthetic plan: proceed Anesthesia type and monitoring: general ETT and standard monitoring Results Review: All pre-operative results and documents have been reviewed as part of the pre-operative evaluation. Chronic illnesses, reviewed. Pt w hx of ischemic cardiomyopathy w PTCA x 4, w nml LVEF by ECHO 12/2024 w nml LVEF, no , chr a fib, hyperlipidemia. GFR slighlty dec this am, K 5.0. Informed Consent: The patient's anesthetic plan and its attendant risks and benefits were discussed with the patient/family/POA. Questions were solicited and answers provided to the satisfaction of the patient/family/POA.
[2025-02-07] MEDS: ceFAZolin 2 GM in SODIUM CHLORIDE 0.9% IV 50 ML 100 ML IVPB ×2 (07:57→15:13)
--- NOTE | 2025-02-07 08:00 | P.HPUP_ITS ---
History and Physical Update Update Date/Time: 02/07/25 08:00 History and Physical has been reviewed, including an updated exam of the patient. There are NO changes in the patient's condition. Risks, benefits, and alternatives have been discussed and questions answered. Patient agrees to proceed with procedure. 84 yr old male with Left Hip Femoral Neck Fracture. Plan Left Hip Vinod- arthroplasty. Phone call to ARMANDOFabiano Rocha (Son) discussing the risks benefits alternatives and complications which include but are not limited to infection, nerve injury, blood vessel injury, dislocation and he agrees to proc
[2025-02-07] MEDS: LACTATED RINGERS 1,000 ML 30 ML IV CONT (09:32)
--- NOTE | 2025-02-07 09:46 | W.PM.PROC2 ---
Procedure Note - Detailed Date of Procedure 02/07/25 Pre-op Diagnosis Left Hip Femoral Neck Fracture Post-op Diagnosis Same Procedure Performed Left Hip Vinod-arthroplasty Surgeon Jared Melendrez MD Anesthesia General Indications Left Hip Hemiarthroplasty Findings Left Hip Femoral Neck Fracture displaced Description of Procedure The LEFT Hip was marked with an indelible marker in the holding area, and the patient was again interviewed, and the risks, benefits, alternatives, and complications of a LEFTHEMIARTHROPLASTY (Partial Hip Replacement) was discussed with the patient Son SASHA Rocha by phone. The risks include, but are not limited to, infection, nerve injury, blood vessel injury, DVT, limb discrepancy, dislocation, he agree to proceed. ? Patient was transported to the operating room and placed in the?supine position?for induction of?general anesthesia. ? After induction, the patient was repositioned into the?lateral decubitus position (LEFT side up). ? Padding?applied to all bony prominences;?gel pad?placed under contralateral extremity to protect the superficial peroneal nerve;?axillary roll?positioned to protect the axillary nerve. ? The?left hip?was prepped and draped in standard sterile fashion. ? A?posterior approach?was utilized. ? Skin incision?made over the greater trochanter; dissection carried to identify and incise the?iliotibial (IT) band. ? Charnley retractor?placed;?sciatic nerve?identified and protected throughout. ? Bursa?over the lateral hip removed;?piriformis tendon?identified, tagged, and detached from its femoral insertion. ? Hip capsule?identified;?T-shaped capsulotomy?performed; superior and inferior capsule margins tagged with sutures. ? Femoral neck osteotomy?performed approximately?1.5 cm proximal to the lesser trochanter. ? Debridement of the?greater trochanteric area?performed;?femoral head?removed using a corkscrew, measured for bipolar component sizing. ? Femoral canal?prepared sequentially with?box osteotome,?canal finder, and?serial broaching?to appropriate size. ? Calcar planer?used to smooth femoral neck cut. ? Trial components?inserted; reduction performed demonstrating: ? Implant placed?in identical orientation to trials;?stability and limb length?confirmed intraoperatively. ? Surgical site?copiously irrigated?multiple times throughout procedure. ? Posterior repair?performed: capsule and piriformis reattached to the posterior greater trochanter through drill holes. ? Hemostasis achieved. ? IT band closed?with interrupted Ethibond sutures;?subcutaneous tissue?closed with Vicryl;?skin closed?with narinder. ? Sterile dressing?applied. ? Patient?transferred to recovery room in stable condition Implants #7 Femoral Implant Luis Accolade 2, 51mm bipolar, Standard Offset with 0 neck length Estimated Blood Loss 200 Urine Output 350 Drains No Packing No Pathology None sent Complications None Condition Stable Disposition PACU
[2025-02-07] MEDS: ISOSORBIDE MONONITRATE 30 MG TAB.ER.24H PO (12:51)
[2025-02-07] MEDS: VITAMIN B COMPLEX CAPSULE 1 CAP PO (12:51)
[2025-02-07] MEDS: ESCITALOPRAM OXALATE 10 MG TABLET 20 MG PO (12:51)
[2025-02-07] MEDS: busPIRone HCL 2.5 MG TABLET 7.5 MG PO ×2 (12:51→20:18)
[2025-02-07] MEDS: ACETAMINOPHEN 500 MG TABLET PO ×2 (12:51→20:18)
[2025-02-07] MEDS: METOPROLOL SUCCINATE EXT REL 50 MG TABCR PO (12:52)
[2025-02-07] MEDS: FERROUS SULFATE 325 MG TABLET BY MOUTH (12:52)
[2025-02-07] MEDS: OMEGA 3 POLYUNSAT FATTY ACIDS 1 GM CAP PO (12:52)
[2025-02-07] MEDS: ASCORBIC ACID 500 MG TABLET PO (12:52)
[2025-02-07] MEDS: CLOPIDOGREL BISULFATE 75 MG TABLET PO (12:52)
[2025-02-07] MEDS: ROSUVASTATIN 20 MG TABLET 40 MG PO (12:53)
[2025-02-07] MEDS: CHOLECALCIFEROL (VITAMIN D3) 25 MCG (1,000 UNITS) TABLET 50 MCG PO (12:53)
--- NOTE | 2025-02-07 14:31 | PM.IMPN ---
Progress Note: A&P Assessment and Plan (1) Generalized anxiety disorder: Code(s): F41.1 - Generalized anxiety disorder Status: Acute (2) Essential (primary) hypertension: Code(s): I10 - Essential (primary) hypertension Status: Chronic (3) Atherosclerotic heart disease of [place] coronary artery with unspecified angina pectoris: Qualifiers: [place] vs. transplanted heart: [place] heart Qualified Code(s): I25.119 - Atherosclerotic heart disease of [place] coronary artery with unspecified angina pectoris Code(s): I25.119 - Atherosclerotic heart disease of [place] coronary artery with unspecified angina pectoris Status: Acute (4) Chronic a-fib: Code(s): I48.20 - Chronic atrial fibrillation, unspecified Status: Acute (5) Type 2 diabetes mellitus with other diabetic kidney complication: Code(s): E11.29 - Type 2 diabetes mellitus with other diabetic kidney complication Status: Chronic (6) Chronic vascular disorders of intestine: Code(s): K55.1 - Chronic vascular disorders of intestine Status: Acute (7) History of multiple cerebrovascular accidents (CVAs): Code(s): Z86.73 - Personal history of transient ischemic attack (TIA), and cerebral infarction without residual deficits Status: Acute (8) Hx of seizure disorder: Code(s): Z86.69 - Personal history of other diseases of the nervous system and sense organs Status: Acute (9) Syncope and collapse: Code(s): R55 - Syncope and collapse Status: Acute (10) Closed left hip fracture: Code(s): S72.002A - Fracture of unspecified part of neck of left femur, initial encounter for closed fracture Status: Acute Plan 84-year-old male who was brought in by EMS after a fall at his assisted living facility. Patient states he was going to the bathroom when he fell. He does not recall how he fell. Denies any chest pain palpitations or shortness of breath. After a fall he complained of moderate to severe left hip pain. In the ED his vitals were stable. Laboratory workup revealed WBC of 6.1 hemoglobin 12.2 platelet count a 179. Chem panel shows sodium 134 potassium 4.5 chloride 99 bicarbonate 27 BUN 13 creatinine 1 blood glucose 104. At these were normal. Urinalysis was negative for UTI. EKG showed atrial fibrillation with controlled rate with no acute ST-T changes. QTC of 421. CT head showed old infarcts involving the cerebellum right parietal occipital region and leg it occipital lobe. CT cervical spine showed no fracture with severe sepsis cervical spondylosis. Chest x-ray showed no acute cardiopulmonary findings. Small nodular focus right mid lung unchanged. X-ray left pelvis and femur showed possible left femoral cervical fracture but sub optimally visualized. Distal femur intact. Peripheral arterial disease X-ray left hip with subtle thin lucency beneath tibial component medial surface which could suggest loosening. Pelvic CT shows and confirms subcapital fracture of left femoral neck with moderate osteoarthritis of the hips. Left inguinal hernia containing fat noted as well. He is admitted in this setting for further treatment. Left hip fracture orthopedics consulted. Status post left hip arthroplasty 02/07/2025. PT OT to see Fall Possible syncope Ischemic cardiomyopathy with preserved ejection fraction. EF 12/23 5:60 to 65% Atrial fibrillation Coronary artery disease status post stents to RCA 08/2021 recent cardiac catheterization 12/14/2024: Left main 10% stenosis proximal body. Lad 20-30% InStent restenoses. Diagonal branch had several areas of 50% stenosis remainder of the LAD had diffuse 10% stenosis. LCX diffuse calcific 20-30% stenosis. Ramus intermedius calcified 20-30% stenosis RCA 50-60% InStent restenoses at the ostium. 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 resume Postop when okay with Orthopedics Subjective Date/time seen: 02/07/25 14:31 Interval history: No overnight events. Patient underwent left hip surgery this Morning. Working with therapy this afternoon. no chest pain or shortness of breath. Review of Systems Review of Systems: All systems reviewed & are unremarkable except as noted in HPI and below Exam Narrative: GENERAL: Well-developed, well-nourished, and in no acute distress. HEAD: Normocephalic, atraumatic. EYES: PERRLA and EOMI. ENT: Nares clear, no rhinorrhea or epistaxis. NECK: Supple. No midline spine tenderness to palpation, no step-off or crepitus CHEST: Clear to auscultation. No respiratory distress. No wheezes rales or rhonchi HEART: Regular rate and rhythm. No murmur heard. Normal peripheral pulses. ABDOMEN: Soft, nontender, nondistended, normal active bowel sounds. EXTREMITIES: Left hip with surgical dressing which is clean dry and intact SKIN: Warm, dry, no rash. NEURO: Alert and oriented x3. No focal deficit. Moving all 4 limbs spontaneously PSYCH: Normal mood and affect. Objective Data Vital Signs Vital Signs: Vital Signs - 24 hr 02/06/25 15:39 02/06/25 15:40 02/06/25 18:17 Temperature 97.5 F L Pulse Rate 77 Respiratory Rate 20 Blood Pressure 124/64 Pulse Oximetry 99 98 93 Oxygen Delivery Nasal Cannula Room Air Oxygen Flow Rate 2 02/06/25 20:00 02/06/25 22:00 02/07/25 06:00 Temperature 97.9 F 97.9 F Pulse Rate 70 78 Respiratory Rate 20 18 18 Blood Pressure 137/59 L 103/50 L Pulse Oximetry 93 90 90 Oxygen Delivery Room Air Oxygen Flow Rate 02/07/25 09:32 02/07/25 09:45 02/07/25 10:00 Temperature 98.2 F Pulse Rate 74 92 93 Respiratory Rate 14 14 16 Blood Pressure 104/55 L 129/67 165/64 H Pulse Oximetry 92 96 99 Oxygen Delivery Simple Face Mask Simple Face Mask Simple Face Mask Oxygen Flow Rate 8 8 10 02/07/25 10:15 02/07/25 10:30 02/07/25 10:45 Temperature Pulse Rate 94 95 84 Respiratory Rate 16 16 15 Blood Pressure 136/75 137/63 139/66 Pulse Oximetry 93 96 96 Oxygen Delivery Nasal Cannula Nasal Cannula Nasal Cannula Oxygen Flow Rate 2 2 2 02/07/25 11:00 02/07/25 11:16 02/07/25 11:31 Temperature 97.5 F L 97.5 F L Pulse Rate 85 86 89 Respiratory Rate 16 18 18 Blood Pressure 124/72 127/61 117/53 L Pulse Oximetry 96 95 97 Oxygen Delivery Nasal Cannula Oxygen Flow Rate 2 02/07/25 11:45 02/07/25 12:01 02/07/25 12:52 Temperature 97.5 F L Pulse Rate 92 101 H Respiratory Rate 18 Blood Pressure 126/56 L Pulse Oximetry 95 99 Oxygen Delivery Room Air Oxygen Flow Rate 02/07/25 13:01 Temperature 98.0 F Pulse Rate 85 Respiratory Rate 18 Blood Pressure 138/83 Pulse Oximetry 92 Oxygen Delivery Oxygen Flow Rate Intake/Output Intake/Output: Intake & Output 02/04/25 02/05/25 02/06/25 02/07/25 23:59 23:59 23:59 23:59 Intake Total 270 390 Output Total 50 700 Balance 220 -310 Meds/Results Medications: Active Medications Generic Name Dose Route Start Last Admin Trade Name Freq PRN Reason Stop Dose Admin Acetaminophen 500 mg 02/06/25 21:00 02/07/25 12:51 Acetaminophen 500 Mg Tablet PO 500 mg Q12HR YOHANA Administration Amitriptyline HCl 10 mg 02/06/25 17:00 02/07/25 12:54 Amitriptyline Hcl 10 Mg Tablet PO Not Given BID [facility] Ascorbic Acid 500 mg 02/07/25 09:00 02/07/25 12:52 Ascorbic Acid 500 Mg Tablet PO 500 mg DAILY YOHANA Administration Buspirone HCl 7.5 mg 02/06/25 21:00 02/07/25 12:51 Buspirone Hcl 2.5 Mg Tablet PO 7.5 mg Q12HR YOHANA Administration Clopidogrel Bisulfate 75 mg 02/07/25 09:00 02/07/25 12:52 Clopidogrel Bisulfate 75 Mg Tablet PO 75 mg DAILY YOHANA Administration Escitalopram Oxalate 20 mg 02/07/25 09:00 02/07/25 12:51 Escitalopram Oxalate 10 Mg Tablet PO 20 mg DAILY YOHANA Administration Ferrous Sulfate 325 mg 02/07/25 09:00 02/07/25 12:52 Ferrous Sulfate 325 Mg Tablet BY MOUTH 325 mg DAILY YOHANA Administration Fish Oil 1 gm 02/07/25 09:00 02/07/25 12:52 [place] 3 Polyunsat Fatty Acids 1 Gm Cap PO 1 gm DAILY YOHANA Administration Hydromorphone HCl 0.5 mg 02/07/25 09:41 Hydromorphone Hcl Inj (*Crx) 1 Mg/Ml Syr IV PUSH Q2H PRN Breakthrough Pain Rated 4-6 or NPO Hydroxyzine Pamoate 50 mg 02/07/25 09:41 Hydroxyzine Pamoate 25 Mg Capsule PO Q4H PRN Itching Cefazolin Sodium 2 gm/ Sodium 50 mls @ 100 mls/hr 02/07/25 16:00 Chloride IVPB 02/08/25 08:29 Q8H [facility] Isosorbide Mononitrate 30 mg 02/07/25 09:00 02/07/25 12:51 Isosorbide Mononitrate 30 Mg Tab.Er.24h PO 30 mg QAM YOHANA Administration Levetiracetam 1,000 mg 02/06/25 21:00 02/07/25 12:51 Levetiracetam 500 Mg Tablet PO 1,000 mg Q12HR YOHANA Administration Metoprolol Succinate 50 mg 02/07/25 09:00 02/07/25 12:52 Metoprolol Succinate Ext Rel 50 Mg Tabcr PO 50 mg DAILY YOHANA Administration Morphine Sulfate 4 mg 02/06/25 11:03 02/06/25 21:54 Morphine Sulfate (*Crx) 4 Mg/Ml Inj IV PUSH 4 mg Q2H PRN Administration Pain Rated 7-10 Multivitamins/Minerals 1 tablet 02/06/25 21:00 02/07/25 12:53 Opti-Gen Tab PO Not Given Q12HR YOHANA Naloxone HCl 0.1 mg 02/07/25 09:41 Naloxone Hcl 0.4 Mg/Ml Vial IV PUSH Q2M PRN Opiate Reversal Nonformulary 1 each 02/06/25 16:01 Nutritional XX 02/07/25 16:00 Supplement - PRN PRN Coenzyme Q10 100 Mg PROTOCOL Capsule Pantoprazole Sodium 20 mg 02/06/25 21:00 02/07/25 12:53 Pantoprazole Sod Sesquihydrate 20 Mg Tab PO Not Given Q12HR [facility] Polyethylene Glycol 17 gm 02/07/25 09:00 02/07/25 12:53 Polyethylene Glycol 3350 17 Gm Powd.Pack PO Not Given QAM [facility] Quetiapine Fumarate 12.5 mg 02/06/25 18:32 02/06/25 21:46 Quetiapine Fumarate 12.5 Mg Tablet PO 12.5 mg HS PRN Administration Delirium Rosuvastatin Calcium 40 mg 02/07/25 09:00 02/07/25 12:53 Rosuvastatin 20 Mg Tablet PO 40 mg DAILY YOHANA Administration Senna/Docusate Sodium 2 tab 02/07/25 17:00 Senna/Docusate Sodium Tablet PO BID YOHANA Vitamin B Complex 1 cap 02/07/25 09:00 02/07/25 12:51 Vitamin B Complex Capsule PO 1 cap DAILY [facility] Administration Vitamin D 50 mcg 02/07/25 09:00 02/07/25 12:53 Cholecalciferol (Vitamin D3) 25 Mcg (1,000 Units) Tablet PO 50 mcg DAILY YOHANA Administration Radiology Results: ITS Impressions Head CT 02/06/25 07:57 IMPRESSION: 1. Old infarcts involving the cerebellum, right parietal-occipital region, and left occipital lobe. Cervical Spine CT 02/06/25 07:59 IMPRESSION: 1. No fracture. 2. Severe cervical spondylosis. Chest X-Ray 02/06/25 08:19 IMPRESSION: 1. No acute cardiopulmonary findings given portable technique. 2. Small nodular focus right midlung unchanged. Continued attention on future x-rays. Alternatively, CT chest in [address] 02/06/25 09:16 IMPRESSION: 1. Subcapital fracture of left femoral neck. 2. Moderate osteoarthritis of the hips. 3. Left inguinal hernia containing fat. Labs Labs: Laboratory Results - last 24 hr 02/07/25 02/07/25 04:52 07:22 WBC 8.0 RBC 4.06 L Hgb 12.7 L Hct 39.4 L MCV 97.0 MCH 31.3 MCHC 32.2 RDW 12.7 Plt Count 175 MPV 9.0 Immature Gran % (Auto) 0.4 Neut % (Auto) 66.6 Lymph % (Auto) 12.4 L [place] % (Auto) 14.3 H Eos % (Auto) 5.5 H Baso % (Auto) 0.8 Lymph # (Auto) 0.99 [place] # (Auto) 1.1 H Eos # (Auto) 0.4 H Baso # (Auto) 0.1 Abs Immat Gran (auto) 0.03 Absolute Neuts (auto) 5.3 Absolute Nucleated RBC 0.000 Nucleated RBC % 0.0 Sodium 131 L Potassium 5.0 Chloride 98 Carbon Dioxide 27 Anion Gap 6 BUN 21 H Creatinine 1.43 H Estim Creat Clear Calc 36 Estimated GFR 47 L Glucose 123 H Calcium 8.9 Blood Type A Positive Antibody Screen Negative
--- NOTE | 2025-02-07 14:45 | PC.NURSE ---
Patient was doing great after surgery. Vitals were stable and they were communicating. Patient worked with therapy and sat in chair. RN then went to hang antibiotics and found patient unresponsive and hypotensive. RN immediately called MD Ernst. Faith ordered bolus of 500 mL and assisted RN and tech getting patient back to bed. RN then began bolus and patient began to wake up and become more alert. Vitals charted.
[2025-02-07] MEDS: SODIUM CHLORIDE 0.9% IV 500 ML IV CONT (15:33)
[2025-02-07] MEDS: SODIUM CHLORIDE 0.9% IV 1,000 ML 75 ML IV CONT (17:33)
[2025-02-07] MEDS: AMITRIPTYLINE HCL 10 MG TABLET PO (17:34)
[2025-02-07] MEDS: SENNA/DOCUSATE SODIUM TABLET 2 TAB PO (17:34)
[2025-02-07] MEDS: OPTI-GEN TAB 1 TABLET PO (20:19)
[2025-02-07] MEDS: PANTOPRAZOLE SOD SESQUIHYDRATE 20 MG TAB PO (20:20)
[2025-02-08] MEDS: ceFAZolin 2 GM in SODIUM CHLORIDE 0.9% IV 50 ML 100 ML IVPB ×2 (00:43→10:36)
[2025-02-08 03:26] VITALS: BP 109/61; PULSE 106; RESP 20; TEMP 36.9; O2SAT 99
[2025-02-08] MEDS: MORPHINE SULFATE (*CRX) 4 MG/ML INJ IV PUSH (05:12)
[2025-02-08 05:43] LABS: Hematocrit 28.2 % (42.0-52.0); Hemoglobin 9.0 g/dL (14.0-18.0); Immature Granulocyte Percent A 0.9 % (0-0.5); Lymphocytes Absolute Auto 0.77 K/mm3 (0.9-3.2); Mean Corpuscular HGB Conc 31.9 g/dl (32-36); Mean Corpuscular Hemoglobin 31.1 pg (26-34); Mean Corpuscular Volume 97.6 fl (80-100); Nucleated Red Blood Cells Absolute Auto 0.000 K/mm3 (0.0-0.012); Nucleated Red Blood Cells Perc 0.0 % (0.0-0.2); Platelet Count Result 139 k/mm3 (150-375); Red Blood Count 2.89 M/mm3 (4.6-6.20); White Blood Count 9.5 K/mm3 (4.5-10.0)
[2025-02-08 06:08] LABS: Anion Gap 7 mmol/L (4-12); Blood Urea Nitrogen 32 mg/dL (9-20); Calcium 8.2 mg/dL (8.4-10.2); Carbon Dioxide 24 mmol/L (22-30); Chloride 99 mmol/L (98-107); Estimated CRCL calculation 39 ml/min; Estimated Glomerular Filt Rate 52; Glucose 134 mg/dL (65-110); Potassium 4.8 mmol/L (3.4-5.0); Sodium 130 mmol/L (137-145)
--- NOTE | 2025-02-08 08:30 | P.PNAN_ITS ---
Anes - Prog Note Post-Op Date/Time: 02/08/25 08:30 Cardiovascular status: normal Respiratory status: normal Airway patency: baseline Mental status: baseline Post-Op hydration status: normal Vital Signs: Last Vital Signs Temp 36.9 C 02/08/25 03:26 Pulse 106 H 02/08/25 03:26 Resp 20 02/08/25 03:26 BP 109/61 02/08/25 03:26 Pulse Ox 99 02/08/25 03:26 O2 Del Method Nasal Cannula 02/07/25 20:00 O2 Flow Rate 2 02/07/25 20:00 Pain Score (VAS): 2 I/O: Intake & Output 02/07/25 02/08/25 02/08/25 23:59 07:59 15:59 Intake Total 510 250 Output Total 300 300 Balance 210 -50 Laboratory Tests 02/08/25 05:04 02/08/25 05:04 02/08/25 05:04 WBC 9.5 RBC 2.89 L Hgb 9.0 L D Hct 28.2 L MCV 97.6 MCH 31.1 MCHC 31.9 L RDW 12.7 Plt Count 139 L MPV 9.4 Immature Gran % (Auto) 0.9 H Neut % (Auto) 75.0 H Lymph % (Auto) 8.1 L [place] % (Auto) 15.0 H Eos % (Auto) 0.6 Baso % (Auto) 0.4 Lymph # (Auto) 0.77 L [place] # (Auto) 1.4 H Eos # (Auto) 0.1 Baso # (Auto) 0.0 Abs Immat Gran (auto) 0.09 H Absolute Neuts (auto) 7.1 H Absolute Nucleated RBC 0.000 Nucleated RBC % 0.0 Sodium 130 L Potassium 4.8 Chloride 99 Carbon Dioxide 24 Anion Gap 7 BUN 32 H D Creatinine 1.32 H Estim Creat Clear Calc 39 Estimated GFR 52 L Glucose 134 H Calcium 8.2 L Post-procedural complaints: none Patient Feedback: Patient satisfied with anesthetic care.
[2025-02-08 08:42] VITALS: BP 128/58; PULSE 85; RESP 16; TEMP 37.1; O2SAT 100
[2025-02-08 10:40] VITALS: O2SAT 100
[2025-02-08] MEDS: FERROUS SULFATE 325 MG TABLET BY MOUTH (10:40)
[2025-02-08] MEDS: OMEGA 3 POLYUNSAT FATTY ACIDS 1 GM CAP PO (10:40)
[2025-02-08] MEDS: CLOPIDOGREL BISULFATE 75 MG TABLET PO (10:40)
[2025-02-08 10:41] VITALS: PULSE 85
[2025-02-08] MEDS: PANTOPRAZOLE SOD SESQUIHYDRATE 20 MG TAB PO ×2 (10:41→20:35)
[2025-02-08] MEDS: METOPROLOL SUCCINATE EXT REL 50 MG TABCR PO (10:41)
[2025-02-08] MEDS: ROSUVASTATIN 20 MG TABLET 40 MG PO (10:41)
[2025-02-08] MEDS: CHOLECALCIFEROL (VITAMIN D3) 25 MCG (1,000 UNITS) TABLET 50 MCG PO (10:41)
[2025-02-08] MEDS: busPIRone HCL 2.5 MG TABLET 7.5 MG PO ×2 (10:41→20:34)
[2025-02-08] MEDS: AMITRIPTYLINE HCL 10 MG TABLET PO ×2 (10:41→17:46)
[2025-02-08] MEDS: ACETAMINOPHEN 500 MG TABLET PO ×2 (10:42→20:34)
[2025-02-08] MEDS: VITAMIN B COMPLEX CAPSULE 1 CAP PO (10:42)
[2025-02-08] MEDS: ESCITALOPRAM OXALATE 10 MG TABLET 20 MG PO (10:42)
[2025-02-08] MEDS: SENNA/DOCUSATE SODIUM TABLET 2 TAB PO ×2 (10:42→17:46)
[2025-02-08] MEDS: OPTI-GEN TAB 1 TABLET PO ×2 (10:43→20:34)
[2025-02-08] MEDS: ASCORBIC ACID 500 MG TABLET PO (10:43)
[2025-02-08 11:26] VITALS: BP 131/61; PULSE 82; RESP 16; TEMP 36.8; O2SAT 99
--- NOTE | 2025-02-08 12:42 | PC.NURSE ---
On 02/08/25, the student, Yue Phillips, provided care and completed [facility] documentation on this patient. I have reviewed the student's documentation and agree with the findings.
[2025-02-08 13:14] VITALS: BP 125/64; PULSE 74; RESP 16; TEMP 36.4; O2SAT 100
--- NOTE | 2025-02-08 13:17 | PM.IMPN ---
Progress Note: A&P Assessment and Plan (1) Generalized anxiety disorder: Code(s): F41.1 - Generalized anxiety disorder Status: Acute (2) Essential (primary) hypertension: Code(s): I10 - Essential (primary) hypertension Status: Chronic (3) Atherosclerotic heart disease of [place] coronary artery with unspecified angina pectoris: Qualifiers: [place] vs. transplanted heart: [place] heart Qualified Code(s): I25.119 - Atherosclerotic heart disease of [place] coronary artery with unspecified angina pectoris Code(s): I25.119 - Atherosclerotic heart disease of [place] coronary artery with unspecified angina pectoris Status: Acute (4) Chronic a-fib: Code(s): I48.20 - Chronic atrial fibrillation, unspecified Status: Acute (5) Type 2 diabetes mellitus with other diabetic kidney complication: Code(s): E11.29 - Type 2 diabetes mellitus with other diabetic kidney complication Status: Chronic (6) Chronic vascular disorders of intestine: Code(s): K55.1 - Chronic vascular disorders of intestine Status: Acute (7) History of multiple cerebrovascular accidents (CVAs): Code(s): Z86.73 - Personal history of transient ischemic attack (TIA), and cerebral infarction without residual deficits Status: Acute (8) Hx of seizure disorder: Code(s): Z86.69 - Personal history of other diseases of the nervous system and sense organs Status: Acute (9) Syncope and collapse: Code(s): R55 - Syncope and collapse Status: Acute (10) Closed left hip fracture: Code(s): S72.002A - Fracture of unspecified part of neck of left femur, initial encounter for closed fracture Status: Acute Plan 84-year-old male who was brought in by EMS after a fall at his assisted living facility. Patient states he was going to the bathroom when he fell. He does not recall how he fell. Denies any chest pain palpitations or shortness of breath. After a fall he complained of moderate to severe left hip pain. In the ED his vitals were stable. Laboratory workup revealed WBC of 6.1 hemoglobin 12.2 platelet count a 179. Chem panel shows sodium 134 potassium 4.5 chloride 99 bicarbonate 27 BUN 13 creatinine 1 blood glucose 104. At these were normal. Urinalysis was negative for UTI. EKG showed atrial fibrillation with controlled rate with no acute ST-T changes. QTC of 421. CT head showed old infarcts involving the cerebellum right parietal occipital region and leg it occipital lobe. CT cervical spine showed no fracture with severe sepsis cervical spondylosis. Chest x-ray showed no acute cardiopulmonary findings. Small nodular focus right mid lung unchanged. X-ray left pelvis and femur showed possible left femoral cervical fracture but sub optimally visualized. Distal femur intact. Peripheral arterial disease X-ray left hip with subtle thin lucency beneath tibial component medial surface which could suggest loosening. Pelvic CT shows and confirms subcapital fracture of left femoral neck with moderate osteoarthritis of the hips. Left inguinal hernia containing fat noted as well. He is admitted in this setting for further treatment. Left hip fracture orthopedics consulted. Status post left hip arthroplasty 02/07/2025. PT OT to see Postoperative mild hypertension hold Imdur . received IV fluids. Postoperative anemia with no signs of bleeding. Will continue to monitor. Fall Possible syncope Ischemic cardiomyopathy with preserved ejection fraction. EF 12/23 5:60 to 65% Atrial fibrillation Coronary artery disease status post stents to RCA 08/2021 recent cardiac catheterization 12/14/2024: Left main 10% stenosis proximal body. Lad 20-30% InStent restenoses. Diagonal branch had several areas of 50% stenosis remainder of the LAD had diffuse 10% stenosis. LCX diffuse calcific 20-30% stenosis. Ramus intermedius calcified 20-30% stenosis RCA 50-60% InStent restenoses at the ostium. 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 resume Postop when okay with Orthopedics Subjective Date/time seen: 02/08/25 13:17 Interval history: brief hypotension yesterday evening after therapy. Feels little better. Still mild lightheadedness reported. Blood pressure is improved. Pain controlled Review of Systems Review of Systems: All systems reviewed & are unremarkable except as noted in HPI and below Exam Narrative: GENERAL: Well-developed, well-nourished, and in no acute distress. HEAD: Normocephalic, atraumatic. EYES: PERRLA and EOMI. ENT: Nares clear, no rhinorrhea or epistaxis. NECK: Supple. No midline spine tenderness to palpation, no step-off or crepitus CHEST: Clear to auscultation. No respiratory distress. No wheezes rales or rhonchi HEART: Regular rate and rhythm. No murmur heard. Normal peripheral pulses. ABDOMEN: Soft, nontender, nondistended, normal active bowel sounds. EXTREMITIES: Left hip with surgical dressing which is clean dry and intact SKIN: Warm, dry, no rash. NEURO: Alert and oriented x3. No focal deficit. Moving all 4 limbs spontaneously PSYCH: Normal mood and affect. Objective Data Vital Signs Vital Signs: Vital Signs - 24 hr 02/07/25 14:01 02/07/25 14:45 02/07/25 15:00 Temperature Pulse Rate Respiratory Rate Blood Pressure 77/34 L 110/55 L Pulse Oximetry Oxygen Delivery Room Air Oxygen Flow Rate 02/07/25 16:44 02/07/25 19:26 02/07/25 20:00 Temperature 97.4 F L 98.3 F Pulse Rate 86 75 Respiratory Rate 18 20 Blood Pressure 119/54 L 124/63 Pulse Oximetry 93 98 96 Oxygen Delivery Nasal Cannula Oxygen Flow Rate 2 02/07/25 23:26 02/08/25 03:26 02/08/25 08:28 Temperature 98.6 F 98.4 F Pulse Rate 100 106 H Respiratory Rate 20 20 Blood Pressure 100/57 L 109/61 Pulse Oximetry 95 99 Oxygen Delivery Nasal Cannula Oxygen Flow Rate 2 02/08/25 08:42 02/08/25 10:40 02/08/25 10:41 Temperature 98.8 F Pulse Rate 85 85 Respiratory Rate 16 Blood Pressure 128/58 L Pulse Oximetry 100 100 Oxygen Delivery Nasal Cannula Oxygen Flow Rate 2 02/08/25 11:26 02/08/25 13:14 Temperature 98.2 F 97.6 F Pulse Rate 82 74 Respiratory Rate 16 16 Blood Pressure 131/61 125/64 Pulse Oximetry 99 100 Oxygen Delivery Oxygen Flow Rate Intake/Output Intake/Output: Intake & Output 02/05/25 02/06/25 02/07/25 02/08/25 23:59 23:59 23:59 23:59 Intake Total 270 950 780 Output Total 50 1000 300 Balance 220 -50 480 Meds/Results Medications: Active Medications Generic Name Dose Route Start Last Admin Trade Name Freq PRN Reason Stop Dose Admin Acetaminophen 500 mg 02/06/25 21:00 02/08/25 10:42 Acetaminophen 500 Mg Tablet PO 500 mg Q12HR YOHANA Administration Amitriptyline HCl 10 mg 02/06/25 17:00 02/08/25 10:41 Amitriptyline Hcl 10 Mg Tablet PO 10 mg BID YOHANA Administration Ascorbic Acid 500 mg 02/07/25 09:00 02/08/25 10:43 Ascorbic Acid 500 Mg Tablet PO 500 mg DAILY YOHANA Administration Buspirone HCl 7.5 mg 02/06/25 21:00 02/08/25 10:41 Buspirone Hcl 2.5 Mg Tablet PO 7.5 mg Q12HR YOHANA Administration Clopidogrel Bisulfate 75 mg 02/07/25 09:00 02/08/25 10:40 Clopidogrel Bisulfate 75 Mg Tablet PO 75 mg DAILY YOHANA Administration Escitalopram Oxalate 20 mg 02/07/25 09:00 02/08/25 10:42 Escitalopram Oxalate 10 Mg Tablet PO 20 mg DAILY YOHANA Administration Ferrous Sulfate 325 mg 02/07/25 09:00 02/08/25 10:40 Ferrous Sulfate 325 Mg Tablet BY MOUTH 325 mg DAILY YOHANA Administration Fish Oil 1 gm 02/07/25 09:00 02/08/25 10:40 [place] 3 Polyunsat Fatty Acids 1 Gm Cap PO 1 gm DAILY YOHANA Administration Hydromorphone HCl 0.5 mg 02/07/25 09:41 Hydromorphone Hcl Inj (*Crx) 1 Mg/Ml Syr IV PUSH Q2H PRN Breakthrough Pain Rated 4-6 or NPO Hydroxyzine Pamoate 50 mg 02/07/25 09:41 Hydroxyzine Pamoate 25 Mg Capsule PO Q4H PRN Itching Isosorbide Mononitrate 30 mg 02/07/25 09:00 02/07/25 12:51 Isosorbide Mononitrate 30 Mg Tab.Er.24h PO 30 mg On Hold: 02/07/25 15:35 QAM YOHANA Administration Levetiracetam 1,000 mg 02/06/25 21:00 02/08/25 10:42 Levetiracetam 500 Mg Tablet PO 1,000 mg Q12HR YOHANA Administration Metoprolol Succinate 50 mg 02/07/25 09:00 02/08/25 10:41 Metoprolol Succinate Ext Rel 50 Mg Tabcr PO 50 mg DAILY YOHANA Administration Morphine Sulfate 4 mg 02/06/25 11:03 02/08/25 05:12 Morphine Sulfate (*Crx) 4 Mg/Ml Inj IV PUSH 4 mg Q2H PRN Administration Pain Rated 7-10 Multivitamins/Minerals 1 tablet 02/06/25 21:00 02/08/25 10:43 Opti-Gen Tab PO 1 tablet Q12HR YOHANA Administration Naloxone HCl 0.1 mg 02/07/25 09:41 Naloxone Hcl 0.4 Mg/Ml Vial IV PUSH Q2M PRN Opiate Reversal Pantoprazole Sodium 20 mg 02/06/25 21:00 02/08/25 10:41 Pantoprazole Sod Sesquihydrate 20 Mg Tab PO 20 mg Q12HR YOHANA Administration Polyethylene Glycol 17 gm 02/07/25 09:00 02/08/25 10:43 Polyethylene Glycol 3350 17 Gm Powd.Pack PO 17 gm QAM YOHANA Administration Quetiapine Fumarate 12.5 mg 02/06/25 18:32 02/06/25 21:46 Quetiapine Fumarate 12.5 Mg Tablet PO 12.5 mg HS PRN Administration Delirium Rosuvastatin Calcium 40 mg 02/07/25 09:00 02/08/25 10:41 Rosuvastatin 20 Mg Tablet PO 40 mg DAILY YOHANA Administration Senna/Docusate Sodium 2 tab 02/07/25 17:00 02/08/25 10:42 Senna/Docusate Sodium Tablet PO 2 tab BID YOHANA Administration Vitamin B Complex 1 cap 02/07/25 09:00 02/08/25 10:42 Vitamin B Complex Capsule PO 1 cap DAILY YOHANA Administration Vitamin D 50 mcg 02/07/25 09:00 02/08/25 10:41 Cholecalciferol (Vitamin D3) 25 Mcg (1,000 Units) Tablet PO 50 mcg DAILY YOHANA Administration Radiology Results: ITS Impressions Head CT 02/06/25 07:57 IMPRESSION: 1. Old infarcts involving the cerebellum, right parietal-occipital region, and left occipital lobe. Cervical Spine CT 02/06/25 07:59 IMPRESSION: 1. No fracture. 2. Severe cervical spondylosis. Chest X-Ray 02/06/25 08:19 IMPRESSION: 1. No acute cardiopulmonary findings given portable technique. 2. Small nodular focus right midlung unchanged. Continued attention on future x-rays. Alternatively, CT chest in [address] 02/06/25 09:16 IMPRESSION: 1. Subcapital fracture of left femoral neck. 2. Moderate osteoarthritis of the hips. 3. Left inguinal hernia containing fat. Labs Labs: Laboratory Results - last 24 hr 02/08/25 05:04 WBC 9.5 RBC 2.89 L Hgb 9.0 L D Hct 28.2 L MCV 97.6 MCH 31.1 MCHC 31.9 L RDW 12.7 Plt Count 139 L MPV 9.4 Immature Gran % (Auto) 0.9 H Neut % (Auto) 75.0 H Lymph % (Auto) 8.1 L [place] % (Auto) 15.0 H Eos % (Auto) 0.6 Baso % (Auto) 0.4 Lymph # (Auto) 0.77 L [place] # (Auto) 1.4 H Eos # (Auto) 0.1 Baso # (Auto) 0.0 Abs Immat Gran (auto) 0.09 H Absolute Neuts (auto) 7.1 H Absolute Nucleated RBC 0.000 Nucleated RBC % 0.0 Sodium 130 L Potassium 4.8 Chloride 99 Carbon Dioxide 24 Anion Gap 7 BUN 32 H D Creatinine 1.32 H Estim Creat Clear Calc 39 Estimated GFR 52 L Glucose 134 H Calcium 8.2 L
[2025-02-08] MEDS: APIXABAN 5 MG TABLET PO (17:46)
[2025-02-09] MEDS: MORPHINE SULFATE (*CRX) 4 MG/ML INJ IV PUSH (00:35)
[2025-02-09 05:28] VITALS: BP 133/48; PULSE 83; RESP 12; TEMP 36.9; O2SAT 99
[2025-02-09 07:42] LABS: Hematocrit 26.6 % (42.0-52.0); Hemoglobin 8.6 g/dL (14.0-18.0); Immature Granulocyte Percent A 0.5 % (0-0.5); Lymphocytes Absolute Auto 0.58 K/mm3 (0.9-3.2); Mean Corpuscular HGB Conc 32.3 g/dl (32-36); Mean Corpuscular Hemoglobin 31.3 pg (26-34); Mean Corpuscular Volume 96.7 fl (80-100); Nucleated Red Blood Cells Absolute Auto 0.000 K/mm3 (0.0-0.012); Nucleated Red Blood Cells Perc 0.0 % (0.0-0.2); Platelet Count Result 121 k/mm3 (150-375); Red Blood Count 2.75 M/mm3 (4.6-6.20); White Blood Count 7.9 K/mm3 (4.5-10.0)
[2025-02-09 08:02] LABS: Alanine Aminotransferase 16 U/L (6-50); Albumin Level 3.0 g/dL (3.5-5.1); Alkaline Phosphatase 62 U/L (38-126); Anion Gap 5 mmol/L (4-12); Aspartate Amino Transferase 40 U/L (17-59); Bilirubin,Total 0.6 mg/dL (0.2-1.3); Blood Urea Nitrogen 26 mg/dL (9-20); Calcium 8.3 mg/dL (8.4-10.2); Carbon Dioxide 24 mmol/L (22-30); Chloride 100 mmol/L (98-107); Estimated CRCL calculation 49 ml/min; Estimated Glomerular Filt Rate > 60; Glucose 112 mg/dL (65-110); Magnesium 1.9 mg/dL (1.6-2.3); Potassium 4.6 mmol/L (3.4-5.0); Sodium 129 mmol/L (137-145); Total Protein 5.6 g/dL (6.3-8.2)
[2025-02-09] MEDS: OPTI-GEN TAB 1 TABLET PO ×2 (09:16→20:56)
[2025-02-09] MEDS: AMITRIPTYLINE HCL 10 MG TABLET PO ×2 (09:17→16:16)
[2025-02-09] MEDS: CLOPIDOGREL BISULFATE 75 MG TABLET PO (09:17)
[2025-02-09] MEDS: PANTOPRAZOLE SOD SESQUIHYDRATE 20 MG TAB PO ×2 (09:17→20:57)
[2025-02-09] MEDS: FERROUS SULFATE 325 MG TABLET BY MOUTH (09:17)
[2025-02-09] MEDS: ESCITALOPRAM OXALATE 10 MG TABLET 20 MG PO (09:17)
[2025-02-09] MEDS: ACETAMINOPHEN 500 MG TABLET PO ×2 (09:18→20:56)
[2025-02-09] MEDS: CHOLECALCIFEROL (VITAMIN D3) 25 MCG (1,000 UNITS) TABLET 50 MCG PO (09:18)
[2025-02-09] MEDS: ROSUVASTATIN 20 MG TABLET 40 MG PO (09:18)
[2025-02-09 09:20] VITALS: PULSE 84
[2025-02-09] MEDS: METOPROLOL SUCCINATE EXT REL 50 MG TABCR PO (09:20)
[2025-02-09] MEDS: busPIRone HCL 2.5 MG TABLET 7.5 MG PO ×2 (09:20→20:57)
[2025-02-09 09:21] VITALS: RESP 16; O2SAT 99
[2025-02-09] MEDS: APIXABAN 5 MG TABLET PO ×2 (09:21→16:16)
[2025-02-09] MEDS: VITAMIN B COMPLEX CAPSULE 1 CAP PO (09:21)
[2025-02-09] MEDS: ASCORBIC ACID 500 MG TABLET PO (09:21)
[2025-02-09] MEDS: OMEGA 3 POLYUNSAT FATTY ACIDS 1 GM CAP PO (09:21)
[2025-02-09] MEDS: SENNA/DOCUSATE SODIUM TABLET 2 TAB PO ×2 (09:21→16:16)
[2025-02-09 14:08] VITALS: BP 111/58; PULSE 84; RESP 14; TEMP 36.4; O2SAT 100
--- NOTE | 2025-02-09 14:46 | PM.IMPN ---
Progress Note: A&P Assessment and Plan (1) Generalized anxiety disorder: Code(s): F41.1 - Generalized anxiety disorder Status: Acute (2) Essential (primary) hypertension: Code(s): I10 - Essential (primary) hypertension Status: Chronic (3) Atherosclerotic heart disease of [place] coronary artery with unspecified angina pectoris: Qualifiers: [place] vs. transplanted heart: [place] heart Qualified Code(s): I25.119 - Atherosclerotic heart disease of [place] coronary artery with unspecified angina pectoris Code(s): I25.119 - Atherosclerotic heart disease of [place] coronary artery with unspecified angina pectoris Status: Acute (4) Chronic a-fib: Code(s): I48.20 - Chronic atrial fibrillation, unspecified Status: Acute (5) Type 2 diabetes mellitus with other diabetic kidney complication: Code(s): E11.29 - Type 2 diabetes mellitus with other diabetic kidney complication Status: Chronic (6) Chronic vascular disorders of intestine: Code(s): K55.1 - Chronic vascular disorders of intestine Status: Acute (7) History of multiple cerebrovascular accidents (CVAs): Code(s): Z86.73 - Personal history of transient ischemic attack (TIA), and cerebral infarction without residual deficits Status: Acute (8) Hx of seizure disorder: Code(s): Z86.69 - Personal history of other diseases of the nervous system and sense organs Status: Acute (9) Syncope and collapse: Code(s): R55 - Syncope and collapse Status: Acute (10) Closed left hip fracture: Code(s): S72.002A - Fracture of unspecified part of neck of left femur, initial encounter for closed fracture Status: Acute Plan 84-year-old male who was brought in by EMS after a fall at his assisted living facility. Patient states he was going to the bathroom when he fell. He does not recall how he fell. Denies any chest pain palpitations or shortness of breath. After a fall he complained of moderate to severe left hip pain. In the ED his vitals were stable. Laboratory workup revealed WBC of 6.1 hemoglobin 12.2 platelet count a 179. Chem panel shows sodium 134 potassium 4.5 chloride 99 bicarbonate 27 BUN 13 creatinine 1 blood glucose 104. At these were normal. Urinalysis was negative for UTI. EKG showed atrial fibrillation with controlled rate with no acute ST-T changes. QTC of 421. CT head showed old infarcts involving the cerebellum right parietal occipital region and leg it occipital lobe. CT cervical spine showed no fracture with severe sepsis cervical spondylosis. Chest x-ray showed no acute cardiopulmonary findings. Small nodular focus right mid lung unchanged. X-ray left pelvis and femur showed possible left femoral cervical fracture but sub optimally visualized. Distal femur intact. Peripheral arterial disease X-ray left hip with subtle thin lucency beneath tibial component medial surface which could suggest loosening. Pelvic CT shows and confirms subcapital fracture of left femoral neck with moderate osteoarthritis of the hips. Left inguinal hernia containing fat noted as well. He is admitted in this setting for further treatment. Left hip fracture orthopedics consulted. Status post left hip arthroplasty 02/07/2025. PT OT to see Postoperative mild hypertension hold Imdur . received IV fluids. Postoperative anemia with no signs of bleeding. Will continue to monitor. Fall Possible syncope Ischemic cardiomyopathy with preserved ejection fraction. EF 12/23 5:60 to 65% Atrial fibrillation Coronary artery disease status post stents to RCA 08/2021 recent cardiac catheterization 12/14/2024: Left main 10% stenosis proximal body. Lad 20-30% InStent restenoses. Diagonal branch had several areas of 50% stenosis remainder of the LAD had diffuse 10% stenosis. LCX diffuse calcific 20-30% stenosis. Ramus intermedius calcified 20-30% stenosis RCA 50-60% InStent restenoses at the ostium. 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 resume Postop when okay with Orthopedics Disposition: Needs SNF placement. Care coordination on board Subjective Date/time seen: 02/09/25 14:46 Interval history: No overnight events. Pain control. No nausea vomiting shortness of breath or chest pain Review of Systems Review of Systems: All systems reviewed & are unremarkable except as noted in HPI and below Exam Narrative: GENERAL: Well-developed, well-nourished, and in no acute distress. HEAD: Normocephalic, atraumatic. EYES: PERRLA and EOMI. ENT: Nares clear, no rhinorrhea or epistaxis. NECK: Supple. No midline spine tenderness to palpation, no step-off or crepitus CHEST: Clear to auscultation. No respiratory distress. No wheezes rales or rhonchi HEART: Regular rate and rhythm. No murmur heard. Normal peripheral pulses. ABDOMEN: Soft, nontender, nondistended, normal active bowel sounds. EXTREMITIES: Left hip with surgical dressing which is clean dry and intact SKIN: Warm, dry, no rash. NEURO: Alert and oriented x3. No focal deficit. Moving all 4 limbs spontaneously PSYCH: Normal mood and affect. Objective Data Vital Signs Vital Signs: Vital Signs - 24 hr 02/09/25 05:28 02/09/25 09:20 02/09/25 09:21 Temperature 98.4 F Pulse Rate 83 84 Respiratory Rate 12 16 Blood Pressure 133/48 L Pulse Oximetry 99 99 Oxygen Delivery Nasal Cannula Oxygen Flow Rate 2 02/09/25 14:08 Temperature 97.6 F Pulse Rate 84 Respiratory Rate 14 Blood Pressure 111/58 L Pulse Oximetry 100 Oxygen Delivery Oxygen Flow Rate Intake/Output Intake/Output: Intake & Output 02/06/25 02/07/25 02/08/25 02/09/25 23:59 23:59 23:59 23:59 Intake Total 958 167 1689 685 Output Total 50 1000 700 600 Balance 220 -50 320 85 Meds/Results Medications: Active Medications Generic Name Dose Route Start Last Admin Trade Name [place] PRN Reason Stop Dose Admin Acetaminophen 500 mg 02/06/25 21:00 02/09/25 09:18 Acetaminophen 500 Mg Tablet PO 500 mg Q12HR YOHANA Administration Amitriptyline HCl 10 mg 02/06/25 17:00 02/09/25 09:17 Amitriptyline Hcl 10 Mg Tablet PO 10 mg BID YOHANA Administration Apixaban 5 mg 02/08/25 17:00 02/09/25 09:21 Apixaban 5 Mg Tablet PO 5 mg BID YOHANA Administration Ascorbic Acid 500 mg 02/07/25 09:00 02/09/25 09:21 Ascorbic Acid 500 Mg Tablet PO 500 mg DAILY YOHANA Administration Buspirone HCl 7.5 mg 02/06/25 21:00 02/09/25 09:20 Buspirone Hcl 2.5 Mg Tablet PO 7.5 mg Q12HR YOHANA Administration Clopidogrel Bisulfate 75 mg 02/07/25 09:00 02/09/25 09:17 Clopidogrel Bisulfate 75 Mg Tablet PO 75 mg DAILY YOHANA Administration Escitalopram Oxalate 20 mg 02/07/25 09:00 02/09/25 09:17 Escitalopram Oxalate 10 Mg Tablet PO 20 mg DAILY YOHANA Administration Ferrous Sulfate 325 mg 02/07/25 09:00 02/09/25 09:17 Ferrous Sulfate 325 Mg Tablet BY MOUTH 325 mg DAILY YOHANA Administration Fish Oil 1 gm 02/07/25 09:00 02/09/25 09:21 [place] 3 Polyunsat Fatty Acids 1 Gm Cap PO 1 gm DAILY YOHANA Administration Hydromorphone HCl 0.5 mg 02/07/25 09:41 Hydromorphone Hcl Inj (*Crx) 1 Mg/Ml Syr IV PUSH Q2H PRN Breakthrough Pain Rated 4-6 or NPO Hydroxyzine Pamoate 50 mg 02/07/25 09:41 Hydroxyzine Pamoate 25 Mg Capsule PO Q4H PRN Itching Isosorbide Mononitrate 30 mg 02/07/25 09:00 02/07/25 12:51 Isosorbide Mononitrate 30 Mg Tab.Er.24h PO 30 mg On Hold: 02/07/25 15:35 QAM YOHANA Administration Levetiracetam 1,000 mg 02/06/25 21:00 02/09/25 09:21 Levetiracetam 500 Mg Tablet PO 1,000 mg Q12HR YOHANA Administration Metoprolol Succinate 50 mg 02/07/25 09:00 02/09/25 09:20 Metoprolol Succinate Ext Rel 50 Mg Tabcr PO 50 mg DAILY YOHANA Administration Morphine Sulfate 4 mg 02/06/25 11:03 02/09/25 00:35 Morphine Sulfate (*Crx) 4 Mg/Ml Inj IV PUSH 4 mg Q2H PRN Administration Pain Rated 7-10 Multivitamins/Minerals 1 tablet 02/06/25 21:00 02/09/25 09:16 Opti-Gen Tab PO 1 tablet Q12HR YOHANA Administration Naloxone HCl 0.1 mg 02/07/25 09:41 Naloxone Hcl 0.4 Mg/Ml Vial IV PUSH Q2M PRN Opiate Reversal Pantoprazole Sodium 20 mg 02/06/25 21:00 02/09/25 09:17 Pantoprazole Sod Sesquihydrate 20 Mg Tab PO 20 mg Q12HR YOHANA Administration Polyethylene Glycol 17 gm 02/07/25 09:00 02/09/25 09:21 Polyethylene Glycol 3350 17 Gm Powd.Pack PO 17 gm QAM YOHANA Administration Quetiapine Fumarate 12.5 mg 02/06/25 18:32 02/06/25 21:46 Quetiapine Fumarate 12.5 Mg Tablet PO 12.5 mg HS PRN Administration Delirium Rosuvastatin Calcium 40 mg 02/07/25 09:00 02/09/25 09:18 Rosuvastatin 20 Mg Tablet PO 40 mg DAILY YOHANA Administration Senna/Docusate Sodium 2 tab 02/07/25 17:00 02/09/25 09:21 Senna/Docusate Sodium Tablet PO 2 tab BID YOHANA Administration Vitamin B Complex 1 cap 02/07/25 09:00 02/09/25 09:21 Vitamin B Complex Capsule PO 1 cap DAILY YOHANA Administration Vitamin D 50 mcg 02/07/25 09:00 02/09/25 09:18 Cholecalciferol (Vitamin D3) 25 Mcg (1,000 Units) Tablet PO 50 mcg DAILY YOHANA Administration Radiology Results: ITS Impressions Head CT 02/06/25 07:57 IMPRESSION: 1. Old infarcts involving the cerebellum, right parietal-occipital region, and left occipital lobe. Cervical Spine CT 02/06/25 07:59 IMPRESSION: 1. No fracture. 2. Severe cervical spondylosis. Chest X-Ray 02/06/25 08:19 IMPRESSION: 1. No acute cardiopulmonary findings given portable technique. 2. Small nodular focus right midlung unchanged. Continued attention on future x-rays. Alternatively, CT chest in [address] 02/06/25 09:16 IMPRESSION: 1. Subcapital fracture of left femoral neck. 2. Moderate osteoarthritis of the hips. 3. Left inguinal hernia containing fat. Labs Labs: Laboratory Results - last 24 hr 02/09/25 07:30 WBC 7.9 RBC 2.75 L Hgb 8.6 L Hct 26.6 L MCV 96.7 MCH 31.3 MCHC 32.3 RDW 12.7 Plt Count 121 L MPV 9.4 Immature Gran % (Auto) 0.5 Neut % (Auto) 75.9 H Lymph % (Auto) 7.4 L [place] % (Auto) 12.7 H Eos % (Auto) 3.2 Baso % (Auto) 0.3 Lymph # (Auto) 0.58 L [place] # (Auto) 1.0 H Eos # (Auto) 0.3 Baso # (Auto) 0.0 Abs Immat Gran (auto) 0.04 H Absolute Neuts (auto) 6.0 Absolute Nucleated RBC 0.000 Nucleated RBC % 0.0 Sodium 129 L Potassium 4.6 Chloride 100 Carbon Dioxide 24 Anion Gap 5 BUN 26 H Creatinine 1.04 Estim Creat Clear Calc 49 Estimated GFR > 60 Glucose 112 H Calcium 8.3 L Magnesium 1.9 Total Bilirubin 0.6 AST 40 ALT 16 Alkaline Phosphatase 62 Total Protein 5.6 L Albumin 3.0 L
[2025-02-09 20:07] VITALS: RESP 20; O2SAT 97
[2025-02-10 05:20] LABS: Hematocrit 25.6 % (42.0-52.0); Hemoglobin 8.3 g/dL (14.0-18.0); Immature Granulocyte Percent A 0.6 % (0-0.5); Lymphocytes Absolute Auto 0.49 K/mm3 (0.9-3.2); Mean Corpuscular HGB Conc 32.4 g/dl (32-36); Mean Corpuscular Hemoglobin 31.0 pg (26-34); Mean Corpuscular Volume 95.5 fl (80-100); Nucleated Red Blood Cells Absolute Auto 0.000 K/mm3 (0.0-0.012); Nucleated Red Blood Cells Perc 0.0 % (0.0-0.2); Platelet Count Result 138 k/mm3 (150-375); Red Blood Count 2.68 M/mm3 (4.6-6.20); White Blood Count 6.6 K/mm3 (4.5-10.0)
[2025-02-10 05:34] LABS: Alanine Aminotransferase 71 U/L (6-50); Albumin Level 2.9 g/dL (3.5-5.1); Alkaline Phosphatase 64 U/L (38-126); Anion Gap 5 mmol/L (4-12); Aspartate Amino Transferase 127 U/L (17-59); Bilirubin,Total 0.6 mg/dL (0.2-1.3); Blood Urea Nitrogen 29 mg/dL (9-20); Calcium 8.5 mg/dL (8.4-10.2); Carbon Dioxide 26 mmol/L (22-30); Chloride 99 mmol/L (98-107); Estimated CRCL calculation 52 ml/min; Estimated Glomerular Filt Rate > 60; Glucose 115 mg/dL (65-110); Magnesium 2.0 mg/dL (1.6-2.3); Potassium 4.3 mmol/L (3.4-5.0); Sodium 130 mmol/L (137-145); Total Protein 5.3 g/dL (6.3-8.2)
[2025-02-10 06:15] VITALS: BP 126/53; PULSE 80; RESP 18; TEMP 36.8; O2SAT 100
--- NOTE | 2025-02-10 06:44 | P.PNOP_ITS ---
Progress Note: A&P Assessment and Plan (1) Closed subcapital fracture of neck of femur: Qualifiers: Encounter type: initial encounter Laterality: left Qualified Code(s): S72.012A - Unspecified intracapsular fracture of left femur, initial encounter for closed fracture Code(s): S72.019A - Unspecified intracapsular fracture of unspecified femur, initial encounter for closed fracture Status: Acute Assessment and Plan: Cont physical therapy and discharge planning, follow up with Dr Melendrez 2 weeks after discharge. Subjective Subjective Date/Time Seen: 02/09/25 06:44 Principal diagnosis: s/p Left Hip Vinod Interval history: Comfortable, eating well Exam Narrative: Left Hip Bandaged and dry Objective Data Vital Signs Vital Signs: Vital Signs - 24 hr 02/09/25 09:20 02/09/25 09:21 02/09/25 14:08 Temperature 36.4 C Pulse Rate 84 84 Respiratory Rate 16 14 Blood Pressure 111/58 L Pulse Oximetry 99 100 Oxygen Delivery Nasal Cannula Oxygen Flow Rate 2 Fraction of Inspired Oxygen 02/09/25 20:07 02/10/25 06:15 Temperature 36.8 C Pulse Rate 80 Respiratory Rate 20 18 Blood Pressure 126/53 L Pulse Oximetry 97 100 Oxygen Delivery Nasal Cannula Oxygen Flow Rate 2 Fraction of Inspired Oxygen 28 Intake/Output Intake/Output: Intake & Output 02/07/25 02/08/25 02/09/25 02/10/25 23:59 23:59 23:59 23:59 Intake Total 950 1020 925 Output Total 8628 255 7251 535 Balance -50 320 -75 -535 Meds/Results Medications: Active Medications Generic Name Dose Route Start Last Admin Trade Name Ositoq PRN Reason Stop Dose Admin Acetaminophen 500 mg 02/06/25 21:00 02/09/25 20:56 Acetaminophen 500 Mg Tablet PO 500 mg Q12HR YOHANA Administration Amitriptyline HCl 10 mg 02/06/25 17:00 02/09/25 16:16 Amitriptyline Hcl 10 Mg Tablet PO 10 mg BID YOHANA Administration Apixaban 5 mg 02/08/25 17:00 02/09/25 16:16 Apixaban 5 Mg Tablet PO 5 mg BID YOHANA Administration Ascorbic Acid 500 mg 02/07/25 09:00 02/09/25 09:21 Ascorbic Acid 500 Mg Tablet PO 500 mg DAILY YOHANA Administration Buspirone HCl 7.5 mg 02/06/25 21:00 02/09/25 20:57 Buspirone Hcl 2.5 Mg Tablet PO 7.5 mg Q12HR YOHANA Administration Clopidogrel Bisulfate 75 mg 02/07/25 09:00 02/09/25 09:17 Clopidogrel Bisulfate 75 Mg Tablet PO 75 mg DAILY YOHANA Administration Escitalopram Oxalate 20 mg 02/07/25 09:00 02/09/25 09:17 Escitalopram Oxalate 10 Mg Tablet PO 20 mg DAILY YOHANA Administration Ferrous Sulfate 325 mg 02/07/25 09:00 02/09/25 09:17 Ferrous Sulfate 325 Mg Tablet BY MOUTH 325 mg DAILY YOHANA Administration Fish Oil 1 gm 02/07/25 09:00 02/09/25 09:21 [place] 3 Polyunsat Fatty Acids 1 Gm Cap PO 1 gm DAILY YOHANA Administration Hydromorphone HCl 0.5 mg 02/07/25 09:41 Hydromorphone Hcl Inj (*Crx) 1 Mg/Ml Syr IV PUSH Q2H PRN Breakthrough Pain Rated 4-6 or NPO Hydroxyzine Pamoate 50 mg 02/07/25 09:41 Hydroxyzine Pamoate 25 Mg Capsule PO Q4H PRN Itching Isosorbide Mononitrate 30 mg 02/07/25 09:00 02/07/25 12:51 Isosorbide Mononitrate 30 Mg Tab.Er.24h PO 30 mg On Hold: 02/07/25 15:35 QAM YOHANA Administration Levetiracetam 1,000 mg 02/06/25 21:00 02/09/25 20:57 Levetiracetam 500 Mg Tablet PO 1,000 mg Q12HR YOHANA Administration Metoprolol Succinate 50 mg 02/07/25 09:00 02/09/25 09:20 Metoprolol Succinate Ext Rel 50 Mg Tabcr PO 50 mg DAILY YOHANA Administration Morphine Sulfate 4 mg 02/06/25 11:03 02/09/25 00:35 Morphine Sulfate (*Crx) 4 Mg/Ml Inj IV PUSH 4 mg Q2H PRN Administration Pain Rated 7-10 Multivitamins/Minerals 1 tablet 02/06/25 21:00 02/09/25 20:56 Opti-Gen Tab PO 1 tablet Q12HR YOHANA Administration Naloxone HCl 0.1 mg 02/07/25 09:41 Naloxone Hcl 0.4 Mg/Ml Vial IV PUSH Q2M PRN Opiate Reversal Pantoprazole Sodium 20 mg 02/06/25 21:00 02/09/25 20:57 Pantoprazole Sod Sesquihydrate 20 Mg Tab PO 20 mg Q12HR YOHANA Administration Polyethylene Glycol 17 gm 02/07/25 09:00 02/09/25 09:21 Polyethylene Glycol 3350 17 Gm Powd.Pack PO 17 gm QAM YOHANA Administration Quetiapine Fumarate 12.5 mg 02/06/25 18:32 02/06/25 21:46 Quetiapine Fumarate 12.5 Mg Tablet PO 12.5 mg HS PRN Administration Delirium Rosuvastatin Calcium 40 mg 02/07/25 09:00 02/09/25 09:18 Rosuvastatin 20 Mg Tablet PO 40 mg DAILY YOHANA Administration Senna/Docusate Sodium 2 tab 02/07/25 17:00 02/09/25 16:16 Senna/Docusate Sodium Tablet PO 2 tab BID YOHANA Administration Vitamin B Complex 1 cap 02/07/25 09:00 02/09/25 09:21 Vitamin B Complex Capsule PO 1 cap DAILY YOHANA Administration Vitamin D 50 mcg 02/07/25 09:00 02/09/25 09:18 Cholecalciferol (Vitamin D3) 25 Mcg (1,000 Units) Tablet PO 50 mcg DAILY YOHANA Administration Radiology Results: ITS Impressions Head CT 02/06/25 07:57 IMPRESSION: 1. Old infarcts involving the cerebellum, right parietal-occipital region, and left occipital lobe. Cervical Spine CT 02/06/25 07:59 IMPRESSION: 1. No fracture. 2. Severe cervical spondylosis. Chest X-Ray 02/06/25 08:19 IMPRESSION: 1. No acute cardiopulmonary findings given portable technique. 2. Small nodular focus right midlung unchanged. Continued attention on future x-rays. Alternatively, CT chest in [address] 02/06/25 09:16 IMPRESSION: 1. Subcapital fracture of left femoral neck. 2. Moderate osteoarthritis of the hips. 3. Left inguinal hernia containing fat. Labs Labs: Laboratory Results - last 24 hr 02/09/25 02/10/25 07:30 04:31 WBC 7.9 6.6 RBC 2.75 L 2.68 L Hgb 8.6 L 8.3 L Hct 26.6 L 25.6 L MCV 96.7 95.5 MCH 31.3 31.0 MCHC 32.3 32.4 RDW 12.7 12.4 Plt Count 121 L 138 L MPV 9.4 9.7 Immature Gran % (Auto) 0.5 0.6 H Neut % (Auto) 75.9 H 73.3 H Lymph % (Auto) 7.4 L 7.5 L [place] % (Auto) 12.7 H 14.3 H Eos % (Auto) 3.2 4.1 Baso % (Auto) 0.3 0.2 Lymph # (Auto) 0.58 L 0.49 L [place] # (Auto) 1.0 H 0.9 H Eos # (Auto) 0.3 0.3 Baso # (Auto) 0.0 0.0 Abs Immat Gran (auto) 0.04 H 0.04 H Absolute Neuts (auto) 6.0 4.8 Absolute Nucleated RBC 0.000 0.000 Nucleated RBC % 0.0 0.0 Sodium 129 L 130 L Potassium 4.6 4.3 Chloride 100 99 Carbon Dioxide 24 26 Anion Gap 5 5 BUN 26 H 29 H Creatinine 1.04 0.97 Estim Creat Clear Calc 49 52 Estimated GFR > 60 > 60 Glucose 112 H 115 H Calcium 8.3 L 8.5 Magnesium 1.9 2.0 Total Bilirubin 0.6 0.6 AST 40 127 H ALT 16 71 H Alkaline Phosphatase 62 64 Total Protein 5.6 L 5.3 L Albumin 3.0 L 2.9 L
[2025-02-10 07:46] VITALS: O2SAT 99
[2025-02-10 08:08] VITALS: O2SAT 95
[2025-02-10] MEDS: busPIRone HCL 2.5 MG TABLET 7.5 MG PO ×2 (09:34→20:15)
[2025-02-10] MEDS: ACETAMINOPHEN 500 MG TABLET PO ×2 (09:34→20:15)
[2025-02-10] MEDS: OMEGA 3 POLYUNSAT FATTY ACIDS 1 GM CAP PO (09:34)
[2025-02-10] MEDS: ESCITALOPRAM OXALATE 10 MG TABLET 20 MG PO (09:35)
[2025-02-10] MEDS: VITAMIN B COMPLEX CAPSULE 1 CAP PO (09:35)
[2025-02-10] MEDS: AMITRIPTYLINE HCL 10 MG TABLET PO ×2 (09:35→16:25)
[2025-02-10] MEDS: CHOLECALCIFEROL (VITAMIN D3) 25 MCG (1,000 UNITS) TABLET 50 MCG PO (09:35)
[2025-02-10] MEDS: APIXABAN 5 MG TABLET PO ×2 (09:35→16:25)
[2025-02-10] MEDS: ASCORBIC ACID 500 MG TABLET PO (09:35)
[2025-02-10] MEDS: FERROUS SULFATE 325 MG TABLET BY MOUTH (09:35)
[2025-02-10] MEDS: ROSUVASTATIN 20 MG TABLET 40 MG PO (09:35)
[2025-02-10] MEDS: CLOPIDOGREL BISULFATE 75 MG TABLET PO (09:35)
[2025-02-10] MEDS: PANTOPRAZOLE SOD SESQUIHYDRATE 20 MG TAB PO ×2 (09:35→20:15)
[2025-02-10] MEDS: OPTI-GEN TAB 1 TABLET PO ×2 (09:35→20:15)
[2025-02-10] MEDS: METOPROLOL SUCCINATE EXT REL 50 MG TABCR PO (09:36)
[2025-02-10] MEDS: SENNA/DOCUSATE SODIUM TABLET 2 TAB PO ×2 (09:36→16:25)
[2025-02-10 13:23] VITALS: BP 111/53; PULSE 81; RESP 18; TEMP 36.8; O2SAT 100
--- NOTE | 2025-02-10 17:02 | PM.IMPN ---
Progress Note: A&P Assessment and Plan (1) Generalized anxiety disorder: Code(s): F41.1 - Generalized anxiety disorder Status: Acute (2) Essential (primary) hypertension: Code(s): I10 - Essential (primary) hypertension Status: Chronic (3) Atherosclerotic heart disease of [place] coronary artery with unspecified angina pectoris: Qualifiers: [place] vs. transplanted heart: [place] heart Qualified Code(s): I25.119 - Atherosclerotic heart disease of [place] coronary artery with unspecified angina pectoris Code(s): I25.119 - Atherosclerotic heart disease of [place] coronary artery with unspecified angina pectoris Status: Acute (4) Chronic a-fib: Code(s): I48.20 - Chronic atrial fibrillation, unspecified Status: Acute (5) Type 2 diabetes mellitus with other diabetic kidney complication: Code(s): E11.29 - Type 2 diabetes mellitus with other diabetic kidney complication Status: Chronic (6) Chronic vascular disorders of intestine: Code(s): K55.1 - Chronic vascular disorders of intestine Status: Acute (7) History of multiple cerebrovascular accidents (CVAs): Code(s): Z86.73 - Personal history of transient ischemic attack (TIA), and cerebral infarction without residual deficits Status: Acute (8) Hx of seizure disorder: Code(s): Z86.69 - Personal history of other diseases of the nervous system and sense organs Status: Acute (9) Syncope and collapse: Code(s): R55 - Syncope and collapse Status: Acute (10) Closed left hip fracture: Code(s): S72.002A - Fracture of unspecified part of neck of left femur, initial encounter for closed fracture Status: Acute Plan 84-year-old male who was brought in by EMS after a fall at his assisted living facility. Patient states he was going to the bathroom when he fell. He does not recall how he fell. Denies any chest pain palpitations or shortness of breath. After a fall he complained of moderate to severe left hip pain. Comfortable, sitting in his chair, stats pain is on and off but tolerable, seen by his orthopedics and patient doing better with surgery and does not have any new complaints, participating in PT will benefit going to rehab, will monitor. In the ED his vitals were stable. Laboratory workup revealed WBC of 6.1 hemoglobin 12.2 platelet count a 179. Chem panel shows sodium 134 potassium 4.5 chloride 99 bicarbonate 27 BUN 13 creatinine 1 blood glucose 104. At these were normal. Urinalysis was negative for UTI. EKG showed atrial fibrillation with controlled rate with no acute ST-T changes. QTC of 421. CT head showed old infarcts involving the cerebellum right parietal occipital region and leg it occipital lobe. CT cervical spine showed no fracture with severe sepsis cervical spondylosis. Chest x-ray showed no acute cardiopulmonary findings. Small nodular focus right mid lung unchanged. X-ray left pelvis and femur showed possible left femoral cervical fracture but sub optimally visualized. Distal femur intact. Peripheral arterial disease X-ray left hip with subtle thin lucency beneath tibial component medial surface which could suggest loosening. Pelvic CT shows and confirms subcapital fracture of left femoral neck with moderate osteoarthritis of the hips. Left inguinal hernia containing fat noted as well. He is admitted in this setting for further treatment. Left hip fracture orthopedics consulted. Status post left hip arthroplasty 02/07/2025. PT OT to see Postoperative mild hypertension hold Imdur . received IV fluids. Postoperative anemia with no signs of bleeding. Will continue to monitor. Fall Possible syncope Ischemic cardiomyopathy with preserved ejection fraction. EF 12/23 5:60 to 65% Atrial fibrillation Coronary artery disease status post stents to RCA 08/2021 recent cardiac catheterization 12/14/2024: Left main 10% stenosis proximal body. Lad 20-30% InStent restenoses. Diagonal branch had several areas of 50% stenosis remainder of the LAD had diffuse 10% stenosis. LCX diffuse calcific 20-30% stenosis. Ramus intermedius calcified 20-30% stenosis RCA 50-60% InStent restenoses at the ostium. 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 resume Postop when okay with Orthopedics Disposition: Needs SNF placement. Care coordination on board Subjective Date/time seen: 02/10/25 17:02 Interval history: Comfortable, sitting in his chair, stats pain is on and off but tolerable, seen by his orthopedics and patient doing better with surgery and does not have any new complaints, participating in PT will benefit going to rehab, will monitor. Review of Systems Review of Systems: - CONSTITUTIONAL: Denies weight loss, fever and chills. - HEENT: Denies changes in vision and hearing - RESPIRATORY: Denies SOB and cough. - CV: Denies palpitations and CP. - GI: Denies abdominal pain, nausea, vomiting and diarrhea. - : Denies dysuria and urinary frequency. - MSK: See HPI - SKIN: Denies rash and pruritus. - NEUROLOGICAL: See HPI - PSYCHIATRIC: Denies recent changes in mood. Denies anxiety and depression. All systems reviewed & are unremarkable except as noted in HPI and below Exam Narrative: Elderly frail Patient is comfortable, NAD HEENT: eyes are clear and none icteric LUNGS:CTA HEART: RR S1S2 ABD: BS+, Soft and nontender Lower extremities: no edema SKIN: nonjaundiced Neuro: grossly intact. Objective Data Vital Signs Vital Signs: Vital Signs - 24 hr 02/09/25 20:07 02/10/25 06:15 02/10/25 07:46 Temperature 36.8 C Pulse Rate 80 Respiratory Rate 20 18 Blood Pressure 126/53 L Pulse Oximetry 97 100 99 Oxygen Delivery Nasal Cannula Nasal Cannula Oxygen Flow Rate 2 2 Fraction of Inspired Oxygen 28 02/10/25 08:08 02/10/25 09:37 02/10/25 13:23 Temperature 36.8 C Pulse Rate 81 Respiratory Rate 18 Blood Pressure 111/53 L Pulse Oximetry 95 100 Oxygen Delivery Room Air Room Air Oxygen Flow Rate Fraction of Inspired Oxygen 28 Intake/Output Intake/Output: Intake & Output 02/07/25 02/08/25 02/09/25 02/10/25 23:59 23:59 23:59 23:59 Intake Total 950 1020 925 480 Output Total 2490 321 7865 535 Balance -50 320 -75 -55 Meds/Results Medications: Active Medications Generic Name Dose Route Start Last Admin Trade Name Freq PRN Reason Stop Dose Admin Acetaminophen 500 mg 02/06/25 21:00 02/10/25 09:34 Acetaminophen 500 Mg Tablet PO 500 mg Q12HR YOHANA Administration Amitriptyline HCl 10 mg 02/06/25 17:00 02/10/25 16:25 Amitriptyline Hcl 10 Mg Tablet PO 10 mg BID YOHANA Administration Apixaban 5 mg 02/08/25 17:00 02/10/25 16:25 Apixaban 5 Mg Tablet PO 5 mg BID YOHANA Administration Ascorbic Acid 500 mg 02/07/25 09:00 02/10/25 09:35 Ascorbic Acid 500 Mg Tablet PO 500 mg DAILY YOHANA Administration Buspirone HCl 7.5 mg 02/06/25 21:00 02/10/25 09:34 Buspirone Hcl 2.5 Mg Tablet PO 7.5 mg Q12HR YOHANA Administration Clopidogrel Bisulfate 75 mg 02/07/25 09:00 02/10/25 09:35 Clopidogrel Bisulfate 75 Mg Tablet PO 75 mg DAILY YOHANA Administration Escitalopram Oxalate 20 mg 02/07/25 09:00 02/10/25 09:35 Escitalopram Oxalate 10 Mg Tablet PO 20 mg DAILY YOHANA Administration Ferrous Sulfate 325 mg 02/07/25 09:00 02/10/25 09:35 Ferrous Sulfate 325 Mg Tablet BY MOUTH 325 mg DAILY [facility] Administration Fish Oil 1 gm 02/07/25 09:00 02/10/25 09:34 [place] 3 Polyunsat Fatty Acids 1 Gm Cap PO 1 gm DAILY YOHANA Administration Hydromorphone HCl 0.5 mg 02/07/25 09:41 Hydromorphone Hcl Inj (*Crx) 1 Mg/Ml Syr IV PUSH Q2H PRN Breakthrough Pain Rated 4-6 or NPO Hydroxyzine Pamoate 50 mg 02/07/25 09:41 Hydroxyzine Pamoate 25 Mg Capsule PO Q4H PRN Itching Isosorbide Mononitrate 30 mg 02/07/25 09:00 02/07/25 12:51 Isosorbide Mononitrate 30 Mg Tab.Er.24h PO 30 mg On Hold: 02/07/25 15:35 QAM YOHANA Administration Levetiracetam 1,000 mg 02/06/25 21:00 02/10/25 10:13 Levetiracetam 500 Mg Tablet PO 1,000 mg Q12HR [facility] Administration Metoprolol Succinate 50 mg 02/07/25 09:00 02/10/25 09:36 Metoprolol Succinate Ext Rel 50 Mg Tabcr PO 50 mg DAILY [facility] Administration Morphine Sulfate 4 mg 02/06/25 11:03 02/09/25 00:35 Morphine Sulfate (*Crx) 4 Mg/Ml Inj IV PUSH 4 mg Q2H PRN Administration Pain Rated 7-10 Multivitamins/Minerals 1 tablet 02/06/25 21:00 02/10/25 09:35 Opti-Gen Tab PO 1 tablet Q12HR YOHANA Administration Naloxone HCl 0.1 mg 02/07/25 09:41 Naloxone Hcl 0.4 Mg/Ml Vial IV PUSH Q2M PRN Opiate Reversal Pantoprazole Sodium 20 mg 02/06/25 21:00 02/10/25 09:35 Pantoprazole Sod Sesquihydrate 20 Mg Tab PO 20 mg Q12HR YOHANA Administration Polyethylene Glycol 17 gm 02/07/25 09:00 02/10/25 09:37 Polyethylene Glycol 3350 17 Gm Powd.Pack PO 17 gm QAM YOHANA Administration Quetiapine Fumarate 12.5 mg 02/06/25 18:32 02/06/25 21:46 Quetiapine Fumarate 12.5 Mg Tablet PO 12.5 mg HS PRN Administration Delirium Rosuvastatin Calcium 40 mg 02/07/25 09:00 02/10/25 09:35 Rosuvastatin 20 Mg Tablet PO 40 mg DAILY YOHANA Administration Senna/Docusate Sodium 2 tab 02/07/25 17:00 02/10/25 16:25 Senna/Docusate Sodium Tablet PO 2 tab BID YOHANA Administration Vitamin B Complex 1 cap 02/07/25 09:00 02/10/25 09:35 Vitamin B Complex Capsule PO 1 cap DAILY YOHANA Administration Vitamin D 50 mcg 02/07/25 09:00 02/10/25 09:35 Cholecalciferol (Vitamin D3) 25 Mcg (1,000 Units) Tablet PO 50 mcg DAILY YOHANA Administration Radiology Results: ITS Impressions Head CT 02/06/25 07:57 IMPRESSION: 1. Old infarcts involving the cerebellum, right parietal-occipital region, and left occipital lobe. Cervical Spine CT 02/06/25 07:59 IMPRESSION: 1. No fracture. 2. Severe cervical spondylosis. Chest X-Ray 02/06/25 08:19 IMPRESSION: 1. No acute cardiopulmonary findings given portable technique. 2. Small nodular focus right midlung unchanged. Continued attention on future x-rays. Alternatively, CT chest in [address] 02/06/25 09:16 IMPRESSION: 1. Subcapital fracture of left femoral neck. 2. Moderate osteoarthritis of the hips. 3. Left inguinal hernia containing fat. Labs Labs: Laboratory Results - last 24 hr 02/10/25 04:31 WBC 6.6 RBC 2.68 L Hgb 8.3 L Hct 25.6 L MCV 95.5 MCH 31.0 MCHC 32.4 RDW 12.4 Plt Count 138 L MPV 9.7 Immature Gran % (Auto) 0.6 H Neut % (Auto) 73.3 H Lymph % (Auto) 7.5 L [place] % (Auto) 14.3 H Eos % (Auto) 4.1 Baso % (Auto) 0.2 Lymph # (Auto) 0.49 L [place] # (Auto) 0.9 H Eos # (Auto) 0.3 Baso # (Auto) 0.0 Abs Immat Gran (auto) 0.04 H Absolute Neuts (auto) 4.8 Absolute Nucleated RBC 0.000 Nucleated RBC % 0.0 Sodium 130 L Potassium 4.3 Chloride 99 Carbon Dioxide 26 Anion Gap 5 BUN 29 H Creatinine 0.97 Estim Creat Clear Calc 52 Estimated GFR > 60 Glucose 115 H Calcium 8.5 Magnesium 2.0 Total Bilirubin 0.6 AST 127 H ALT 71 H Alkaline Phosphatase 64 Total Protein 5.3 L Albumin 2.9 L
[2025-02-10 18:27] VITALS: BP 133/63; PULSE 90; RESP 18; TEMP 36.9; O2SAT 99
[2025-02-10 20:00] VITALS: PULSE 90; RESP 18; O2SAT 99
[2025-02-11 06:18] VITALS: BP 140/64; PULSE 100; RESP 18; TEMP 36.6; O2SAT 98
[2025-02-11] MEDS: busPIRone HCL 2.5 MG TABLET 7.5 MG PO (09:31)
[2025-02-11] MEDS: APIXABAN 5 MG TABLET PO (09:31)
[2025-02-11] MEDS: ROSUVASTATIN 20 MG TABLET 40 MG PO (09:31)
[2025-02-11] MEDS: ACETAMINOPHEN 500 MG TABLET PO (09:31)
[2025-02-11 09:32] VITALS: PULSE 100
[2025-02-11] MEDS: ASCORBIC ACID 500 MG TABLET PO (09:32)
[2025-02-11] MEDS: METOPROLOL SUCCINATE EXT REL 50 MG TABCR PO (09:32)
[2025-02-11] MEDS: VITAMIN B COMPLEX CAPSULE 1 CAP PO (09:32)
[2025-02-11] MEDS: CLOPIDOGREL BISULFATE 75 MG TABLET PO (09:32)
[2025-02-11] MEDS: FERROUS SULFATE 325 MG TABLET BY MOUTH (09:32)
[2025-02-11] MEDS: ESCITALOPRAM OXALATE 10 MG TABLET 20 MG PO (09:33)
[2025-02-11] MEDS: CHOLECALCIFEROL (VITAMIN D3) 25 MCG (1,000 UNITS) TABLET 50 MCG PO (09:33)
[2025-02-11] MEDS: OMEGA 3 POLYUNSAT FATTY ACIDS 1 GM CAP PO (09:33)
[2025-02-11] MEDS: SENNA/DOCUSATE SODIUM TABLET 2 TAB PO (09:33)
[2025-02-11] MEDS: AMITRIPTYLINE HCL 10 MG TABLET PO (09:33)
[2025-02-11] MEDS: OPTI-GEN TAB 1 TABLET PO (09:33)
[2025-02-11] MEDS: PANTOPRAZOLE SOD SESQUIHYDRATE 20 MG TAB PO (09:34)
--- NOTE | 2025-02-11 14:09 | P.DS_ITS ---
DS: Admitting Diagnosis Discharge Date 02/11/25 Admitting Diagnosis Fall DS: Discharge Diagnosis Discharge Diagnosis (1) Generalized anxiety disorder: Code(s): F41.1 - Generalized anxiety disorder Status: Acute (2) Essential (primary) hypertension: Code(s): I10 - Essential (primary) hypertension Status: Chronic (3) Atherosclerotic heart disease of [place] coronary artery with unspecified angina pectoris: Qualifiers: [place] vs. transplanted heart: [place] heart Qualified Code(s): I25.119 - Atherosclerotic heart disease of [place] coronary artery with unspecified angina pectoris Code(s): I25.119 - Atherosclerotic heart disease of [place] coronary artery with unspecified angina pectoris Status: Acute (4) Chronic a-fib: Code(s): I48.20 - Chronic atrial fibrillation, unspecified Status: Acute (5) Type 2 diabetes mellitus with other diabetic kidney complication: Code(s): E11.29 - Type 2 diabetes mellitus with other diabetic kidney complication Status: Chronic (6) Chronic vascular disorders of intestine: Code(s): K55.1 - Chronic vascular disorders of intestine Status: Acute (7) History of multiple cerebrovascular accidents (CVAs): Code(s): Z86.73 - Personal history of transient ischemic attack (TIA), and cerebral infarction without residual deficits Status: Acute (8) Hx of seizure disorder: Code(s): Z86.69 - Personal history of other diseases of the nervous system and sense organs Status: Acute (9) Syncope and collapse: Code(s): R55 - Syncope and collapse Status: Acute (10) Closed left hip fracture: Code(s): S72.002A - Fracture of unspecified part of neck of left femur, initial encounter for closed fracture Status: Acute Plan 84-year-old male who was brought in by EMS after a fall at his assisted living facility. Patient states he was going to the bathroom when he fell. He does not recall how he fell. Denies any chest pain palpitations or shortness of breath. After a fall he complained of moderate to severe left hip pain. Comfortable, sitting in his chair, stats pain is on and off but tolerable, seen by his orthopedics and patient doing better with surgery and does not have any new complaints, participating in PT will benefit going to rehab, will monitor. In the ED his vitals were stable. Laboratory workup revealed WBC of 6.1 hemoglobin 12.2 platelet count a 179. Chem panel shows sodium 134 potassium 4.5 chloride 99 bicarbonate 27 BUN 13 creatinine 1 blood glucose 104. At these were normal. Urinalysis was negative for UTI. EKG showed atrial fibrillation with controlled rate with no acute ST-T changes. QTC of 421. CT head showed old infarcts involving the cerebellum right parietal occipital region and leg it occipital lobe. CT cervical spine showed no fracture with severe sepsis cervical spondylosis. Chest x-ray showed no acute cardiopulmonary findings. Small nodular focus right mid lung unchanged. X-ray left pelvis and femur showed possible left femoral cervical fracture but sub optimally visualized. Distal femur intact. Peripheral arterial disease X-ray left hip with subtle thin lucency beneath tibial component medial surface which could suggest loosening. Pelvic CT shows and confirms subcapital fracture of left femoral neck with moderate osteoarthritis of the hips. Left inguinal hernia containing fat noted as well. He is admitted in this setting for further treatment. Left hip fracture orthopedics consulted. Status post left hip arthroplasty 09/2024. PT OT to see Postoperative mild hypertension hold Imdur . received IV fluids. Postoperative anemia with no signs of bleeding. Will continue to monitor. Fall Possible syncope Ischemic cardiomyopathy with preserved ejection fraction. EF 12/23 5:60 to 65% Atrial fibrillation Coronary artery disease status post stents to RCA 08/2021 recent cardiac catheterization 12/14/2024: Left main 10% stenosis proximal body. Lad 20-30% InStent restenoses. Diagonal branch had several areas of 50% stenosis remainder of the LAD had diffuse 10% stenosis. LCX diffuse calcific 20-30% stenosis. Ra mus intermedius calcified 20-30% stenosis RCA 50-60% InStent restenoses at the ostium. 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 resume Postop when okay with Orthopedics Disposition: Needs SNF placement. Care coordination on board DS: Summary Hospital Course Hospital Course: 84-year-old male who was brought in by EMS after a fall at his assisted living facility. Patient states he was going to the bathroom when he fell. He does not recall how he fell. Denies any chest pain palpitations or shortness of breath. After a fall he complained of moderate to severe left hip pain. Patient was found to have subcapital fracture of left femoral neck, patient was seen by the orthopedic surgeon and had a surgical repair, patient stats feeling better and working with PT, patient is seen by his surgeon and clinically stable to be discharged rehab facility, will discharge today. Time Spent with Patient Time attestation: Total time spent providing and/or coordinating discharge services: Exam Narrative: Elderly frail Patient is comfortable, NAD HEENT: eyes are clear and none icteric LUNGS:CTA HEART: RR S1S2 ABD: BS+, Soft and nontender Lower extremities: no edema SKIN: nonjaundiced Neuro: grossly intact. Discharge Plan Discharge Attending physician on discharge: Edel Lozano Consulting providers: Jared Melendrez; Mike Jett; Joe Ernst; Shawn Viera; Robert Mclaughlin; Masoud Camargo V.; Trip Gomez Discharging Clinician: Piotr Garcia Patient Disposition: [facility] Activity: as tolerated Diet: heart healthy Discharge Instructions: patient to follow discharge care instruction from his surgeon and follow up as scheduled, patient to follow up with his primary care provider as soon as possible Patient Instructions: Antibiotic Form Patient Language: Samoan Stand Alone Forms: General Discharge Information Follow-up/Referrals: Daren Colvin MD [Primary Care Provider, Family Practice] Jared Melendrez MD [Physician, Orthopedics] Discharge Medications: New sennosides-docusate sodium [Senokot-S] 8.6-50 mg Tablet 2 tab PO BID Qty: 30 0RF hydrocodone-acetaminophen 5-325 mg tablet 1 tablet PO Q6H PRN (Reason: pain) Qty: 12 0RF Continued clopidogrel 75 mg tablet 75 mg PO DAILY Qty: 90 1RF metoprolol succinate 50 mg tablet extended release 24 hr 50 mg PO DAILY Qty: 100 1RF rosuvastatin 40 mg tablet 40 mg PO DAILY Qty: 90 1RF coenzyme Q10 100 mg capsule 200 mg PO DAILY cholecalciferol (vitamin D3) 125 mcg (5,000 unit) capsule 50 mcg PO DAILY acetaminophen 500 mg capsule 500 mg PO .q12hr omega 7-chw-ins-fish oil [Fish Oil] 1,200 (144-216) mg capsule 1 cap PO DAILY ferrous sulfate 325 mg (65 mg iron) tablet 325 mg PO DAILY Qty: 90 0RF ascorbic acid (vitamin C) 500 mg Tablet 500 mg PO DAILY vitamin B complex [B Complex-Vitamin B12] Tablet 1 tablet PO DAILY PreserVision AREDS-2 250-90-40-1 mg Capsule 1 tablet PO .q12hr pantoprazole [Protonix] 40 mg tablet,delayed release (DR/EC) 20 mg PO Q12H levetiracetam 1,000 mg tablet 1,000 mg PO Q12H polyethylene glycol 3350 [Miralax] 17 gram Powder In Packet 17 g PO QAM Qty: 14 0RF escitalopram oxalate 10 mg tablet 20 mg PO DAILY isosorbide mononitrate 30 mg Tablet Extended Release 24 Hr 30 mg PO QAM Qty: 15 0RF Eliquis 5 mg tablet 5 mg PO BID Qty: 60 0RF buspirone 7.5 mg tablet 7.5 mg PO BID amitriptyline 10 mg tablet 10 mg PO BID Date of admission: 02/07/25 09:30 Primary Care Provider: Daren Colvin Admitting Provider: Edel Lozano Attending physician on admission: Piotr Garcia Condition: Stable
== END 2025-02-11 16:45 | DRG 522 ==
LOC: ANHED 07:19 → ANH3MEDSUR 11:45 → ANH2MED 11:53
PROVIDERS: Internal Medicine; Orthopaedic Surgery; Admitting Provider Internal Medicine; Emergency Provider Preventive Medicine Aerospace Medicine; PCP Family Medicine; Visit Provider Family Medicine
PROC: 0SRS0JZ Replacement of Left Hip Joint, Femoral Surface with Synthetic Substitute, Open Approach (ICD-10-PCS; CPT 27125; principal; 2025-02-07 07:00)
DX: S72.012A Unspecified intracapsular fracture of left femur, initial encounter for closed fracture (principal); E87.1 Hypo-osmolality and hyponatremia; I48.20 Chronic atrial fibrillation, unspecified; K55.1 Chronic vascular disorders of intestine; G40.909 Epilepsy, unspecified, not intractable, without status epilepticus; W19.XXXA Unspecified fall, initial encounter; D64.9 Anemia, unspecified; F41.1 Generalized anxiety disorder; E11.29 Type 2 diabetes mellitus with other diabetic kidney complication; E78.5 Hyperlipidemia, unspecified; K21.9 Gastro-esophageal reflux disease without esophagitis; K57.90 Diverticulosis of intestine, part unspecified, without perforation or abscess without bleeding; I10 Essential (primary) hypertension; I25.10 Atherosclerotic heart disease of native coronary artery without angina pectoris; I25.5 Ischemic cardiomyopathy; Z90.49 Acquired absence of other specified parts of digestive tract; Z96.653 Presence of artificial knee joint, bilateral; Z87.891 Personal history of nicotine dependence; Z86.73 Personal history of transient ischemic attack (TIA), and cerebral infarction without residual deficits; Z95.5 Presence of coronary angioplasty implant and graft
CPT/HCPCS: 36415; 70450; 71045; 72125; 72170; 72192; 73552; 73562; 80048; 80053; 81001; 83735; 85025; 86850; 86900; 86901; 93005; 96365; 96375; 97110; 97162; 97166; 97530; 97535; 99285; J0690; A9270; C1776; G0378; J1100; J1171; J2004; J2270; J2405; J2704; J3010; J7030; J7040; J7120